=== PATIENT | female | born 1950 | race Caucasian/White ===

== ENCOUNTER 2016-12-12 14:30 | Outpatient (CLI) | payer MEDICARE, OTHER ==
[~2016-12-12] VITALS: Ht 167.6 cm; Wt 96.6 kg
--- NOTE | ~2016-12-12 | HEMODYNAMI ---
PATIENT:ANGELES LEAL MEDICAL RECORD: [id number] : 54 [facility] [id number] ADMISSION DATE: 12/12/16 Generatedon:12/13/201616:30 Patient name: ANGELES LEAL Patient #: [id number] SSN: D OB: 1950 Date of study: 12/13/2016 Page: Of Hemodynamic Procedure Report Patient Data Patient Demographics Procedure consent was obtained First Name: ANGELES Gender: Female Last Name: MEL : 1950 Patient #: [id number] Age: 66 year(s) Race: Additional ID: [id number] Contact details [address]: [address] [place] [address] State: [place] City: [place] Zip code: [address] Past Medical History History of disease Date Diagnosis Comments CAD Allergies Allergen Reaction Date Comments Reported Other allergy 10/17/2015 LIDOCAINE PRAVACHOL CETACAINE BENZOCAINE Tetracycline 12/13/2016 Other allergy 12/13/2016 PRAVASTATIN, BENZOCAINE, BUTAMBEN Other allergy 12/13/2016 LIDOCAINE Admission Admission Data Admission Date: 12/12/2016 Admission Time: 14:44 Room #: 2115 Weight (lbs.): 229.28 Weight (kg.): 104 Lab Results Lab Result Date: 12/13/2016 Lab Result Time: 0:00 Biochemistry Name Units Result Min Max BUN mg/dl 20 --(----)*- 7 18 Creatinine mg/dl 0.9 --(-*--)-- 0.6 1.3 CBC Name Units Result Min Max Hemoglobin g/dl 14.6 --(-*--)-- 13.5 17.5 Procedure Procedure Types Cath Procedure Diagnostic Procedure LHC LHC w/Coronaries w/Grafts PCI Procedure SVG-BMS/ALVINO Initial Miscellaneous Procedures Moderate Sedation up to 45 minutes Procedure Description Procedure Date Procedure Date: 12/13/2016 Procedure Start Time: 15:49 Procedure End Time: 16:26 Procedure Staff Name Function Ector Vera MD Performing Physician Abbey López RN Nurse Laurent Sanches RT Monitor Shabbir Sorenson RT Scrub Procedure Data Cath Procedure Fluoroscopy Diagnostic fluoroscopy Total fluoroscopy Time: time: 15.3 min 15.3 min Diagnostic fluoroscopy Total fluoroscopy dose: dose: 1255 mGy 1255 mGy Contrast Material Contrast Material Type Amount (ml) Isovue 300 212 Entry Location Entry Primary Successful Side Size Upsize Upsize Entry Closure Succes sful Closure Location (Fr) 1 (Fr) 2 (Fr) Remarks Device Remarks Femoral Right 5 Fr 6 Fr Vascade artery Short Closure System Diagnostic catheters Device Type Used For End Catheter Placement Cordis 5Fr Pigtail LV Angiography Catheter (MP) Cordis 5Fr JL 4.0 Left Coronary Catheter (MP) Angiography Cordis 5Fr 3DRC Catheter SVG Angiography (MP) Diagnostic Infinity 5Fr SVG Angiography AR 2 MOD catheter Procedure Complications No complications Procedure Medications Medication Administration Route Dosage Oxygen NC 2 l/min Heparin Flush Bag added to field 2 bags (1000units/500ml NS) Versed I.V. 1 mg Fentanyl I.V. 50 mcg Versed I.V. 1 mg Fentanyl I.V. 50 mcg Fentanyl I.V. 25 mcg Versed I.V. 0.5 mg Fentanyl I.V. 25 mcg Versed I.V. 0.5 mg Heparin Bolus I.V. 4000 units Fentanyl I.V. 25 mcg Versed I.V. 0.5 mg Fentanyl I.V. 25 mcg Versed I.V. 0.5 mg Plavix P.O. 75 mg Hemodynamics Rest HGB: 14.6 (g/dl) Heart Rate: 58 (bpm) Snapshots Pre Cath Intra NCS Post Cath Vital Signs Time Heart Resp SPO2 etCO2 PN3dwel NIBP (mmHg) Rhythm Pain Sedation Rate (ipm) (%) (mmHg) (mmHg) Status Level (bpm) 15:35:11 61 15 100 0 0 158/84(109) NSR 0 (11) 10(A) , No pain 15:39:35 58 16 96 0 0 160/76(132) NSR 0 (11) 10(A) , No pain 15:44:01 56 15 96 0 0 148/68(115) NSR 0 (11) 10(A) , No pain 15:48:23 55 16 98 0 0 134/66(103) NSR 0 (11) 10(A) , No pain 15:52:40 59 15 100 0 0 148/70(121) NSR 0 (11) 10(A) , No pain 15:57:02 57 16 99 0 0 141/67(117) NSR 0 (11) 9(A) , No pain 16:01:22 61 16 98 0 0 123/63(100) NSR 0 (11) 9(A) , No pain 16:05:36 60 16 98 0 0 119/61(92) NSR 0 (11) 9(A) , No pain 16:09:50 60 16 97 0 0 109/60(80) NSR 0 (11) 9(A) , No pain 16:13:57 60 16 98 0 0 129/67(105) NSR 0 (11) 9(A) , No pain 16:18:11 60 16 98 0 0 135/69(104) NSR 0 (11) 9(A) , No pain 16:22:28 59 16 99 0 0 125/70(101) NSR 0 (11) 9(A) , No pain 16:24:39 59 16 98 0 0 142/70(122) NSR 0 (11) 9(A) , No pain Medications Time Medication Route Dose Verified Delivered Reason Notes Effectiveness by by 15:35:25 Oxygen NC 2 Ector Abbey Per physician l/min Jody López RN 15:35:32 Heparin Flush added 2 Ector Abbey used for Bag to bags Jody López RN procedure (1000units/500ml field NS) 15:41:27 Versed I.V. 1 mg Ector Abbey for sedation Jody López RN 15:41:34 Fentanyl I.V. 50 Ector Abbey for sedation mcg Jody López RN 15:45:56 Versed I.V. 1 mg Ector Abbey for sedation Jody López RN 15:45:59 Fentanyl I.V. 50 Ector Abbey for sedation mcg Jody López RN 15:47:17 Fentanyl I.V. 25 Ector Abbey for sedation mcg Jody López RN 15:47:21 Versed I.V. 0.5 Ector Abbey for sedation mg Jody López RN 15:50:20 Fentanyl I.V. 25 Ector Abbey for sedation mcg Jody López RN 15:50:29 Versed I.V. 0.5 Ector Abbey for sedation mg Jody López RN 15:52:05 Fentanyl I.V. 25 Ector Abbey for sedation mcg Jody López RN 15:52:36 Versed I.V. 0.5 Ector Abbey for sedation mg Jody López RN 15:56:11 Heparin Bolus I.V. 4000 Ector Abbey for verifi ed units Jody López RN anticoagulation with dr vera 16:00:05 Fentanyl I.V. 25 Ector Abbey for sedation mcg Jody López RN 16:00:23 Versed I.V. 0.5 Ector Abbey for sedation mg Jody López RN 16:23:49 Plavix P.O. 75 mg Ector Abbey for Jody López RN antiplatelet therapy Procedure Log Time Note 14:59:32 Time tracking: Regular hours 14:59:37 Plan of Care:Hemodynamics will remain stable., Cardiac rhythm will remain stable., Comfort level will be maintained., Respiratory function will remain adequate., Patient/ family verbilizes understanding of procedure., Procedure tolerated without complication., Recovers from procedure without complications.. 15:00:38 Laurent Sanches RT(R) sent for patient. Start room use. 15:31:35 Patient received from PCU to CCL 1 Alert and oriented. Tansferred to table in Supine position. 15:31:36 Warm blankets applied, and estela hugger turned on for patient comfort. 15:31:36 Correct patient and procedure confirmed by team. 15:31:38 Signed procedure consent form obtained from patient. 15:31:38 ECG and BP/O2 sat monitors applied to patient. 15:33:57 Vital chart was started 15:35:25 Oxygen 2 l/min NC was given by Abbey López RN; Per physician; 15:35:32 Heparin Flush Bag (1000units/500ml NS) 2 bags added to field was given by Abbey López RN; used for procedure; 15:35:41 ACC Patient presents with Unstable Angina CCS Anginal Class 3--Marked limitation of physical activity, angina occurs with ordinary activity.. 15:35:43 Diagnostic Cath status Urgent 15:36:40 Baseline sample Acquired. 15:36:44 Rhythm: sinus rhythm 15:36:46 Full Disclosure recording started 15:36:50 H&P Date Dictated: 12/13/2016 Within 30 days and on chart.. 15:36:51 Pre-procedure instructions explained to patient. 15:36:51 Pre-op teaching completed and patient verbalized understanding. 15:36:54 Family in patients room. 15:36:59 Patient NPO since Midnight. 15:37:21 Patient allergic to Tetracycline 15:37:48 Patient allergic to Other allergyPRAVASTATIN, BENZOCAINE, BUTAMBEN 15:37:50 Is the patient allergic to Iodine/contrast media? No. 15:37:54 Is patient on blood thinner?Yes 15:37:57 ACC The patient was administered the following blood thiners within the last 24 hours: ACCPlavix 15:38:09 Patient diabetic? Yes. 15:38:10 If diabetic: On Metformin? Yes 15:38:15 If on Metformin: Last Dose? 12/12/2016 15:38:17 ----Pre-sedation anethsthesia assessment.---- 15:38:19 Previous problem with sedation/anesthesia? No ? 15:38:23 Snore? Yes 15:38:25 Sleep apnea? Yes 15:38:26 Deviated septum? No 15:38:27 Opens mouth fully? Yes 15:38:28 Sticks out tongue? Yes 15:38:47 Airway obstruction? Yes BRONCHITIS 15:38:53 Dentures? No ? 15:38:55 Pre procedure: right dorsailis pedis pulse 1+ Palpable, but thready & weak; easily obliterated 15:38:59 Patient pain scale 0/10 ?. 15:39:03 IV patent on arrival in left forearm with 0.9% NaCl at 10ml/hr. 15:40:01 Lab Result : BUN 20 mg/dl 15:40:01 Lab Result : Creatinine 0.9 mg/dl 15:40:01 Lab Result : Hemoglobin 14.6 g/dl 15:40:15 Lab results completed and on chart. 15:40:19 Right groin area was prepped with chlora-prep and draped in sterile fashion 15:40:20 Alarms reviewed by R. N. 15:40:20 Sharps counted by scrub and verified by R.N. 15:40:21 --------ALL STOP TIME OUT------ 15:40:21 Final Timeout: patient, procedure, and site verified with staff and physician. All members of the team are in agreement. 15:40:27 Right groin site verified by team. 15:40:32 Physical assessment completed. ASA score P 2 - A patient with mild systemic disease as per Ector Vera MD. 15:40:36 Sedation plan: IV Moderate Sedation Versed, Fentanyl 15:41:06 Use device set Femoral Dx 15:41:08 Acist Syringe opened to sterile field. 15:41:08 Bag Decanter opened to sterile field. 15:41:08 Medline Cath Pack opened to sterile field. 15:41:09 Terumo 5Fr Waban Sheath opened to sterile field. 15:41:09 St Christiano 260cm J .035 wire opened to sterile field. 15:41:10 Acist Hand Control opened to sterile field. 15:41:11 Acist Manifold opened to sterile field. 15:41:11 Diagnostic Infinity 5Fr Multipack catheter opened to sterile field. 15:41:11 Tegaderm 4 x 4 opened to sterile field. 15:41:27 Versed 1 mg I.V. was given by Abbey López RN; for sedation; 15:41:34 Fentanyl 50 mcg I.V. was given by Abbey López RN; for sedation; 15:42:00 Patient Weight : 229.28 lbs 15:42:41 Patient allergic to Other allergyLIDOCAINE 15:45:56 Versed 1 mg I.V. was given by Abbey López RN; for sedation; 15:45:59 Fentanyl 50 mcg I.V. was given by Abbey López RN; for sedation; 15:47:17 Fentanyl 25 mcg I.V. was given by Abbey López RN; for sedation; 15:47:21 Versed 0.5 mg I.V. was given by Abbey López RN; for sedation; 15:49:50 Procedure started. 15:50:20 Fentanyl 25 mcg I.V. was given by Abbey López RN; for sedation; 15:50:21 A 5 Fr sheath was inserted into the Right Femoral artery 15:50:29 Versed 0.5 mg I.V. was given by Abbey López RN; for sedation; 15:50:29 A Cordis 5Fr Pigtail Catheter (MP) was advanced over the wire and used for LV Angiography. 15:50:59 LV angiography performed. 15:51:03 EF : 60 % 15:51:05 LV gram done using JAUREGUI 15:51:08 Catheter removed. 15:51:51 A Cordis 5Fr JL 4.0 Catheter (MP) was advanced over the wire and used for Left Coronary Angiography. 15:51:55 LCA angiography performed. 15:52:05 Fentanyl 25 mcg I.V. was given by Abbey López RN; for sedation; 15:52:13 Catheter removed. 15:52:20 A Cordis 5Fr 3DRC Catheter (MP) was advanced over the wire and used for SVG Angiography. 15:52:25 RCA angiography performed. 15:52:36 Versed 0.5 mg I.V. was given by Abbey López RN; for sedation; 15:52:39 DUMONT to LAD angiography performed. 15:52:48 ACCDominant side:Co-Dominant 15:52:53 RCA angiography performed. 15:52:57 Catheter removed. 15:53:04 A Diagnostic Infinity 5Fr AR 2 MOD catheter was advanced over the wire and used for SVG Angiography. 15:53:49 SVG to OM angiography performed. 15:53:53 SVG to RCA angiography performed. 15:54:51 Catheter removed. 15:56:03 Terumo 6Fr Waban Sheath opened to sterile field. 15:56:03 Wasabi 3D BasixCompak Inflation Kit opened to sterile field. 15:56:04 Cantu Whisper J 300cm 0.014 guide wire opened to sterile field. 15:56:04 Spayeetronic Launcher 6Fr MB 1 guide catheter opened to sterile field. 15:56:11 Heparin Bolus 4000 units I.V. was given by Abbey López RN; for anticoagulation; verified with dr vera 15:56:12 Sheath upsized to a 6 Fr Short. 15:56:20 6 Fr MB 1 guide catheter was inserted over the wire 15:57:58 Guide catheter removed. 15:58:20 Medtronic Launcher 6Fr AR 2.0 guide catheter opened to sterile field. 15:58:27 6 Fr AR 2 guide catheter was inserted over the wire 15:59:13 ACC PCI Site: dRCA has 80% stenosis. 15:59:15 ACC Pre-intervention RUSTAM Flow is 3. 15:59:26 WHISPER wire advanced. 16:00:05 Fentanyl 25 mcg I.V. was given by Abbey López RN; for sedation; 16:00:23 Versed 0.5 mg I.V. was given by Abbey López RN; for sedation; 16:01:00 The Spayeetronic Integrity 2.25 X 14 stent was advanced then removed because of failure to cross lesion 16:01:03 Stent catheter was removed intact over wire. 16:01:04 Wire removed. 16:01:04 Guide catheter removed. 16:01:13 Medtronic Launcher 6Fr MB 2 guide catheter opened to sterile field. 16:01:26 6 Fr MB 2 guide catheter was inserted over the wire 16:02:44 Catheter removed. unable to cannulate vessel. 16:04:52 Medtronic Launcher 6Fr VICKI 90 guide catheter opened to sterile field. 16:05:16 6 Fr 90CM VICKI guide catheter was inserted over the wire 16:06:50 Catheter removed. unable to cannulate vessel. 16:07:04 Medtronic Launcher 6Fr RCB guide catheter opened to sterile field. 16:07:16 6 Fr RCB guide catheter was inserted over the wire 16:07:22 WHISPER wire advanced. 16:10:59 Wire removed. 16:11:04 Guide Catheter removed. unable to cannulate vessel. 16:11:29 Cantu MedWhatisper J 300cm 0.014 guide wire opened to sterile field. 16:11:31 Medtronic Launcher 6Fr AR 1.0 guide catheter opened to sterile field. 16:11:37 6 Fr AR 1 guide catheter was inserted over the wire 16:11:51 Catheter removed. unable to cannulate vessel. 16:14:44 Medtronic Launcher 6Fr MB 1 guide catheter opened to sterile field. 16:15:55 Guide Catheter removed. unable to cannulate vessel. 16:16:05 Medtronic Launcher 6Fr MB 2 guide catheter opened to sterile field. 16:17:48 6 Fr MB 2 guide catheter was inserted over the wire 16:17:51 Guide Catheter removed. unable to cannulate vessel. 16:17:57 Medtronic Launcher 6Fr AL 1.0 guide catheter opened to sterile field. 16:18:08 6 Fr AL 1 guide catheter was inserted over the wire 16:19:40 NEW WHISPER wire advanced. 16:21:38 Inflation Number: 1 A Spayeetronic Integrity 2.25 X 14 stent was prepped and advanced across the Aorta Right -> Dist RCA. The stent was deployed at 13 HEMANTH for 0:10 (min:sec). 16:22:08 Inflation number: 2 The stent balloon was then re-inflated across the Aorta Right -> Dist RCA to 19 HEMANTH for 0:10 (min:sec). 16:22:21 Stent catheter was removed intact over wire. 16:22:22 Wire removed. 16:22:23 Guide catheter removed. 16:22:29 Contrast amount:Isovue 300 212ml. 16:22:39 Sheath removed intact; hemostasis achieved with Vascade Closure System to the Right Femoral artery. 16:22:47 Vascade 6/7 Fr Closure Device opened to sterile field. 16:22:52 Procedure ended.(Physican Out) 16:23:38 Procedure type changed to Cath procedure, Diagnostic procedure, LHC, LHC w/Coronaries w/Grafts, PCI procedure, SVG-BMS/ALVINO Initial, Miscellaneous Procedures, Moderate Sedation up to 45 minutes 16:23:49 Plavix 75 mg P.O. was given by Abbey López RN; for antiplatelet therapy; 16:24:14 Fluoroscopy time 15.30 minutes. 16:24:24 Flurop Dose total: 1255 16:24:24 Fluoroscopy dose: 1255 mGy 16:24:31 Sharps counted by scrub and verified by R.N. 16:24:34 Insertion/operative site no bleeding no hematoma. 16:24:45 Post-op/insertion site Right Femoral artery dressed using a 4 x 4 and Tegaderm. 16:24:48 Post right femoral artery:stable 16:24:52 Post Procedure Pulses reassessed and unchanged 16:24:55 Post procedure: right dorsailis pedis pulse 1+ Palpable, but thready & weak; easily obliterated. 16:24:58 Post procedure rhythm: sinus rhythm 16:25:00 Post procedure instruction explained to patient.Patient verbalizes understanding. 16:25:56 Procedure and supply charges have been captured, reviewed, submitted and are correct. 16:26:00 Procedure Complication : No complications 16:26:32 Vital chart was stopped 16:26:33 See physician's report for complete and final results. 16::37 Report given to PCU. 16::40 Patient transfered to PCU with Bed. 16:26:41 Procedure ended. 16:26:41 Full Disclosure recording stopped 16:26:51 ACC-PCI Only Patient was given prescriptions, or instructed by Ector Vera MD to start/continue the following medications upon discharge: Plavix 16:26:52 End room use (Document Last) Intervention Summary Intervention Notes Time ActionType Lesion and Equipment Action# Pressure Duration Attributes Used 16:01:00 Discard Medtronic Stent Integrity 2.25 X 14 stent 16:21:38 Place stent Aorta Right Medtronic 1 13 00:10 -> Dist RCA Integrity 2.25 X 14 stent 16:22:08 Reinflate Aorta Right Medtronic 2 19 00:10 stent -> Dist RCA Integrity balloon 2.25 X 14 stent Device Usage Item Name Manufacture Quantity Catalog Hospital Part Current Minima l Lot# / Number Charge Number Stock Stock Serial# Code Acist Acist 1 08149 570489 961864 019606 20 Syringe Medical Systems [employer] Pvt Bag Microtek 1 2002S 995621 66632 494050 5 PeeplePass Inc. Medline Cardinal 1 [id number] 789586 33115 707523 5 Cath Pack BuyItRideIt Terumo 5Fr Terumo 1 [id number] 089243 827892 475517 [address] Christian[address] St Christiano 1 473267 206760 461626 779757 30 260cm J .035 wire Acist Hand Acist 1 23900 928747 534905 861215 5 TradeHero Medical Systems Inc Acist Acist 1 87951 947665 845021 613757 5 TripMark Medical Systems Inc Diagnostic Cardinal 1 [id number] 594115 04287 629546 30 Retellity 5Fr Multipack catheter Tegaderm 4 3M 1 1626W 903743 492771 920193 5 x 4 Cordis 5Fr Cardinal 1 678298 5 Pigtail Health Catheter (MP) Cordis 5Fr Cardinal 1 301872 5 JL 4.0 Health Catheter (MP) Cordis 5Fr Cardinal 1 015590 5 3DRC Health Catheter (MP) Diagnostic Cardinal 1 [id number] 671128 456011 364733 20 Infinity Health 5Fr AR 2 MOD catheter Terumo 6Fr Terumo 1 [id number] 581990 370329 223840 40 Waban Sheath Merit Merit 1 VA8108 730017 645141 110716 15 Britely Medical Inflation Kit Cantu Cantu 2 [id number] 687284 358024 250539 5 Whisper J Vascular 300cm 0.014 guide wire Medtronic Medtronic 2 [id number] 489209 28438 363969 1 Launcher 6Fr MB 1 guide catheter Medtronic Medtronic 1 [id number] 353682 74494 750955 1 Launcher 6Fr AR 2.0 guide catheter Medtronic Medtronic 1 [id number] 046748 406794 071378 8 [id number] Integrity 2.25 X 14 stent Medtronic Medtronic 2 [id number] 173332 54245 319666 1 Launcher 6Fr MB 2 guide catheter Medtronic Medtronic 1 [id number] 624112 76877 291550 1 Launcher 6Fr VICKI 90 guide catheter Medtronic Medtronic 1 [id number] 041430 73272 747472 1 Launcher 6Fr RCB guide catheter Medtronic Medtronic 1 [id number] 111693 94740 304717 1 Launcher 6Fr AR 1.0 guide catheter Medtronic Medtronic 1 [id number] 425092 96385 932095 1 Launcher 6Fr AL 1.0 guide catheter Vascade 6/7 Cardiva 1 [id number] 838572 719270 937763 5 Fr Closure Medical, Device Inc. Signature Audit [place] Stage Time Signature Unsigned Intra-Procedure 12/13/2016 Shabbir Sorenson 4:30:49 PM RT(R) Signatures Monitor : Laurent Sanches RT Signature : Date : Time : [facility] [address] [place] [address]
[2016-12-12 13:36] LABS: BASOPHILS 0.3 % (0.0-2.0); EOSINOPHILS 1.7 % (0-7); HEMOGLOBIN 14.6 g/dL (12-16); IMMATURE GRANULOCYTES 0.1 % (0-5); LYMPHOCYTES 22.4 % (15-50); MCH 33.8 pg (26.0-34.0); MCV 99.5 fL (80.0-100.0); MEAN PLATELET VOLUME 9.9 fL (7.4-10.4); MONOCYTES 9.1 % (2-11); NEUTROPHILS 66.4 % (40-80); PLATELET COUNT 229 10x3/uL (130-400); RBC 4.32 10x6/uL (4.00-5.40); RDW 12.5 % (11.5-14.5); WBC 7.1 10x3/uL (4.8-10.8)
[2016-12-12 13:52] LABS: ALBUMIN 3.8 g/dL (3.4-5.0); ALKALINE PHOSPHATASE 118 U/L (46-116); ALT (SGPT) 27 U/L (10-68); BILIRUBIN - TOTAL 0.52 mg/dL (0.2-1.3); CALC OSMOLALITY 280 mosm/kg (275-300); CALCIUM 9.4 mg/dL (8.5-10.1); CARBON DIOXIDE 25.4 mmol/L (21.0-32.0); CHLORIDE - SERUM 103 mmol/L (98-107); CREATININE - SERUM 0.9 mg/dL (0.6-1.3); GLUCOSE 93 mg/dL (74-106); POTASSIUM - SERUM 4.9 mmol/L (3.5-5.1); PROTEIN - SERUM 7.4 g/dL (6.4-8.2); SODIUM 139 mmol/L (136-145); UREA NITROGEN 20 mg/dL (7-18); eGFR NON AFRICAN AMERICAN 67 mL/min (90-120)
[2016-12-12 14:04] LABS: CHOL - HDL RATIO 4.9 ratio (2.3-4.1); CHOLESTEROL, TOTAL 265 mg/dL (0-200); CKMB 3.1 U/L (0.0-3.6); CREATINE KINASE 212 UL (21-215); HDL CHOLESTEROL 54 mg/dL (32-96); PRO BNP 493 pg/mL (0-125); TRIGLYCERIDE 439 mg/dL (30-200)
[2016-12-12 14:05] LABS: TROPONIN-I < 0.017 ng/mL (0.000-0.060)
[~2016-12-12 14:30] MED LIST: ACTOS30 MG PO; ADVAIR 250/501 DISK INH; AMITIZA24 MCG PO; APAP325 MG PO; ASPIRIN325 MG PO; BETADINE TP; CARAFATE1 G PO; CHRONULAC30 ML PO; CLEOCIN HCL300 MG PO; DIABETA5 MG PO; DULCOLAX10 MG/SUPP RC; FLAXSEED OIL1000 MG PO; GLUCOPHAGE1000 MG PO; GLUCOPHAGE500 MG PO; HEMOCYTE PLUS1 CAP PO; HUMALOG 30100 UNITS/; HUMULIN N100 U/ML SC; HUMULIN N3 ML SQ; HYDROCODONE-APA1 TAB PO; JANUVIA100 MG PO; K-DUR20 MEQ PO; LAC-HYDRIN 5226 ML TP; LASIX20 MG PO; LEVAQUIN500 MG PO; LISINOPRIL10 MG PO; LISINOPRIL5 MG PO; LOPRESSOR25 MG PO; MILK OF MAGNESI30 ML PO; MIRALAX17 GM PO; MOBIC7.5 MG PO; MULTI-DAY VITAM1 TAB PO; NEOSPORIN OINTM15 GM TP; NEURONTIN 300300 MG PO; NEURONTIN600 MG PO; NIASPAN500 MG PO; NITROSTAT0.4 MG SL; NORCO 5/325 TAB1 TA1 PO; ONDANSETRON4 MG/2 M3 IV; OYSTER SHELL C1 EAC1 PO; POVIDONE-IODINE30 GM TP; PRAVACHOL40 MG PO; PRAVACHOL80 MG PO; PRILOSEC20 MG PO; PROVENTIL/2.5 MG/3 M NEB; REGLAN10 MG PO; ROBAXIN500 MG PO; SENNA-C8.6 MG PO; SINGULAIR10 MG PO; TOPAMAX25 MG PO; TRIPLE ANTIB28.35 GM TP; ULTRAM50 MG PO; VENTOLIN HFA18 GM INH; ZOCOR20 MG PO
--- NOTE | 2016-12-12 15:36 | NUR ---
TRANSFER FROM ER BY W/C. TAOINTED TO ROOM. CALL LIGHT IN REACH. WILL CONT. PLAN OF CARE.
[2016-12-12] MEDS ORDERED: LIPITOR10 MG PO (15:48)
[2016-12-12] MEDS ORDERED: OMEPRAZOLE40 MG PO (15:51)
[2016-12-12] MEDS ORDERED: MOBIC7.5 MG PO (15:52)
[2016-12-12] MEDS ORDERED: PROAIR HFA8.5 GM INH (15:55)
[2016-12-12] MEDS ORDERED: MYSOLINE 50 MG50 MG PO (15:56)
[2016-12-12] MEDS ORDERED: TOPAMAX50 MG PO (15:57)
[2016-12-12] MEDS ORDERED: CARAFATE1 G PO (15:57)
[2016-12-12] MEDS ORDERED: NAPROSYN500 MG PO (16:01)
[2016-12-12] MEDS ORDERED: ZANTAC150 MG PO (16:02)
[2016-12-12] MEDS ORDERED: BACLOFEN10 MG PO (16:02)
[2016-12-12 16:24] VITALS: BP 156/73; BMI 34.4
--- NOTE | 2016-12-12 16:38 | NUR ---
CONSENTS SIGNED FOR [facility]. WILL CONT. PLAN OF CARE.
[2016-12-12 19:07] LABS: CKMB 2.2 U/L (0.0-3.6); CREATINE KINASE 118 UL (21-215)
[2016-12-12 19:08] LABS: TROPONIN-I < 0.017 ng/mL (0.000-0.060)
[2016-12-12 20:00] VITALS: BP 109/72
[2016-12-13] VITALS: BP 104/65
[2016-12-13 01:22] LABS: CKMB 2.3 U/L (0.0-3.6); CREATINE KINASE 113 UL (21-215); TROPONIN-I < 0.017 ng/mL (0.000-0.060)
--- NOTE | 2016-12-13 03:32 | NUR ---
ENGRAVER AUTOMATIC AT BEDSIDE TO OBTAIN VITALS, CALL LIGHT IN REACH. WILL CONTINUE WITH PLAN OF CARE.
[2016-12-13 04:00] VITALS: BP 135/79
--- NOTE | 2016-12-13 07:34 | NUR ---
RESTING QUIETLY AAOX4 DENIES ANY NEEDS OR DISCOMFORT RESP UNLABORED NAD NOTED
[2016-12-13 07:35] LABS: CKMB 2.4 U/L (0.0-3.6); CREATINE KINASE 112 UL (21-215); TROPONIN-I < 0.017 ng/mL (0.000-0.060)
--- NOTE | 2016-12-13 07:48 | NUR ---
ASSESSMENT COMPLETED. TELEMERTY SHOWS SR WITH A BUNDLE BRANCH BLOCK WITH A RATE OF 53. IV TO LEFT FLETCHER ELKINS FOR CATH. WILL MONITOR
[2016-12-13 08:07] VITALS: BP 125/56
[2016-12-13 11:23] VITALS: BP 143/76
[2016-12-13 12:18] VITALS: Ht 167.6 cm; Wt 96.6 kg
--- NOTE | 2016-12-13 12:20 | NUR ---
LYING QUIETLY. DENIES ANY NEEDS. AWAITING CATH. [facility] SHOWS SR
--- NOTE | 2016-12-13 15:30 | NUR ---
TO COAT HANGER SHAPER MACHINE OPERATOR PER BED
--- NOTE | 2016-12-13 16:30 | NUR ---
RECIEVED FROM YOUTH MANAGER. V/S STAVLE TELEMERTY SHOWS SR.RIGHT GROIN SOFT WITH DRSG DRY AND INTACT. PPP. CALL LIGHT IN REACH WITH SR UP
--- NOTE | 2016-12-13 18:05 | NUR ---
LYING QUIETLY. FAMILY AT BEDSIDE. RIGHT GROIN SOFT WITH DRSG DRY AND INTACT. PPP. AWAKENS EASILY. V/S STABLE. WILL MONITOR
--- NOTE | 2016-12-13 20:12 | NUR ---
4 HOUR LAY COMPLETE. R.GROIN DRSG CDI NO S/S OF BLEEDING OR HEMATOMA NOTED. PERIPHERAL PULSES INTACT. VSS. PT IS READY TO BE DISCHARGED. DISCHARGE INSTRUCTIONS COMPLETED AND PAPERS SIGNED. SCRIPT GIVEN FOR PLAVIX. REMOVED PTS L.HAND PIV WITH CATHETER TIP FULLY INTACT. BELONGINGS COLLECTED. WHEELED PT TO LOBBY WHERE FAMILY WAS WAITING TRANSPORTATION. NO FURTHER NEEDS.
--- NOTE | 2016-12-23 10:08 | DS ---
PATIENT:ANGELES SPANGLER :54 MEDICAL RECORD: [id number] DISCHARGE SUMMARY ADMISSION DATE: 12/12/16 DISCHARGE DATE: 12/13/16 DISCHARGE DIAGNOSES: 1. Percutaneous transluminal coronary angioplasty stent right coronary artery this admission. 2. Angina. 3. Coronary artery disease. 4. Status post coronary bypass graft surgery. 5. Hypertension. 6. Hyperlipidemia. HOSPITAL COURSE: Mrs. Spangler presents with anginal symptomatology, found to have significant disease to the RCA after the patent vein graft, underwent successful PTCA stent of this territory. She had an uneventful postop course. She was discharged home with the addition of aspirin and Plavix to her medical regimen. We will follow up with [facility] in 1 month. TRANSINT:[id number] Voice Confirmation ID: [id number] DOCUMENT ID: [id number] REMA BRITT MD at 1008 CC: [id number] DICTATION DATE: 12/13/16 1626 SVP GROUP DIRECTOR: 12/14/16 0302 DEP CLI 12/13/16 [id number] [place] [address]
--- NOTE | 2016-12-23 10:08 | HP ---
PATIENT: ANGELES SPANGLER MEDICAL RECORD: [id number] ACCOUNT: [id number] LOCATION:ANGEL : 54 ADMISSION DATE: 12/12/16 HISTORY AND PHYSICAL EXAMINATION ADMITTING DIAGNOSES: 1. Unstable angina. 2. Coronary artery disease. 3. Status post coronary bypass graft surgery. 4. Chronic obstructive pulmonary disease. 5. Smoking history. 6. Hyperlipidemia. HISTORY OF PRESENT ILLNESS: Mrs. Spangler presents with 4 days of increasing episodes of chest pain, chest discomfort compatible with angina. Her EKG has T-wave inversions anteriorly. Troponin is normal, but she continues to have episodes of chest pain. PHYSICAL EXAMINATION: GENERAL APPEARANCE: Well-nourished, well-developed, appears stated age. Level of distress, comfortable. PSYCHIATRIC: Mental status, alert, normal affect. Orientation, oriented to time, place and person. EYES: Lids and conjunctiva, noninjected. No discharge, no pallor. ENT: Lips, teeth, gums, normal dentition. Oropharynx, no cyanosis, no pallor. NECK: Carotid arteries, bilateral normal upstroke, no bruits, no thrills. JUGULAR VEINS: No jugular venous pressure or distention. CERVICAL LYMPH NODES: Nontender, nonenlarged. THYROID: Not enlarged. Nontender. No nodules. LUNGS: Respiratory effort, unlabored. CHEST: Normal curvature. No thoracic deformity. No chest wall tenderness. Percussion, resonant. Auscultation, clear. No wheezes, no rales, no rhonchi. CARDIOVASCULAR: Precordial exam, nondisplaced. No heaves or pericardial thrills. Rate and rhythm, regular. Heart sounds, normal S1, normal S2. No S3, no gallop, no rub. Systolic murmur, not heard. Diastolic murmur, not heard. EXTREMITIES: No cyanosis, no edema. Peripheral pulses, full and equal in all extremities, except as noted. No bruits appreciated. ABDOMEN: Soft, nondistended. Normal aorta. No bruit. Nontender. No masses. Liver, nontender, no hepatomegaly. Spleen, nontender, no splenomegaly. MUSCULOSKELETAL: No joint tenderness. No joint swelling. No erythema. NEUROLOGICAL: Normal gait, normal strength, normal tone. SKIN: Warm and dry. REVIEW OF SYSTEMS: The patient reports easy bruising but reports no swollen glands. The patient reports no fever, no night sweats, no significant weight gain, no significant weight loss. No significant exercise tolerance. The patient reports no dry eyes, no irritation, no vision change. Patient reports no difficulty hearing and no ear pain. Patient reports no frequent nose bleeds or nose and sinus problems. Patient reports on arm pain on exertion. No shortness of breath while lying down. No history of heart murmur. Patient reports no cough, no wheezing or coughing up blood. Patient reports no abdominal pain, no vomiting. Normal appetite. No diarrhea and not vomiting blood. No nausea and no constipation. Patient reports no incontinence. No difficulty urinating. No hematuria. No increased frequency. Patient reports no muscle aches. No weakness, no arthralgias, no back pain. No swelling of the HISTORY AND PHYSICAL [id number] MEL,ANGELES extremities. Patient reports no abnormal mole, no jaundice, no rashes. Reports no loss of consciousness. No weakness and no numbness. No seizures, dizziness, or headaches. The patient reports no depression, no sleep disturbance, feeling safe in a relationship and no alcohol abuse. Patient reports on fatigue. Reports no runny nose or sinus pressure. No itching, no hives, and no frequent sneezing. OVERALL IMPRESSION: Chest pain compatible with angina with a past history of coronary artery disease. Most likely, she has recurrent hemodynamically significant coronary artery disease, especially with the abnormal ECG. We will proceed with coronary angiography in the a.m. Further care depends upon findings of the angiography. TRANSINT:[id number] Voice Confirmation ID: [id number] DOCUMENT ID: [id number] REMA BRITT MD at 1008 CC: [id number] DICTATION DATE: 12/12/16 1550 GUITAR INSTRUCTOR: 12/12/16 1818 DEP CLI 12/13/16 [id number] [place] [address]
--- NOTE | 2016-12-23 10:08 | OP ---
PATIENT NAME: ANGELES LEAL MEDICAL RECORD: [id number] :54 LOCATION:D.OPS ADMISSION DATE: SURGEON: REMA BRITT MD DATE OF OPERATION: 12/13/2016 PROCEDURES: 1. PTCA stent, RCA through vein graft. 2. Left heart catheterization. 3. Selective coronary angiography. 4. Vein graft angiography. 5. DUMONT angiography. 6. Left ventriculogram. INDICATIONS: Angina and coronary artery disease. PROCEDURE IN DETAIL: After informed consent was obtained and after a detailed explanation of the risks, benefits as well as alternative therapies, the patient elected to proceed with angiogram and angioplasty. The right femoral area was prepped and draped in normal sterile fashion. The right femoral artery was cannulated via modified Seldinger technique with placement of 6-Georgian sheath. All catheters exchanged through this sheath. FINDINGS: Left ventriculogram was performed in standard 30-degree JAUREGUI view, reveals good cardiac wall motion, ejection fraction 50%. SELECTIVE CORONARY ANGIOGRAPHY: 1. Left main is with no significant angiographic disease. 2. Left anterior descending is totally occluded in the mid vessel. 3. DUMONT to the LAD is widely patent. 4. Left circumflex has a total occlusion in the mid vessel. 5. Vein graft to the circumflex is widely patent. 6. Right coronary is totally occluded in the mid vessel. 7. Vein graft to the right coronary is patent; however, the distal right coronary has an 80% stenosis after the vein graft. PTCA STENT OF THE DISTAL RCA THROUGH THE VEIN GRAFT: The stent used is a 2.25 x 14 mm Integrity. Result was 0% residual stenosis. OVERALL IMPRESSION: Successful percutaneous transluminal coronary angioplasty stent of the RCA through the vein graft going from 80% initial stenosis to 0% residual. TRANSINT:[id number] Voice Confirmation ID: [id number] DOCUMENT ID: [id number] REMA BRITT MD at 1008 CC: [id number] DICTATION DATE: 12/13/16 1628 THIRD MILLER: 12/13/16 2207 DEP CLI 12/13/16 [place] [address]
== END 2016-12-13 20:14 | disposition home or self-care (01) ==
LOC: OBSVTIME → D.OPS 14:30 → OBSVTIME 14:44 → D.M2 14:44 → D.ER 14:44 → D.M2 14:44 → EDSTATUS 12-13 08:00 → D.M2 12-13 20:14 → D.OPS 12-13 20:14 → D.M2 12-13 20:14
PROVIDERS: Emergency Medicine
DX: I25.110 Atherosclerotic heart disease of native coronary artery with unstable angina pectoris (principal); J44.9 Chronic obstructive pulmonary disease, unspecified; E78.5 Hyperlipidemia, unspecified; Z95.1 Presence of aortocoronary bypass graft; Z87.891 Personal history of nicotine dependence

== ENCOUNTER → 2017-01-06 08:18 | Outpatient (CLI) | payer MEDICARE, OTHER ==
[2016-12-13 12:18] VITALS: BMI 34.3
[~2017-01-06 08:18] MED LIST changes: +BACLOFEN10 MG PO; +LIPITOR10 MG PO; +MYSOLINE 50 MG50 MG PO; +NAPROSYN500 MG PO; +OMEPRAZOLE40 MG PO; +PROAIR HFA8.5 GM INH; +TOPAMAX50 MG PO; +ZANTAC150 MG PO
== END | disposition home or self-care (01) ==
LOC: D.MRI 08:18
DX: M47.812 Spondylosis without myelopathy or radiculopathy, cervical region (principal); R55 Syncope and collapse

== ENCOUNTER 2017-03-10 14:53 | Observation (INO) | payer MEDICARE, OTHER ==
[~2017-03-10] VITALS: Ht 167.6 cm; Wt 88.6 kg
--- NOTE | ~2017-03-10 | HEMODYNAMI ---
PATIENT:ANGELES LEAL MEDICAL RECORD: [id number] : 54 [id number] ADMISSION DATE: 03/10/17 Generatedon:03/11/201712:03 Patient name: ANGELES LEAL Patient #: [id number] SSN: [id number] : 1950 Date of study: 03/11/2017 Page: Of Hemodynamic Procedure Report Patient Data Patient Demographics Procedure consent was obtained First Name: ANGELES Gender: Female Last Name: MEL : 1950 [facility] Initial: K Age: 66 year(s) Patient #: [id number] Race: SSN: [id number] Additional ID: [id number] Contact details [address]: [address] [place] [address] State: [place] City: [place] Zip code: [address] Past Medical History History of disease Date Diagnosis Comments CAD Allergies Allergen Reaction Date Comments Reported Other allergy 10/17/2015 LIDOCAINE PRAVACHOL CETACAINE BENZOCAINE Tetracycline 12/13/2016 Other allergy 12/13/2016 PRAVASTATIN, BENZOCAINE, BUTAMBEN Other allergy 12/13/2016 LIDOCAINE Other allergy 03/11/2017 Lidocaine(can't tolerate in mouth) Pravastatin, Cetacine Admission Admission Data Admission Date: 03/10/2017 Admission Time: 18:00 Room #: D.2120 Lab Results Lab Result Date: 03/11/2017 Lab Result Time: 0:00 Biochemistry Name Units Result Min Max BUN mg/dl 17 --(---*)-- 7 18 CK-MB ng/ml 2.5 --(--*-)-- 0 3.6 Creatinine mg/dl 1.1 --(--*-)-- 0.6 1.3 Creatinine l 135 --(--*-)-- 21 215 Kinase Troponin l ng/ml 0.017 --(-*--)-- 0 0.06 CBC Name Units Result Min Max Hemoglobin g/dl 13.8 --(*---)-- 13.5 17.5 Procedure Procedure Types Cath Procedure Diagnostic Procedure [facility] w/Coronaries PCI Procedure Coronary Stent Initial Miscellaneous Procedures Moderate Sedation up to 15 minutes Peripheral Cath Diagnostic Procedure Abd/Extremity Renal Bilat Renal Arteriogram Procedure Description Procedure Date Procedure Date: 03/11/2017 Procedure Start Time: 11:31 Procedure End Time: 11:59 Procedure Staff Name Function Ector Vera MD Performing Physician Zunilda Pan RT Scrub Anibal Kam RN Nurse Smiley Koehler RT Monitor Procedure Data Cath Procedure Fluoroscopy Diagnostic fluoroscopy Total fluoroscopy Time: time: 11.8 min 11.8 min Diagnostic fluoroscopy Total fluoroscopy dose: dose: 578.9 mGy 578.9 mGy Contrast Material Contrast Material Type Amount (ml) Isovue 300 152 Entry Location Entry Primary Successful Side Size Upsize Upsize Entry Closure Succes sful Closure Location (Fr) 1 (Fr) 2 (Fr) Remarks Device Remarks Femoral Right 5 Fr 6 Fr Exoseal artery Short Estimated blood loss: 10 ml Diagnostic catheters Device Type Used For End Catheter Placement Cordis 5Fr Pigtail LV Angiography Catheter (MP) Cordis 5Fr JL 4.0 Left Coronary Catheter (MP) Angiography Diagnostic Infinity 5Fr Right Coronary AR 2 MOD catheter Angiography Diagnostic Infinity 5Fr SVG Angiography AR 2 MOD catheter Cordis 5Fr 3DRC Catheter Procedure (MP) Diagnostic Infinity 5Fr Procedure AL 1 catheter Diagnostic Infinity 5Fr Procedure MPA-2 catheter Procedure Complications No complications Procedure Medications Medication Administration Route Dosage Oxygen NC 2 l/min Heparin Flush Bag added to field 2 bags (1000units/500ml NS) Lidocaine 2% added to field 20 0.9% NaCl I.V. 100 ml/hr Versed I.V. 1 mg Fentanyl I.V. 50 mcg Versed I.V. 1 mg Fentanyl I.V. 50 mcg Versed I.V. 1 mg Fentanyl I.V. 50 mcg Heparin Bolus I.V. 4000 units Integrilin (Bolus I.V. 7.9 ml 2mg/ml) Plavix P.O. 600 mg Hemodynamics Rest HGB: 13.8 (g/dl) Heart Rate: 48 (bpm) Snapshots Pre Cath Intra NCS Post Cath Vital Signs Time Heart Resp SPO2 NIBP (mmHg) Rhythm Pain Sedation Rate (ipm) (%) Status Level (bpm) 11:08:43 50 17 100 191/82(162) NSR 0 (11) 10(A) , No pain 11:13:42 47 16 98 Measuring NSR 0 (11) 10(A) , No pain 11:14:19 47 13 100 170/77(134) NSR 0 (11) 10(A) , No pain 11:18:45 46 16 100 149/71(119) NSR 0 (11) 10(A) , No pain 11:23:09 50 15 93 112/65(87) NSR 0 (11) 10(A) , No pain 11:27:23 51 15 97 113/63(86) NSR 0 (11) 10(A) , No pain 11:31:37 51 16 98 119/65(105) NSR 0 (11) 9(A) , No pain 11:35:51 50 16 98 106/57(80) NSR 0 (11) 9(A) , No pain 11:40:05 49 15 98 102/57(70) NSR 0 (11) 9(A) , No pain 11:44:17 50 15 98 98/58(71) NSR 0 (11) 9(A) , No pain 11:48:27 50 17 99 102/62(91) NSR 0 (11) 9(A) , No pain 11:52:39 49 17 98 99/55(76) NSR 0 (11) 9(A) , No pain 11:57:38 52 19 99 128/68(95) NSR 0 (11) 10(A) , No pain Medications Time Medication Route Dose Verified Delivered Reason Notes Effectiveness by by 11:07:30 Oxygen NC 2 Buffie Buffie used for l/min Negin Kam white kid buffer 11:07:39 Heparin Flush added 2 Buffie Buffie used for Bag to bags Negin Kam white kid buffer (1000units/500ml field NS) 11:07:50 Lidocaine 2% added 20ml Buffie Buffie used for to vial Negin Kam white kid buffer field 11:08:07 0.9% NaCl I.V. 100 Buffie Buffie used for ml/hr Negin Kam RN procedure 11:28:45 Versed I.V. 1 mg Buffie Buffie for sedation Kam RN Kam RN 11:28:54 Fentanyl I.V. 50 Uniqueie Uniqueie for sedation mcg Negin Kam RN 11:32:07 Versed I.V. 1 mg Anibal Calhounie for sedation Negin Kam RN 11:32:12 Fentanyl I.V. 50 Buffie Buffie for sedation mcg Negin Kam RN 11:36:34 Versed I.V. 1 mg Uniqueie Uniqueie for sedation Negin Kam RN 11:36:39 Fentanyl I.V. 50 Uniqueie Uniqueie for sedation mcg Negin Kam RN 11:47:06 Heparin Bolus I.V. 4000 Ector Barnett for verifi ed units Jody Kam RN anticoagulation with dr vera 11:47:40 Integrilin I.V. 7.9 Ector Barnett Per physician 2.1ml (Bolus 2mg/ml) ml Jody Kam RN wasted 12:00:14 Plavix P.O. 600 Ector Barnett for mg Jody Kam RN antiplatelet therapy Procedure Log Time Note 10:47:11 Informed consent obtained and on chart 10:47:16 Diagnostic Cath Status : Elective 10:47:35 Anibal Kam RN sent for patient. Start room use. 10:47:36 Time tracking: Regular hours 10:47:40 Plan of Care:Hemodynamics will remain stable., Cardiac rhythm will remain stable., Comfort level will be maintained., Respiratory function will remain adequate., Patient/ family verbilizes understanding of procedure., Procedure tolerated without complication., Recovers from procedure without complications.. 11:00:52 Patient received from Med II to [facility] 3 Alert and oriented. Tansferred to table in Supine position. 11:00:53 Warm blankets applied, and estela hugger turned on for patient comfort. 11:00:53 Correct patient and procedure confirmed by team. 11:00:54 ECG and BP/O2 sat monitors applied to patient. 11:07:17 Vital chart was started 11:07:30 Oxygen 2 l/min NC was administered by nAibal Kam RN; used for procedure; 11:07:39 Heparin Flush Bag (1000units/500ml NS) 2 bags added to field was administered by Anibal Kam RN; used for procedure; 11:07:50 Lidocaine 2% 20ml vial added to field was administered by Anibal Kam RN; used for procedure; 11:08:07 0.9% NaCl 100 ml/hr I.V. was administered by Anibal Kam RN; used for procedure; 11:13:17 Baseline sample Acquired. 11:13:25 Baseline sample Acquired. 11:13:32 Rhythm: sinus rhythm 11:13:35 Full Disclosure recording started 11:13:39 H&P Date Dictated: 03/11/2017 Within 30 days and on chart.. 11:13:41 Pre-procedure instructions explained to patient. 11:13:44 Family in waiting room. 11:13:46 Patient NPO since Midnight. 11:13:56 Is the patient allergic to Iodine/contrast media? No. 11:14:05 Is patient on blood thinner?No 11:14:14 Patient diabetic? Yes. 11:14:16 If diabetic: On Metformin? Yes 11:14:20 If on Metformin: Last Dose? 03/10/2017 11:14:32 Previous problem with sedation/anesthesia? No ? 11:14:41 Snore? No 11:14:46 Sleep apnea? Yes 11:15:00 Airway obstruction? No childhood asthma 11:15:05 Dentures? No ? 11:15:14 Patient pain scale 0/10 ?. 11:15:25 IV patent on arrival in left hand with 0.9% NaCl at [facility]. 11:17:22 Lab Result : BUN 17 mg/dl 11:17:22 Lab Result : CK-MB 2.5 ng/ml 11:17:22 Lab Result : Creatinine 1.1 mg/dl 11:17:22 Lab Result : Troponin l 0.017 ng/ml 11:17:22 Lab Result : Creatinine Kinase 135 l 11:17:22 Lab Result : Hemoglobin 13.8 g/dl 11:17:27 Lab results completed and on chart. 11:17:31 Right groin area was prepped with chlora-prep and draped in sterile fashion 11:17:47 tummy taped. 11:17:50 Alarms reviewed by R. N. 11:17:51 Sharps counted by scrub and verified by R.N. 11:19:05 Patient allergic to Other allergyLidocaine(can't tolerate in mouth) Pravastatin, Cetacine 11:19:18 Physician paged 11:28:00 Physician arrived 11:28:09 --------ALL STOP TIME OUT------ 11:28:12 Final Timeout: patient, procedure, and site verified with staff and physician. All members of the team are in agreement. 11:28:15 Right groin site verified by team. 11:28:19 Physical assessment completed. ASA score P 2 - A patient with mild systemic disease as per Ector Vera MD. 11::23 Sedation plan: IV Moderate Sedation Versed, Fentanyl 11::45 Versed 1 mg I.V. was administered by Anibal Kam RN; for sedation; 11::54 Fentanyl 50 mcg I.V. was administered by Anibal Kam RN; for sedation; 11::23 Use device set Femoral Dx 11:31:24 Acist Syringe opened to sterile field. 11:31:24 Bag Decanter opened to sterile field. 11:31:25 Medline Cath Pack opened to sterile field. 11:31:25 Terumo 5Fr [place] Sheath opened to sterile field. 11:31:26 St Christiano 260cm J .035 wire opened to sterile field. 11:31:27 Acist Hand Control opened to sterile field. 11:31:27 Acist Manifold opened to sterile field. 11:31:28 Diagnostic Infinity 5Fr Multipack catheter opened to sterile field. 11:31:28 Tegaderm 4 x 4 opened to sterile field. 11:31:32 Procedure started. 11:31:43 Local anesthetic to right femoral artery with Lidocaine 2% by Ector Vera MD.INITIAL ACCESS ONLY 11:31:55 A 5 Fr sheath was inserted into the Right Femoral artery 11:32:07 Versed 1 mg I.V. was administered by Anibal Kam RN; for sedation; 11:32:08 A Cordis 5Fr Pigtail Catheter (MP) was advanced over the wire and used for LV Angiography. 11:32:12 Fentanyl 50 mcg I.V. was administered by Anibal Kam RN; for sedation; 11:33:04 EF : 60 % 11:33:13 Catheter removed. 11:33:32 A Cordis 5Fr JL 4.0 Catheter (MP) was advanced over the wire and used for Left Coronary Angiography. 11:33:40 LCA angiography performed. 11:33:42 Catheter removed. 11:35:04 A Diagnostic Infinity 5Fr AR 2 MOD catheter was advanced over the wire and used for Right Coronary Angiography. 11:36:34 Versed 1 mg I.V. was administered by Anibal Kam RN; for sedation; 11:36:39 Fentanyl 50 mcg I.V. was administered by Anibal Kam RN; for sedation; 11:37:42 A Diagnostic Infinity 5Fr AR 2 MOD catheter was advanced over the wire and used for SVG Angiography. 11:37:50 SVG to Circ angiography performed. 11:38:41 Catheter removed. 11:38:49 A Cordis 5Fr 3DRC Catheter (MP) was advanced over the wire and used for Procedure. 11:39:23 DUMONT to LAD angiography performed. 11:40:22 Bilateral renal angiography performed. 11:41:09 Catheter removed. 11:41:22 A Diagnostic Infinity 5Fr AL 1 catheter was advanced over the wire and used for Procedure. 11:42:05 Catheter removed. 11:43:27 A Diagnostic Infinity 5Fr MPA-2 catheter was advanced over the wire and used for Procedure. 11:44:54 SVG to RCA angiography performed. 11:45:29 Catheter removed. 11:45:48 Terumo 6Fr [place] Sheath opened to sterile field. 11:45:49 Cantu Whisper J 300cm 0.014 guide wire opened to sterile field. 11:45:50 [facility] BasixCompak Inflation Kit opened to sterile field. 11:45:52 Proceeding to intervention. 11:46:06 Sheath upsized to a 6 Fr Short. 11:46:21 ACC PCI Site: dRCA has 80% stenosis. 11:47:06 Heparin Bolus 4000 units I.V. was administered by Anibal Kam RN; for anticoagulation; verified with dr vera 11:47:09 GuideWalltronic Launcher 6Fr MB 2 guide catheter opened to sterile field. 11:47:18 6 Fr MB2 guide catheter was inserted over the wire 11:47:25 Whisper wire advanced. 11:47:40 Integrilin (Bolus 2mg/ml) 7.9 ml I.V. was administered by Anibal Kam RN; Per physician; 2.1ml wasted 11:51:28 Guide catheter removed. 11:51:45 GuideWalltronic Launcher 6Fr MB 1 guide catheter opened to sterile field. 11:51:58 Street[employer] Choice PT Extra Support J 300cm .014 gu opened to sterile field. 11:52:10 6 Fr MB 1 guide catheter was inserted over the wire 11:52:18 choice PT wire advanced. 11:52:19 Wire advanced across lesion. 11:55:14 Inflation Number: 1 A Medtronic Resolute 2.5 X 14 stent was prepped and advanced across the Dist RCA. The stent was deployed at 13 HEMANTH for 0:08 (min:sec). 11:55:59 Wire removed. 11:56:00 Guide catheter removed. 11:56:07 Cordis 6Fr Exoseal opened to sterile field. 11:56:25 Sheath removed intact; hemostasis achieved with Exoseal to the Right Femoral artery. 11:56:29 Procedure ended.(Physican Out) 11:56:54 Fluoroscopy time 11.80 minutes. 11:57:34 Flurop Dose total: 578.9 11:57:34 Fluoroscopy dose: 578.9 mGy 11:57:42 Contrast amount:Isovue 300 152ml. 11:57:44 Sharps counted by scrub and verified by R.N. 11:57:49 Insertion/operative site no bleeding no hematoma. 11:57:54 Post-op/insertion site Right Femoral artery dressed using a 4 x 4 and Tegaderm. 11:57:58 Post Procedure Pulses reassessed and unchanged 11:58:07 Post-procedure physical assessment completed. ASA score P 2 - A patient with mild systemic disease as per Ector Vera MD. 11:58:12 Post procedure rhythm: unchanged. 11:58:16 Estimated blood loss: 10 ml 11:58:18 Post procedure instruction explained to patient.Patient verbalizes understanding. 11:59:08 Procedure type changed to Cath procedure, Diagnostic procedure, LHC, LHC w/Coronaries, PCI procedure, Coronary Stent Initial, Miscellaneous Procedures, Moderate Sedation up to 15 minutes, Peripheral Cath Diagnostic Procedure, Abd/Extremity, Renal, Bilat Renal Arteriogram 11:59:10 Procedure and supply charges have been captured, reviewed, submitted and are correct. 11:59:17 Procedure Complication : No complications 11:59:20 Vital chart was stopped 11:59:21 See physician's report for complete and final results. 11:59:23 Report given to Pre/Post Procedure Room. 11:59:31 Patient transfered to [facility] with Bed. 11:59:34 Procedure ended. 11:59:34 Full Disclosure recording stopped 11:59:50 End room use (Document Last) 12:00:14 Plavix 600 mg P.O. was administered by Anibal Kam RN; for antiplatelet therapy; 12:01:44 ACC-PCI Only Patient was given prescriptions, or instructed by Ector Vera MD to start/continue the following medications upon discharge: Plavix Intervention Summary Intervention Notes Time ActionType Lesion and Equipment Action# Pressure Duration Attributes Used 11:55:14 Place stent Dist RCA Medtronic 1 13 00:08 Resolute 2.5 X 14 stent Device Usage Item Name Manufacture Quantity Catalog Number Hospital Part Current Minim al Lot# / Charge Number Stock Stock Serial# Code Acist Acist 1 [id number] [id number] 078749 233581 20 Syringe Medical Systems Inc Bag Microtek 1 2002S 856699 07885 267698 5 Dectwidox Medical Inc. Medline Cardinal 1 [id number] 494384 67056 616054 5 Cath Pack Health Terumo 5Fr Terumo 1 [id number] 939517 444357 597205 [address] St Christiano 1 675897 963379 552593 188384 30 260cm J .035 wire Acist Hand Acist 1 12983 648786 149040 869062 5 NextPotential Medical Systems Inc Acist Acist 1 62500 802652 222374 811554 5 Telecom Transport Management Medical Systems Inc Diagnostic Cardinal 1 [id number] 344904 20247 149920 30 [facility] 5Fr Multipack catheter Tegaderm 4 3M 1 1626W 332472 593364 339137 5 x 4 Cordis 5Fr Cardinal 1 762164 5 Pigtail Health Catheter (MP) Cordis 5Fr Cardinal 1 502687 5 JL 4.0 Health Catheter (MP) Diagnostic Cardinal 1 [id number] 620450 295102 136051 20 [facility] 5Fr AR 2 MOD catheter Cordis 5Fr Cardinal 1 107293 5 3DRC Health Catheter (MP) Diagnostic Cardinal 1 [id number] 730093 252178 758408 15 [facility] 5Fr AL 1 catheter Diagnostic Cardinal 1 [id number] 678986 515345 418231 5 [facility] 5Fr MPA-2 catheter Terumo 6Fr Terumo 1 [id number] 996127 381590 723205 40 [place] Sheath Cantu Cantu 1 [id number] 631012 221783 066249 5 Whisper J Vascular 300cm 0.014 guide wire Merit Merit 1 [id number] 604650 957049 246226 15 BasixComlak Medical Inflation Kit Medtronic Medtronic 1 [id number] 798516 31988 565475 1 Launcher 6Fr MB 2 guide catheter Medtronic Medtronic 1 [id number] 544967 43975 485859 1 Launcher 6Fr MB 1 guide catheter [employer] [place] 1 [id number] 967950 765869 792924 5 Choice PT Scientific Extra Support J 300cm .014 gu Medtronic Medtronic 1 [id number] 499920 132694 7 [id number] Resolute 2.5 X 14 stent Cordis 6Fr Cardinal 1 EX600 192273 102523 409709 10 [facility] LapSpace Signature Audit Drumright Stage Time Signature Unsigned Intra-Procedure 03/11/2017 Smiley Koehler 12:03:21 PM RT(R) Signatures Monitor : Smiley Koehler Signature : RT Date : Time : [address] [place] [address]
[2017-03-10 15:30] LABS: BASOPHILS 0.4 % (0-2); HEMATOCRIT 40.3 % (36.0-48.0); HEMOGLOBIN 13.8 g/dL (12-16); MCH 32.5 pg (26.0-34.0); MCHC 34.2 g/dL (31.0-37.0); MONOCYTES 6.7 % (2-11); NEUTROPHILS 71.9 % (40-80); PLATELET COUNT 212 10x3/uL (130-400); RBC 4.24 10x6/uL (4.00-5.40); RDW 12.5 % (11.5-14.5); WBC 7.2 10x3/uL (4.8-10.8)
[2017-03-10 15:50] LABS: ALBUMIN 3.3 g/dL (3.4-5.0); ALKALINE PHOSPHATASE 102 U/L (46-116); ALT (SGPT) 22 U/L (10-68); BILIRUBIN - TOTAL 0.27 mg/dL (0.2-1.3); CALC OSMOLALITY 279 mosm/kg (275-300); CALCIUM 9.1 mg/dL (8.5-10.1); CARBON DIOXIDE 22.9 mmol/L (21.0-32.0); CHLORIDE - SERUM 104 mmol/L (98-107); CREATININE - SERUM 1.1 mg/dL (0.6-1.3); GLUCOSE 102 mg/dL (74-106); POTASSIUM - SERUM 3.6 mmol/L (3.5-5.1); PROTEIN - SERUM 6.9 g/dL (6.4-8.2); SODIUM 139 mmol/L (136-145); UREA NITROGEN 17 mg/dL (7-18); eGFR NON AFRICAN AMERICAN 53 mL/min (90-120)
[2017-03-10 16:24] LABS: CREATINE KINASE 135 UL (21-215); PRO BNP 652 pg/mL (0-125)
[2017-03-10 16:42] LABS: TROPONIN-I < 0.017 ng/mL (0.000-0.060)
[2017-03-10 16:43] LABS: CKMB 2.5 U/L (0.0-3.6)
[2017-03-10] MEDS ORDERED: AMOXICILLIN500 M1 PO (18:24)
[2017-03-10] MEDS ORDERED: BAYER CHEWABLE81 MG PO (18:24)
[2017-03-10] MEDS ORDERED: KLONOPIN0.5 MG PO (18:27)
[2017-03-10] MEDS ORDERED: IPRAT-ALBUT 0.5-3 ML UPD (18:33)
[2017-03-10] MEDS ORDERED: LISINOPRIL10 MG PO (18:33)
[2017-03-10] MEDS ORDERED: MECLIZINE HCL25 MG PO (18:34)
[2017-03-10] MEDS ORDERED: ULTRAM50 MG PO (18:39)
[2017-03-10 19:45] VITALS: BP 113/52
[2017-03-10 23:38] VITALS: BP 162/69
[2017-03-11 03:48] VITALS: BP 119/53
[2017-03-11 06:06] VITALS: Ht 167.6 cm; Wt 88.6 kg
[2017-03-11 08:19] VITALS: BP 125/68
[2017-03-11 09:48] LABS: BASOPHILS 0.2 % (0-2); EOSINOPHILS 1.3 % (0-7); HEMATOCRIT 40.3 % (36.0-48.0); HEMOGLOBIN 13.7 g/dL (12-16); MCH 32.7 pg (26.0-34.0); MCV 96.2 fL (80.0-100.0); MEAN PLATELET VOLUME 9.2 fL (7.4-10.4); MONOCYTES 8.8 % (2-11); NEUTROPHILS 63.7 % (40-80); PLATELET COUNT 195 10x3/uL (130-400); RBC 4.19 10x6/uL (4.00-5.40); RDW 12.7 % (11.5-14.5)
[2017-03-11 09:49] LABS: WBC 4.6 10x3/uL (4.8-10.8)
[2017-03-11 10:14] LABS: ANION GAP 12.4 mmol/L (8-16); CARBON DIOXIDE 24.5 mmol/L (21.0-32.0); POTASSIUM - SERUM 3.9 mmol/L (3.5-5.1)
[2017-03-11] MEDS ORDERED: NORVASC5 MG PO (14:12)
[2017-03-11] MEDS ORDERED: TOPROL XL50 MG PO (14:13)
[2017-03-11] MEDS ORDERED: PLAVIX75 MG PO (15:10)
[2017-03-11 16:05] VITALS: BP 126/70
--- NOTE | 2017-03-12 11:31 | OP ---
PATIENT NAME: ANGELES LEAL MEDICAL RECORD: [id number] :54 LOCATION:D.M2 D.2120 ADMISSION DATE:03/10/17 SURGEON: REMA BRITT MD DATE OF OPERATION: 03/11/2017 PROCEDURES: 1. PTCA stent RCA through patent vein graft. 2. Left heart catheterization. 3. Selective coronary angiography. 4. Vein graft angiography. 5. DUMONT angiography. 6. Left ventriculogram. INDICATION: Unstable angina. PROCEDURE IN DETAIL: After informed consent was obtained and after detailed explanation of risks, benefits as well as alternative therapies, the patient elected to proceed with angiogram and angioplasty. The right femoral area was prepped and draped in normal sterile fashion. The right femoral artery was cannulated via modified Seldinger technique with placement of 6-Belarusian sheath. All catheters exchanged through this sheath. FINDINGS: Left ventriculogram was performed in standard 30-degree JAUREGUI view, reveals good cardiac wall motion, ejection fraction 50%. SELECTIVE CORONARY ANGIOGRAPHY: 1. Left main showed no significant angiographic disease. 2. Left anterior descending is totally occluded. 3. Left circumflex is totally occluded. 4. Right coronary is totally occluded. 5. DUMONT to the LAD is widely patent. Distal LAD is widely patent. 6. Vein graft to the circumflex is widely patent. Distal circumflex is widely patent. 7. Vein graft to the right coronary is patent. Distal right coronary, however, has 90% stenosis at the site of the previously placed stent. PTCA STENT OF THE RCA THROUGH THE PATENT VEIN GRAFT: The stent used was a 2.5 x 15 mm Resolute. Result was 0% residual stenosis. OVERALL IMPRESSION: Successful percutaneous transluminal coronary angioplasty stent of the right coronary artery through the patent vein graft going from 90% initial stenosis to 0% residual. TRANSINT:[id number] Voice Confirmation ID: [id number] DOCUMENT ID: [id number] REMA BRITT MD at 1131 CC: [id number] DICTATION DATE: 03/11/17 1205 AIRCRAFT TOOL MAKER: 03/11/17 1605 DIS IN 03/11/17 [place] [address]
== END 2017-03-11 16:29 | disposition home or self-care (01) ==
LOC: D.ER 14:53 → D.M2 18:00 → OBSVTIME 03-11 12:01 → D.M2 03-11 16:29
PROVIDERS: Emergency Medicine; Internal Medicine Interventional Cardiology; ADMIT Family Medicine
DX: I25.110 Atherosclerotic heart disease of native coronary artery with unstable angina pectoris (principal); I10 Essential (primary) hypertension; Z95.5 Presence of coronary angioplasty implant and graft; Z95.1 Presence of aortocoronary bypass graft; Z87.891 Personal history of nicotine dependence; E11.9 Type 2 diabetes mellitus without complications; J44.9 Chronic obstructive pulmonary disease, unspecified; E78.5 Hyperlipidemia, unspecified
CPT/HCPCS: 93459; C9600

== ENCOUNTER → 2017-05-08 09:12 | Outpatient (CLI) | payer MEDICARE, OTHER ==
[~2017-05-08] VITALS: Ht 167.6 cm; Wt 91.8 kg
--- NOTE | ~2017-05-08 | HEMODYNAMI ---
PATIENT:ZITA LEAL MEDICAL RECORD: [id number] : 54 LOCATION:[facility] ADMISSION DATE: 05/08/17 Generatedon:05/08/201714:36 Patient name: ZITA LEAL Patient #: [id number] SSN: [id number] : 1950 Date of study: 05/08/2017 Page: Of Hemodynamic Procedure Report Patient Data Patient Demographics Procedure consent was obtained First Name: ZITA Gender: Female Last Name: MEL : 1950 Middle Initial: K Age: 67 year(s) Patient #: [id number] Race: SSN: [id number] Additional ID: [id number] Contact details [address]: [address] [place] [address] State: [place] City: [place] Zip code: [address] Past Medical History History of disease Date Diagnosis Comments CAD Allergies Allergen Reaction Date Comments Reported Other allergy 10/17/2015 LIDOCAINE PRAVACHOL CETACAINE BENZOCAINE Tetracycline 12/13/2016 Other allergy 12/13/2016 PRAVASTATIN, BENZOCAINE, BUTAMBEN Other allergy 12/13/2016 LIDOCAINE Other allergy 03/11/2017 Lidocaine(can't tolerate in mouth) Pravastatin, Cetacine Other allergy 05/08/2017 all cains, provachal, statins, Admission Admission Data Admission Date: 05/08/2017 Admission Time: 9:12 Lab Results Lab Result Date: 05/08/2017 Lab Result Time: 0:00 Biochemistry Name Units Result Min Max BUN mg/dl 20 --(----)*- 7 18 Creatinine mg/dl 1 --(--*-)-- 0.6 1.3 CBC Name Units Result Min Max Hemoglobin g/dl 12.8 -*(----)-- 13.5 17.5 Procedure Procedure Types Cath Procedure Diagnostic Procedure LHC LHC w/Coronaries w/Grafts MAURA Miscellaneous Procedures Moderate Sedation up to 30 minutes Procedure Description Procedure Date Procedure Date: 05/08/2017 Procedure Start Time: 13:50 Procedure End Time: 14:31 Procedure Staff Name Function Binh Truong MD Performing Physician Anibal Kam RN Nurse Shabbir Sorenson RT Monitor Laurent Sanches RT Scrub Danny Bryan MD Additional personnel Procedure Data Cath Procedure Fluoroscopy Diagnostic fluoroscopy Total fluoroscopy Time: 7.3 time: 7.3 min min Diagnostic fluoroscopy Total fluoroscopy dose: 369 dose: 369 mGy mGy Contrast Material Contrast Material Type Amount (ml) Isovue 300 147 Entry Location Entry Primary Successful Side Size Upsize Upsize Entry Closure Succes sful Closure Location (Fr) 1 (Fr) 2 (Fr) Remarks Device Remarks Femoral Right 5 Fr Exoseal artery Diagnostic catheters Device Type Used For End Catheter Placement Cordis 5Fr JL 4.0 Left Coronary Catheter (MP) Angiography Cordis 5Fr 3DRC Catheter Right Coronary (MP) Angiography Diagnostic Infinity 5Fr SVG Angiography MPA-2 catheter Cordis 5Fr Pigtail LV Angiography Catheter (MP) Procedure Complications No complications Procedure Medications Medication Administration Route Dosage Oxygen NC 2 l/min Refer to Anesthesia Notes for Sedation Medications 0.9% NaCl I.V. 100 ml/hr Heparin Flush Bag added to field 2 bags (1000units/500ml NS) Versed I.V. 1 mg Fentanyl I.V. 50 mcg Versed I.V. 1 mg Fentanyl I.V. 50 mcg Hemodynamics Rest HGB: 12.8 (g/dl) Heart Rate: 58 (bpm) Pressure Samples Time Site Value (mmHg) Purpose Heart Use Rate(bpm) 14:25 LV 120/25,31 EDP 52 Gradients Valve Time Site Site Mean SEP/DFP Peak To Heart Use 1 2 (mmHg) (sec/min) Peak Rate (mmHg) (bpm) Aortic 14:26 LV AO 50 Snapshots Pre Cath Intra NCS Post Cath Vital Signs Time Heart Resp SPO2 NIBP (mmHg) Rhythm Pain Sedation Rate (ipm) (%) Status Level (bpm) 13:39:01 56 16 99 161/80(136) NSR 0 (11) 10(A) , No pain 13:43:26 55 15 100 150/68(126) NSR 0 (11) 10(A) , No pain 13:47:58 53 15 96 119/62(98) NSR 0 (11) 9(A) , No pain 13:53:13 64 14 100 149/70(121) NSR 0 (11) 9(A) , No pain 14:04:07 60 15 100 153/72(119) NSR 0 (11) 9(A) , No pain 14:08:41 52 14 100 124/66(102) NSR 0 (11) 10(A) , No pain 14:13:46 52 17 100 128/63(103) NSR 0 (11) 9(A) , No pain 14:18:02 50 15 100 111/64(81) NSR 0 (11) 9(A) , No pain 14:22:18 52 16 100 101/63(87) NSR 0 (11) 9(A) , No pain 14:26:30 51 16 100 112/58(88) NSR 0 (11) 10(A) , No pain 14:30:42 53 7 100 123/68(97) NSR 0 (11) 10(A) , No pain Medications Time Medication Route Dose Verified Delivered Reason Notes Effec tiveness by by 13:35:12 Oxygen NC 2 Binh Buffie used for l/min [facility] Donavon Kam RN procedure MD 13:45:18 Refer to Binh Delgado Anesthesia Notes [facility] Donavon Bryan MD for Sedation MD Medications 14:09:01 0.9% NaCl I.V. 100 Binh Buffie Per ml/hr [facility] Donavon Kam RN physician 14:09:13 Heparin Flush added 2 Binh Binh used for Bag to bags DionneJeannie Truong procedure (1000units/500ml field MD ONOFRE NS) 14:09:20 Versed I.V. 1 mg Binh [address] for [facility] Donavon Kam RN sedation 14:09:36 Fentanyl I.V. 50 Binh Uniqueie for mcg [facility] Donavon Kam RN sedation 14:19:24 Versed I.V. 1 mg Binh Buffie for [facility] Donavon Kam RN sedation 14:19:29 Fentanyl I.V. 50 Binh [place]ie for mcg [facility] Donavon Kam RN sedation Procedure Log Time Note 13:15:03 Shabbir Sorenson RT(R) sent for patient. Start room use. 13:27:06 Time tracking: Regular hours 13:27:10 Plan of Care:Hemodynamics will remain stable., Cardiac rhythm will remain stable., Comfort level will be maintained., Respiratory function will remain adequate., Patient/ family verbilizes understanding of procedure., Procedure tolerated without complication., Recovers from procedure without complications.. 13:27:36 Josh Claudio Internal Grinding Machine Operator present for MAURA. 13:31:24 Patient arrived from Pre/Post Procedure Room to CCL 3. Patient remains on bed/stretcher for procedure. 13:31:27 Warm blankets applied, and estela hugger turned on for patient comfort. 13:31:28 Correct patient and procedure confirmed by team. 13:31:29 Signed procedure consent form obtained from patient. 13:31:29 ECG and BP/O2 sat monitors applied to patient. 13:35:12 Oxygen 2 l/min NC was administered by Anibal Kam RN; used for procedure; 13:37:41 Baseline sample Acquired. 13:37:41 Vital chart was started 13:37:44 Rhythm: sinus rhythm 13:37:49 Full Disclosure recording started 13:37:59 H&P Date Dictated: 05/06/2017 Within 30 days and on chart.. 13:38:00 Pre-procedure instructions explained to patient. 13:38:00 Pre-op teaching completed and patient verbalized understanding. 13:38:02 Family in patients room. 13:38:04 Patient NPO since Midnight. 13:38:57 Patient allergic to Other allergyall cains, provachal, statins, 13:38:59 Is the patient allergic to Iodine/contrast media? No. 13:39:11 Is patient on blood thinner?Yes 13:39:14 ACC The patient was administered the following blood thiners within the last 24 hours: ACCPlavix 13:39:55 Patient diabetic? Yes. 13:39:57 If diabetic: On Metformin? Yes 13:40:00 If on Metformin: Last Dose? 05/06/2017 13:40:02 ----Pre-sedation anethsthesia assessment.---- 13:40:04 Snore? Yes 13:40:08 Previous problem with sedation/anesthesia? No ? 13:40:12 Sleep apnea? No 13:40:13 Deviated septum? No 13:40:14 Opens mouth fully? Yes 13:40:15 Sticks out tongue? Yes 13:40:22 Airway obstruction? Yes asthma, 13:41:45 Dentures? No ? 13:41:52 Pre procedure: right dorsailis pedis pulse 1+ Palpable, but thready & weak; easily obliterated 13:41:56 Patient pain scale 0/10 ?. 13:42:04 IV patent on arrival in left hand with 0.9% NaCl at 10ml/hr. 13:42:44 Lab Result : BUN 20 mg/dl 13:42:44 Lab Result : Creatinine 1 mg/dl 13:42:44 Lab Result : Hemoglobin 12.8 g/dl 13:42:52 Lab results completed and on chart. 13:42:56 Alarms reviewed by R. N. 13:42:56 Sharps counted by scrub and verified by R.N. 13:43:07 DR BRYAN present and monitoring patient for TIVA. 13:43:40 --------ALL STOP TIME OUT------ 13:43:41 Final Timeout: patient, procedure, and site verified with staff and physician. All members of the team are in agreement. 13:43:46 Right groin site verified by team. 13:44:23 Physical assessment completed. ASA score P 2 - A patient with mild systemic disease as per Binh Truong MD. 13:44:26 Sedation plan: IV Moderate Sedation Propofol 13:45:18 Refer to Anesthesia Notes for Sedation Medications was administered by Danny Bryan MD; ; 13:50:07 Procedure started. 13:50:09 MAURA started. 13:56:12 MAURA completed. 13:57:05 Use device set Femoral Dx 13:57:06 Acist Syringe opened to sterile field. 13:57:06 Bag Decanter opened to sterile field. 13:57:07 Medline Cath Pack opened to sterile field. 13:57:07 Terumo 5Fr [place] Sheath opened to sterile field. 13:57:07 St Christiano 260cm J .035 wire opened to sterile field. 13:57:13 Acist Hand Control opened to sterile field. 13:57:13 Acist Manifold opened to sterile field. 13:57:13 Diagnostic Infinity 5Fr Multipack catheter opened to sterile field. 13:57:14 Tegaderm 4 x 4 opened to sterile field. 14:04:04 After MAURA completed, pt transferred to Cath table for procedure. 14:09:01 0.9% NaCl 100 ml/hr I.V. was administered by Anibal Kam RN; Per physician; 14:09:13 Heparin Flush Bag (1000units/500ml NS) 2 bags added to field was administered by Binh Truong MD; used for procedure; 14:09:20 Versed 1 mg I.V. was administered by Anibal Kam RN; for sedation; 14:09:36 Fentanyl 50 mcg I.V. was administered by Anibal Kam RN; for sedation; 14:10:50 Right groin site verified by team. 14:10:58 Alarms reviewed by R. N. 14:10:58 Sharps counted by scrub and verified by R.N. 14:11:02 Right groin area was prepped with chlora-prep and draped in sterile fashion 14:14:28 no local anesthetic used because of allergys 14:14:35 A 5 Fr sheath was inserted into the Right Femoral artery 14:14:49 A Cordis 5Fr JL 4.0 Catheter (MP) was advanced over the wire and used for Left Coronary Angiography. 14:14:55 Zero performed for pressure channel P1 14:15:23 LCA angiography performed. 14:15:53 Catheter removed. 14:16:07 A Cordis 5Fr 3DRC Catheter (MP) was advanced over the wire and used for Right Coronary Angiography. 14:16:20 RCA angiography performed. 14:16:59 SVG to Circ angiography performed. 14:17:53 Procedure type changed to Cath procedure, Diagnostic procedure, LHC, LHC w/Coronaries w/Grafts, MAURA, Miscellaneous Procedures, Moderate Sedation up to 30 minutes 14:18:16 DUMONT to LAD angiography performed. 14:19:04 Catheter removed. 14:19:24 Versed 1 mg I.V. was administered by Anibal Kam RN; for sedation; 14:19:29 Fentanyl 50 mcg I.V. was administered by Anibal Kam RN; for sedation; 14:19:29 A Diagnostic Infinity 5Fr MPA-2 catheter was advanced over the wire and used for SVG Angiography. 14:24:05 SVG to RCA angiography performed. 14:24:41 Catheter removed. 14:24:46 A Cordis 5Fr Pigtail Catheter (MP) was advanced over the wire and used for LV Angiography. 14:24:49 LV angiography performed. 14:24:55 LV gram done using JAUREGUI 14:24:57 LV hemodynamics recorded. 14:25:06 Injector settings: Ml/sec: 10, Volume: 20, 14:26:48 EF : 55 % 14:26:50 Catheter removed. 14:27:02 Sheath removed intact; hemostasis achieved with Exoseal to the Right Femoral artery. 14:27:54 Procedure ended.(Physican Out) 14:27:58 Contrast amount:Isovue 300 147ml. 14:28:10 Fluoroscopy time 07.30 minutes. 14:28:27 Flurop Dose total: 369 14:: Fluoroscopy dose: 369 mGy 14:28:31 Sharps counted by scrub and verified by R.N. 14:28:32 Insertion/operative site no bleeding no hematoma. 14:28:35 Post-op/insertion site Right Femoral artery dressed using a 4 x 4 and Tegaderm. 14:28:38 Post right femoral artery:stable 14:28:39 Post Procedure Pulses reassessed and unchanged 14:28:42 Post procedure: right dorsailis pedis pulse 2+ Normal; easily identifiable; not easily obliterated. 14:28:51 Post procedure rhythm: sinus rhythm 14:28:52 Post procedure instruction explained to patient.Patient verbalizes understanding. 14:29:14 Procedure and supply charges have been captured, reviewed, submitted and are correct. 14:30:36 Procedure Complication : No complications 14:31:14 Vital chart was stopped 14:31:14 See physician's report for complete and final results. 14:31:16 Report given to Pre/Post Procedure Room. 14:31:19 Patient transfered to Pre/Post Procedure Room with Stretcher. 14:31:32 Procedure ended. 14:31:32 Full Disclosure recording stopped 14:31:57 ACC-PCI Only Patient was given prescriptions, or instructed by Binh Truong MD to start/continue the following medications upon discharge: Plavix 14:31:57 End room use (Document Last) Device Usage Item Name Manufacture Quantity Catalog Hospital Part Current Minimal Lo t# / Number Charge Number Stock Stock Serial# Code Acist Acist 1 [id number] 150230 293475 20 Syringe Medical Tailored Fit Inc Bag Microtek 1 2002S 322763 61654 887487 5 [employer]. Medline Cardinal 1 [id number] 039534 98880 793711 5 Cath Pack Health Terumo 5Fr Terumo 1 [id number] 788446 739252 487947 [address] [facility] St Christiano 1 178091 937228 848936 990032 30 260cm J .035 wire Acist Hand Acist 1 56722 274148 885354 705979 5 Control Medical Systems Inc Acist Acist 1 92001 553137 172401 393978 5 Manifold Medical Systems Inc Diagnostic Cardinal 1 [id number] 911643 55376 711881 30 Infinity Health 5Fr Multipack catheter Tegaderm 4 3M 1 1626W 269548 515086 215810 5 x 4 Cordis 5Fr Cardinal 1 437874 5 JL 4.0 Health Catheter (MP) Cordis 5Fr Cardinal 1 925589 5 3DRC Health Catheter (MP) Diagnostic Cardinal 1 [id number] 640652 183090 304536 5 Infinity Health 5Fr MPA-2 catheter Cordis 5Fr Cardinal 1 342705 5 Pigtail Health Catheter (MP) Signature Audit Wilburn Stage Time Signature Unsigned Intra-Procedure 05/08/2017 Shabbir Sorenson 2:36:03 PM RT(R) Signatures Monitor : Shabbir Sorenson RT Signature : Date : Time : [facility] [address] [place] [address]
[~2017-05-08 09:12] MED LIST changes: +AMOXICILLIN500 M1 PO; +BAYER CHEWABLE81 MG PO; +IPRAT-ALBUT 0.5-3 ML UPD; +ISOSORBIDE MONO30 M1 PO; +KLONOPIN0.5 MG PO; +MECLIZINE HCL25 MG PO; +NORVASC5 MG PO; +PLAVIX75 MG PO; +TOPROL XL50 MG PO
[2017-05-08 10:18] VITALS: BP 111/69; Ht 167.6 cm; Wt 91.8 kg
[2017-05-08 10:45] LABS: BASOPHILS 0.5 % (0-2); EOSINOPHILS 1.6 % (0-7); HEMOGLOBIN 12.8 g/dL (12-16); IMMATURE GRANULOCYTES 0.2 % (0-5); LYMPHOCYTES 25.8 % (15-50); MCH 32.7 pg (26.0-34.0); MCHC 33.7 g/dL (31.0-37.0); MCV 97.2 fL (80.0-100.0); MEAN PLATELET VOLUME 9.4 fL (7.4-10.4); MONOCYTES 8.8 % (2-11); NEUTROPHILS 63.1 % (40-80); PLATELET COUNT 224 10x3/uL (130-400); RBC 3.91 10x6/uL (4.00-5.40); RDW 13.4 % (11.5-14.5); WBC 5.8 10x3/uL (4.8-10.8)
[2017-05-08 10:47] LABS: ANION GAP 12.8 mmol/L (8-16); CALCIUM 8.7 mg/dL (8.5-10.1); CARBON DIOXIDE 26.4 mmol/L (21.0-32.0); POTASSIUM - SERUM 4.2 mmol/L (3.5-5.1)
--- NOTE | 2017-05-08 14:45 | NUR ---
4110 RECIEVED TO ROOM VIA STRETCHER FROM MACHINE FINISHER WITH REPORTS OF A CLEAN CATH. 5 FR EXOSEAL R/GROIN CDI NO BLEEDING NO HEMATOMA NOTED. VSS WITH CHEST PAIN DENIED INSTRUCTED PATIENT TO KEEP HEAD FLAT ON PILLOW WITH RLE STRAIGHT
--- NOTE | 2017-05-08 14:58 | NUR ---
VSS WITH CHEST PAIN DENIED. 5 FR EXOSEAL R/GROIN CDI NO BLEEDING NO HEMATOMA NOTED.
--- NOTE | 2017-05-08 15:22 | NUR ---
R/GROIN CDI NO BLEEDING NO HEMATOMA NOTED. NAUSEA DENIED. VSS WITH FAMILY AT SIDE
--- NOTE | 2017-05-08 15:54 | NUR ---
REPOSITIONED TO SITTING WITH HOB UP 30 DEGREES. 5 FR EXOSEAL R/GROIN CDI NO BLEEDING NO HEMATOMA NOTED
--- NOTE | 2017-05-08 16:19 | NUR ---
PIV REMOVED WITH DRESSING APPLIED. PATIENT DENIED CHEST PAIN. R/GROIN CDI NO BLEEDING NO HEMATOMA NOTED UP TO GET DRESSED FOR DISCHARGE
--- NOTE | 2017-05-08 16:31 | NUR ---
VERBAL AND WRITTEN DISCHARGE GONE OVER WITH PATIENT AND FAMILY. R/GROIN REMAINS CDI NO BLEEDING NOTED. 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
--- NOTE | 2017-05-11 10:26 | OP ---
PATIENT NAME: ZITA LEAL MEDICAL RECORD: [id number] :54 LOCATION:D.CAT ADMISSION DATE: SURGEON: ANA MCINTOSH MD DATE OF OPERATION: 05/08/2017 PROCEDURES: Left heart catheterization, selective coronary angiography, right femoral approach. CATHETERS: A 5-Turkmen sheath, 5/4 left and right James, 5/4 pig. The procedure was well tolerated. The patient returned to the teran, sheath removed. ExoSeal device was placed. FINDINGS: Left ventriculography in the 30-degree JAUREGUI view: Normal wall motion, normal systolic function. CORONARY ANATOMY: LEFT MAIN: Left main fills for a short period of time and is totally occluded. There is no flow in the LAD and circumflex. RIGHT CORONARY ARTERY: Again, is totally occluded in its proximal portion. BYPASS GRAFTS: 1. DUMONT to the LAD widely patent throughout its course without evidence of post-anastomotic stenosis. 2. Saphenous vein graft circumflex is widely patent throughout its course without evidence of post-anastomotic stenosis. 3. Right coronary artery is widely patent throughout its course without evidence of post-anastomotic stenosis. IMPRESSION: Normal systolic function, widely patent grafts. No cardiac etiology of chest pain. TRANSINT:[id number] Voice Confirmation ID: [id number] DOCUMENT ID: [id number] ANA MCINTOSH MD at 1026 CC: [id number] DICTATION DATE: 05/08/17 1430 INDEPENDENT BEAUTY CONSULTANT: 05/08/17 2211 DEP CLI 05/08/17 [id number] [place] [address]
--- NOTE | 2017-05-11 10:26 | TEE ---
PATIENT:ZITA LEAL MEDICAL RECORD: [id number] LOCATION:D.[facility] AGE OF PATIENT: 67 ADMISSION DATE: 05/08/17 SEX: F REFERRING PHYSICIAN: INTERPRETING PHYSICIAN: ANA MCINTOSH MD TRANSESOPHAGEAL ECHOCARDIOGRAM MAURA CHARGE Y INDICATIONS: ANGINA/CAD/ ASSESS FOR VEGATATIONS DUE TO LESSIONS ON HANDS. PREMEDICATIONS: PATIENT'S RESPONSE PROCEDURE DOPPLER MEASUREMENTS: LVIT LA PA RA LVOT RVOT Asc. Ao AV Gradient Peak AV Mean AV Area MV Gradient Peak MV Mean MV Area INTERPRETATION: Doppler: 2-D: EF 55% PLUS NO VEGS NOTED COLOR FLOW DOPPLER TRACE MILD TR, TRACE MR TRACE AI (CENTRALIZED JET: NORMAL SALINE STUDY: MISCELLANOUS: DIAGNOSIS: PLAN: Pathology Laboratory Technologist:3 Dr. Truong Home Health Aide: Thaddeus FLORES COMMENTS: DATE OF SERVICE: 05/08/2017 Transesophageal Note PROCEDURE: After general sedation via anesthesia via TIVA, transesophageal Omniplane probe was placed into the distal esophagus and proximal stomach without difficulty. TRANSESOPHAGEAL ECHOCARDIOGRAM REPORT [id number] DE LEAL FINDINGS: LVH present. LV internal dimensions are normal. Wall motion is normal. EF is greater than 55%. Aortic valve is tricuspid with good valve excursion, mild centrally located jet of AI by color flow imaging. Left atrium is normal. Mitral valve appears mildly thickened with only mild MR. Left atrium appears normal. Left atrial appendage is well visualized with good contractility. Right-sided chambers appear grossly normal. No more than mild TR by color flow imaging. At the end of the procedure, the transesophageal Omniplane probe was turned posteriorly and this showed minimal atherosclerotic debris in the descending aorta. IMPRESSION: No focus for embolic event from a cardiovascular standpoint. TRANSINT:[id number] Voice Confirmation ID: [id number] DOCUMENT ID: [id number] at 1026 CC: [id number] DICTATION DATE: 05/08/17 1401 TRACER LATHE SET UP OPERATOR: 05/09/17 0251 DEP CLI 05/08/17 [facility] [address] [place] [address]
== END | disposition home or self-care (01) ==
LOC: D.CATH 09:12
PROVIDERS: Internal Medicine Interventional Cardiology
DX: R07.89 Other chest pain (principal); I25.10 Atherosclerotic heart disease of native coronary artery without angina pectoris; Z95.1 Presence of aortocoronary bypass graft; I34.0 Nonrheumatic mitral (valve) insufficiency; I07.1 Rheumatic tricuspid insufficiency; Z01.812 Encounter for preprocedural laboratory examination

== ENCOUNTER 2017-08-04 05:04 | Day surgery (SDC) | payer MEDICARE, MEDICAID ==
[2017-08-01 14:42] LABS: HEMATOCRIT 41.3 % (36.0-48.0); HEMOGLOBIN 13.7 g/dL (12-16); MCH 32.5 pg (26.0-34.0); MCHC 33.2 g/dL (31.0-37.0); MCV 98.1 fL (80.0-100.0); MEAN PLATELET VOLUME 9.1 fL (7.4-10.4); RBC 4.21 10x6/uL (4.00-5.40); RDW 12.4 % (11.5-14.5); WBC 10.1 10x3/uL (4.8-10.8)
[2017-08-01 14:51] LABS: ANION GAP 15.8 mmol/L (8-16); CALCIUM 9.3 mg/dL (8.5-10.1); CARBON DIOXIDE 24.7 mmol/L (21.0-32.0); CREATININE - SERUM 1.3 mg/dL (0.6-1.3); POTASSIUM - SERUM 5.5 mmol/L (3.5-5.1)
[2017-08-04 07:20] VITALS: BP 114/65; BMI 32.2
--- NOTE | 2017-08-04 09:58 | NUR ---
PRE OP O2 SAT WAS 91%
--- NOTE | 2017-08-04 12:44 | OP ---
PATIENT NAME: ANGELES LEAL MEDICAL RECORD: [id number] :54 LOCATION:D.OPS ADMISSION DATE: SURGEON: ARIANE HE MD DATE OF OPERATION: 08/04/2017 SURGEON: Ariane He MD PREOPERATIVE DIAGNOSES: 1. Temporal headaches. 2. Coronary artery disease. 3. Granulomatous pneumonia. 4. Diabetes. POSTOPERATIVE DIAGNOSES: 1. Temporal headaches. 2. Coronary artery disease. 3. Granulomatous pneumonia. 4. Diabetes. PROCEDURE PERFORMED: Ligation of the left temporal artery. ANESTHESIA: General. COMPLICATIONS: None. SPECIMENS: Three cm of left temporal artery. ESTIMATED BLOOD LOSS: 5 cc. Case was clean. OPERATIVE COURSE: After consent was obtained, the patient was taken to the operating room and placed in the supine position on the operating table. Next, general anesthesia was given via endotracheal intubation after the timeout was taken to confirm the correct patient and procedure. The left zoroastrianism was prepped and draped in typical sterile fashion. Then, 2 cc of local anesthetic were injected. Temporal artery was identified by Doppler. The skin was marked and incision was then made with a 15-blade scalpel. Dissection continued with sharp dissection until the left temporal artery was identified, approximately 4 cm of left temporal artery were mobilized proximal and distal. Hemostats were placed in the artery. The artery was transected with Metzenbaum scissors and sent for permanent pathology. The ends were then tied off with 3-0 silk suture. The wound was irrigated with normal saline. Hemostasis was obtained with electrocautery. The incision was closed with 3-0 Vicryl suture and Dermabond. At the end of procedure, all needle and instrument counts were correct. No complications occurred. The patient was extubated and transferred to the PACU in stable condition. TRANSINT:[id number] Voice Confirmation ID: [id number] DOCUMENT ID: [id number] OPERATIVE REPORT [id number] ANGELES LEAL ARIANE HE MD at 1244 CC: [id number] DICTATION DATE: 08/04/17 0938 THREAD CUTTER TENDER: 08/04/17 [address] [place] [address]
== END 2017-08-04 11:24 | disposition home or self-care (01) ==
LOC: D.PAN → D.OPS 05:04 → D.PAN 10:45 → D.OPS 10:45
PROVIDERS: Anesthesiology
DX: G44.1 Vascular headache, not elsewhere classified (principal); I25.10 Atherosclerotic heart disease of native coronary artery without angina pectoris; J18.8 Other pneumonia, unspecified organism; E11.9 Type 2 diabetes mellitus without complications; Z01.812 Encounter for preprocedural laboratory examination

== ENCOUNTER 2017-09-05 11:24 | Inpatient (IN) | payer MEDICARE, OTHER ==
[~2017-09-05] VITALS: Ht 165.1 cm; Wt 91.2 kg
[2017-09-05 13:45] LABS: HEMATOCRIT 33.3 % (36.0-48.0); HEMOGLOBIN 10.8 g/dL (12-16); MCHC 32.4 g/dL (31.0-37.0); MCV 95.7 fL (80.0-100.0); MEAN PLATELET VOLUME 8.9 fL (7.4-10.4); PLATELET COUNT 265 10x3/uL (130-400); RBC 3.48 10x6/uL (4.00-5.40); RDW 12.8 % (11.5-14.5); WBC 21.1 10x3/uL (4.8-10.8)
[2017-09-05 13:51] LABS: ALBUMIN 2.6 g/dL (3.4-5.0); ANION GAP 16.7 mmol/L (8-16); BILIRUBIN - TOTAL 0.5 mg/dL (0.2-1.3); CALCIUM 9.1 mg/dL (8.5-10.1); CARBON DIOXIDE 22.3 mmol/L (21.0-32.0); CREATININE - SERUM 1.4 mg/dL (0.6-1.3); PROTEIN - SERUM 6.8 g/dL (6.4-8.2)
[2017-09-05 14:29] LABS: LYMPHOCYTES 5 % (15-50); MONOCYTES 1 % (2-11); NEUTROPHILS 93 % (40-80); PLATELET ESTIMATE NORMAL
--- NOTE | 2017-09-05 15:00 | NUR ---
RECEIVED TO ROOM 2207 VIA WC FROM ER. A/O X3. UP TO BR WITH SBA. VOIDED WITHOUT DIFFICULTY, CLEAR YELLOW URINE. SKIN IS INTACT WITHOUT REDNESS EXCEPT WOUND TO 3RD TOE ON RIGHT FOOT.
[2017-09-05 15:12] VITALS: Ht 165.1 cm; Wt 91.2 kg
[2017-09-05 15:27] VITALS: BP 123/61
[2017-09-05] MEDS ORDERED: NITROSTAT0.4 MG SL (15:48)
[2017-09-05] MEDS ORDERED: PREDNISONE20 MG PO (15:49)
[2017-09-05] MEDS ORDERED: ADVAIR 250/501 DISK INH (15:50)
[2017-09-05] MEDS ORDERED: PROAIR HFA8.5 GM INH (15:51)
--- NOTE | 2017-09-05 19:00 | NUR ---
REPORT RECEIVED AND CARE OF PT ASSUMED. PT LYING IN SEMI BROOKS'S POSITION SLEEPING WITH UNLABORED BREATHING. WILL MONITOR FOR NEEDS.
[2017-09-05 20:00] VITALS: BP 114/60
[2017-09-06] VITALS: BP 131/67
--- NOTE | 2017-09-06 01:21 | NUR ---
PT SLEEPING IN SEMI BROOKS'S POSITION WITH EASY RESPIRATIONS. IV PATENT. WILL CONTINUE TO MONITOR FOR NEEDS.
[2017-09-06 04:00] VITALS: BP 128/77
[2017-09-06 04:33] LABS: BASOPHILS 0.1 % (0-2); EOSINOPHILS 0.2 % (0-7); HEMATOCRIT 36.7 % (36.0-48.0); HEMOGLOBIN 11.8 g/dL (12-16); IMMATURE GRANULOCYTES 0.3 % (0-5); LYMPHOCYTES 10.2 % (15-50); MCH 30.8 pg (26.0-34.0); MCHC 32.2 g/dL (31.0-37.0); MCV 95.8 fL (80.0-100.0); MEAN PLATELET VOLUME 8.8 fL (7.4-10.4); MONOCYTES 7.4 % (2-11); NEUTROPHILS 81.8 % (40-80); PLATELET COUNT 281 10x3/uL (130-400); RBC 3.83 10x6/uL (4.00-5.40); RDW 12.7 % (11.5-14.5); WBC 16.2 10x3/uL (4.8-10.8)
[2017-09-06 04:43] LABS: ANION GAP 15.7 mmol/L (8-16); CALCIUM 8.9 mg/dL (8.5-10.1); CARBON DIOXIDE 23.2 mmol/L (21.0-32.0); CREATININE - SERUM 1.3 mg/dL (0.6-1.3)
[2017-09-06 04:47] LABS: POTASSIUM - SERUM 3.9 mmol/L (3.5-5.1)
--- NOTE | 2017-09-06 07:45 | NUR ---
PT AOX4 RESP EVEN AND NONLABORED PT DENIES NEEDS AT THIS TIME IV TO RIGHT HAND PATENT AND INTACT AT THIS TIME SRX2 BED AT LOWEST SETTING CALL LIGHT WITHIN REACH WILL CONTINUE TO MONITOR
[2017-09-06 08:50] VITALS: BP 124/72
[2017-09-06 12:55] VITALS: BP 152/74
[2017-09-06 14:27] VITALS: BP 107/53
--- NOTE | 2017-09-06 14:32 | NUR ---
PT AOX4 HERE FROM RECOVERY DENIES PAIN AT THIS TIME SRX2 BED AT LOWEST SETTING CALL LIGHT WITHIN REACH WILL CONTINUE TO MONITOR
[2017-09-06 20:00] VITALS: BP 137/63
[2017-09-07] VITALS: BP 120/65
[2017-09-07 04:00] VITALS: BP 148/69
[2017-09-07 05:52] LABS: BASOPHILS 0.2 % (0-2); EOSINOPHILS 0.5 % (0-7); IMMATURE GRANULOCYTES 0.3 % (0-5); LYMPHOCYTES 11.9 % (15-50); MCHC 32.1 g/dL (31.0-37.0); MCV 96.7 fL (80.0-100.0); MEAN PLATELET VOLUME 8.8 fL (7.4-10.4); MONOCYTES 9.6 % (2-11); NEUTROPHILS 77.5 % (40-80); PLATELET COUNT 240 10x3/uL (130-400); RDW 12.8 % (11.5-14.5)
[2017-09-07 05:53] LABS: HEMOGLOBIN 9.3 g/dL (12-16); WBC 9.6 10x3/uL (4.8-10.8)
[2017-09-07 06:21] LABS: ANION GAP 10.9 mmol/L (8-16); CALCIUM 8.4 mg/dL (8.5-10.1); CARBON DIOXIDE 25.4 mmol/L (21.0-32.0); CREATININE - SERUM 1.1 mg/dL (0.6-1.3); POTASSIUM - SERUM 4.3 mmol/L (3.5-5.1)
--- NOTE | 2017-09-07 07:58 | NUR ---
PT AOX4 RESP EVEN AND NONLABORED PT DENIES NEEDS AT THIS TIME IV TO RIGHT FOREARM PATENT AND INTACT AT THIS TIME SRX2 BED AT LOWEST SETTING CALL LIGHT WITHIN REACH WILL CONTINUE TO MONITOR
[2017-09-07 08:42] VITALS: BP 130/70
--- NOTE | 2017-09-07 19:00 | NUR ---
REPORT RECEIVED AND CARE OF PT ASSUMED. PT LYING IN HIGH BROOKS'S POSITION WITH EYES CLOSED AND UNLABORED BREATHING. IV IN RIGHT FA PATENT WITH NS INFUSING AT 150 ML / HR. TELEMETRY IN PLACE AND READING 66 SR AT THIS ASSESSMENT. DRESSING ON RIGHT FOOT CLEAN AND DRY. WILL MONITOR CLOSLEY FOR NEEDS.
--- NOTE | 2017-09-07 19:18 | OP ---
PATIENT NAME: ANGELES LEAL MEDICAL RECORD: [id number] :54 LOCATION:D.MS [id number] ADMISSION DATE:09/05/17 SURGEON: JACQUELYN MATHEW DO DATE OF OPERATION: 09/06/2017 PROCEDURE PERFORMED: Right third toe amputation. PREOPERATIVE DIAGNOSIS: Right third toe wet gangrene. POSTOPERATIVE DIAGNOSIS: Right third toe wet gangrene. INDICATIONS: Ms. 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 She has had a fourth toe amputation for infection in the third toe approximately a week ago. She started to get redness and swelling in the third toe, she noticed and washed for about a week and came to the ER. In the ER, it was seen that she had an infection, it was red at that point. She was given IV clindamycin in the ER, and then switched to vancomycin and Zosyn on the floor. I was asked to see the patient. Once I saw the patient, said we would see with IV antibiotics. Said she had 24 hours of it and did not improve. In fact, the necrotic area of the third toe increased and she started to have purulent drainage. Once this was seen, we decided to do a third toe amputation. The patient was consented for such. SURGEON: Jacquelyn Mathew DO BLOOD LOSS: Minimal. TOURNIQUET: There was no tourniquet. COMPLICATIONS: None. DESCRIPTION OF PROCEDURE: The patient was taken to the operative suite, laid in supine position. The right foot was prepped with Betadine and then draped. A timeout was performed, it was agreed to correct side, site, and patient. Once this was done, an elliptical incision was made around the third toe and full thickness flaps and incision were made and an elliptical incision around the toe. Purulence was encountered upon making an incision in the third toe itself. The proximal and distal phalanx and the toe was removed at the MTP joint and then the third metatarsal was rongeured back to remove the cartilage off the third metatarsal. The wound was thoroughly irrigated and any or necrotic or purulent tissue was removed with a rongeur. Once this was done and thoroughly irrigated, the wound was then closed in a modified Donati fashion with 2-0 Prolene and with horizontal mattresses with a 3-0 nylon closure and then a Xeroform, 4 x 4's, Kerlix were then placed on the foot, and an Herson wrap was placed over that. The patient was awakened and taken to recovery in stable condition. TRANSINT:[id number] Voice Confirmation ID: [id number] DOCUMENT ID: [id number] OPERATIVE REPORT [id number] ANGELES LEAL MICHAEL D, DO at 1918 CC: [id number] DICTATION DATE: 09/06/17 1332 MARINE ELECTRONICS TECHNICIAN: 09/06/17 1819 ADM IN [facility] [address] [id number]
[2017-09-07 20:00] VITALS: BP 102/52
--- NOTE | 2017-09-07 20:15 | NUR ---
RE-WRAPPED NEW ALLYSON BANDAGE ON RIGHT FOOT, OTHER WAS SOILED WITH BLOOD AND HAD COME LOOSE. ELEVATED FOOT ON PILLOW. WILL CONTINUE TO MONITOR FOR NEEDS.
--- NOTE | 2017-09-07 20:21 | NUR ---
HS MEDICATIONS GIVEN TO INCLUDE NORCO PO PER PT REQUEST FOR PAIN. WILL MONITOR FOR EFFECTIVENESS. SIDE RAILS UP X2 FOR SAFETY.
[2017-09-08] VITALS: BP 99/55
--- NOTE | 2017-09-08 02:29 | NUR ---
PT RESTING QUIETLY IN HIGH BROOKS'S POSITION WITH EYES CLOSED AND UNLABORED BREATHING. WILL CONTINUE TO MONITOR FOR NEEDS. CALL LIGHT WITHIN REACH.
[2017-09-08 04:00] VITALS: BP 114/58
[2017-09-08 05:01] LABS: BASOPHILS 0.3 % (0-2); EOSINOPHILS 1.9 % (0-7); HEMATOCRIT 28.7 % (36.0-48.0); HEMOGLOBIN 9.1 g/dL (12-16); IMMATURE GRANULOCYTES 0.4 % (0-5); LYMPHOCYTES 14.6 % (15-50); MCH 30.4 pg (26.0-34.0); MCHC 31.7 g/dL (31.0-37.0); MEAN PLATELET VOLUME 8.8 fL (7.4-10.4); MONOCYTES 10.2 % (2-11); NEUTROPHILS 72.6 % (40-80); PLATELET COUNT 215 10x3/uL (130-400); RBC 2.99 10x6/uL (4.00-5.40); RDW 12.8 % (11.5-14.5); WBC 7.4 10x3/uL (4.8-10.8)
[2017-09-08 05:25] LABS: ALBUMIN 2.1 g/dL (3.4-5.0); ANION GAP 14.7 mmol/L (8-16); BILIRUBIN - TOTAL 0.4 mg/dL (0.2-1.3); CALCIUM 8.3 mg/dL (8.5-10.1); CARBON DIOXIDE 22.2 mmol/L (21.0-32.0); CREATININE - SERUM 1.2 mg/dL (0.6-1.3); POTASSIUM - SERUM 3.9 mmol/L (3.5-5.1); PROTEIN - SERUM 5.9 g/dL (6.4-8.2)
--- NOTE | 2017-09-08 05:55 | NUR ---
BLOOD SUGAR 157 THIS AM...NO COVERAGE DUE TO TIME TILL BREAKFAST. WILL CONTINUE TO MONITOR FOR NEEDS.
--- NOTE | 2017-09-08 07:00 | NUR ---
REPORT RECIEVED ASSUMED CARE. PATIENT IN BED WITH IV INTACT. NO COMPLAINTS AT THIS TIME. CALL LIGHT WITHIN REACH.
[2017-09-08 07:39] VITALS: BP 94/49
--- NOTE | 2017-09-08 09:42 | NUR ---
Patient Name: ANGELES LEAL Admission Status: ER Accout number: [id number] Admission Date: 09-05-2017 : 1950 Admission Diagnosis: Attending: ROGER RIVERA Current LOS: 3 Anticipated DC Date: Planned Disposition: Home with Home Health Primary Insurance: MEDICARE A & B Discharge Planning Comments: CM met with patient to assess discharge planning needs. Patient lived independently at home where she plans to return. She stated that her nephew, Len Murray will be the one to drive her home. She does not have any stairs to enter in her home & stated that she is safe to return home. Patient is blind. She has a Walker, WC, Potty chair, hospital bed, home o2, cane. She stated that she is current with [facility]. Patient denies any needs from CM at this time. Cm will continue to follow and assist with discharge planning needs as needed. PCP: Rodney Loredo;melinda [facility] Len Murray (nephew) Dry Pan Charger: Rut Cannon * Is the patient Alert and Oriented? Yes 0 * How many steps to enter\exit or inside your home? 0 0 * PCP Rodney 0 * Pharm[facility] 0 * Preadmission Environment Home Alone 0 * ADLs Partial Dependent 0 * Partial ADLs (Assistance needed) Medication Management 0 * Equipment Bedside Commode Cane Elevated Toliet Seat Glucometer Oxygen Rolling Walker Shower Chair Tub Bench Walker Wheelchair 0 * List name and contact numbers for known caregivers / representatives who currently or will assist patient after discharge: Len Murray 0 * Community resources currently utilized Home Health 0 * Please name any agencies selected above. [facility] 0 * Additional services required to return to the preadmission environment? No 0 * Can the patient safely return to the preadmission environment? Yes 0 * Has this patient been hospitalized within the prior 30 days at any hospital? No 0 Grand Total: 0
[2017-09-08] MEDS ORDERED: FLORAJEN3 CAPS460 MG PO (10:25)
[2017-09-08] MEDS ORDERED: DOXYCYCLINE HY100 M2 PO (10:26)
[2017-09-08] MEDS ORDERED: HYDROCODON-ACE1 EAC7 PO (10:27)
--- NOTE | 2017-09-08 11:18 | NUR ---
Ordered Vancomycin trough on 09-09 at 0400.
--- NOTE | 2017-09-08 13:58 | NUR ---
PATIENT RECIEVED DISCHARGE INSTRUCTIONS. VERBALIZED UNDERSTANDING. NO COMPLAINTS AT THIS TIME. CALL LIGHT WITHIN REACH.
--- NOTE | 2017-09-08 14:01 | NUR ---
SPOKE WITH DR. MATHEW ABOUT DRESSING CHANGES. STATED CHANGES COULD BE EVERY OTHER DAY, JUST TO KEEP INCISION CLEAN AND DRY. WROTE ON PATIENT DISCHARGE INSTRUCTIONS FOR HOME HEALTH.
--- NOTE | 2017-09-08 14:38 | NUR ---
IV REMOVED WITH CATH TIP INTACT. DRESSING TO FOOT CLEAN AND DRY. CHANGED EARLIER BY DR. MATHEW.
== END 2017-09-08 14:39 | disposition home health service (06) | DRG 256 ==
LOC: D.ER 11:24 → D.MS 13:59
PROVIDERS: Family Medicine; Orthopaedic Surgery; Physician Assistant; ADMIT Family Medicine Adult Medicine
PROC: 0Y6T0Z0 Detachment at Right 3rd Toe, Complete, Open Approach (ICD-10-PCS; principal; 2017-09-06 11:30)
DX: E11.52 Type 2 diabetes mellitus with diabetic peripheral angiopathy with gangrene (principal); I96 Gangrene, not elsewhere classified; E11.65 Type 2 diabetes mellitus with hyperglycemia; Z79.4 Long term (current) use of insulin; E11.40 Type 2 diabetes mellitus with diabetic neuropathy, unspecified; E78.5 Hyperlipidemia, unspecified; I25.10 Atherosclerotic heart disease of native coronary artery without angina pectoris; J44.9 Chronic obstructive pulmonary disease, unspecified; Z95.1 Presence of aortocoronary bypass graft

== ENCOUNTER 2018-02-11 09:15 | Outpatient (CLI) | payer MEDICARE, OTHER ==
[~2018-02-11] VITALS: Ht 165.1 cm; Wt 90.9 kg
--- NOTE | ~2018-02-11 | OP ---
PATIENT NAME: ANGELES LEAL MEDICAL RECORD: [id number] :52 LOCATION:D.CAT ADMISSION DATE: SURGEON: ANA MCINTOSH MD DATE OF OPERATION: 02/11/2018 PROCEDURE: Left heart catheterization, selective coronary angiography, right femoral artery approach. CATHETERS: A 5-Urdu sheath, 5/4 left and right James, 5/4 pig as well as multipurpose catheter. The procedure was well tolerated. The patient returned to teran and sheath removed. ExoSeal device placed. FINDINGS: Left ventriculography in 30 degrees JAUREGUI view: Normal wall motion, normal systolic function. CORONARY ANATOMY: LEFT MAIN: Left main is free of disease. LAD: Fills for a short period of time, is totally occluded and can be seen filling competitive flow via the DUMONT. CIRCUMFLEX: Fills for a short period of time and is totally occluded. RIGHT CORONARY ARTERY: 1. Mid portion is totally occluded. 2. Saphenous vein graft to the right is widely patent throughout its course without evidence of post-anastomotic stenosis. 3. Saphenous vein graft to the circumflex, widely patent throughout its course without evidence of post-anastomotic stenosis. 4. DUMONT to LAD widely patent throughout its course, no evidence of post-anastomotic stenosis. TRANSINT:[id number] Voice Confirmation ID: [id number] DOCUMENT ID: [id number] ANA MCINTOSH MD at 0804 CC: [id number] DICTATION DATE: 02/11/18 1454 CLIENT SERVICES SPECIALIST: 02/11/18 1534 DEP CLI 02/11/18 [address] [place] [id number]
--- NOTE | ~2018-02-11 | HEMODYNAMI ---
PATIENT:ANGELES LEAL MEDICAL RECORD: [id number] : 54 LOCATION:MARTHA ADMISSION DATE: 02/11/18 Generatedon:02/11/201814:56 Patient name: ANGELES LEAL Patient #: [id number] SSN: [id number] : 1950 Date of study: 02/11/2018 Page: Of Hemodynamic Procedure Report Patient Data Patient Demographics Procedure consent was obtained First Name: ANGELES Gender: Female Last Name: MEL : 1950 Middle Initial: K Age: 67 year(s) Patient #: [id number] Race: SSN: [id number] Additional ID: [id number] Contact details Address: [address] [place] [address] [place] State: [place] City: [place] Zip code: [address] Past Medical History History of disease Date Diagnosis Comments CAD Allergies Allergen Reaction Date Comments Reported Other allergy 10/17/2015 LIDOCAINE PRAVACHOL CETACAINE BENZOCAINE Tetracycline 12/13/2016 Other allergy 12/13/2016 PRAVASTATIN, BENZOCAINE, BUTAMBEN Other allergy 12/13/2016 LIDOCAINE Other allergy 03/11/2017 Lidocaine(can't tolerate in mouth) Pravastatin, Cetacine Other allergy 05/08/2017 all cains, provachal, statins, Other allergy 02/11/2018 Blessing, Statins Admission Admission Data Admission Date: 02/11/2018 Admission Time: 9:15 Lab Results Lab Result Date: 02/11/2018 Lab Result Time: 11:00 Biochemistry Name Units Result Min Max BUN mg/dl 24 --(----)-* 7 18 Creatinine mg/dl 1 --(--*-)-- 0.6 1.3 CBC Name Units Result Min Max Hematocrit % 32.8 *-(----)-- 42 54 Hemoglobin g/dl 10.1 *-(----)-- 13.5 17.5 Procedure Procedure Types Cath Procedure Diagnostic Procedure [facility] w/Coronaries w/Grafts Procedure Description Procedure Date Procedure Date: 02/11/2018 Procedure Start Time: 14:42 Procedure End Time: 14:52 Procedure Staff Name Function Binh Stewart MD Performing Physician Evgeny Salmeron RT Monitor Alphonso De Jesus RN Nurse Charlette Yoo RT Scrub Procedure Data Cath Procedure Fluoroscopy Diagnostic fluoroscopy Total fluoroscopy Time: 2.2 time: 2.2 min min Diagnostic fluoroscopy Total fluoroscopy dose: 484 dose: 484 mGy mGy Contrast Material Contrast Material Type Amount (ml) Isovue 300 71 Entry Location Entry Primary Successful Side Size Upsize Upsize Entry Closure Succes sful Closure Location (Fr) 1 (Fr) 2 (Fr) Remarks Device Remarks Femoral Right 5 Fr Exoseal artery Estimated blood loss: 5 ml Diagnostic catheters Device Type Used For End Catheter Placement MULTIPACK JL 4.0 5Fr Procedure catheter MULTIPACK 3DRC 5Fr Procedure catheter MULTIPACK Pigtail 5 Fr Procedure catheter DIAGNOSTIC MPA-2 5Fr Procedure catheter ([id number]) Procedure Complications No complications Procedure Medications Medication Administration Route Dosage Oxygen etCO2 Nasal cannula 2 l/min Heparin Flush Bag added to field 2 bags (1000units/500ml NS) 0.9% NaCl I.V. 100 ml/hr Fentanyl I.V. 50 mcg Versed I.V. 1 mg Fentanyl I.V. 50 mcg Versed I.V. 1 mg Hemodynamics Rest HGB: 10.1 (g/dl) Heart Rate: 67 (bpm) Pressure Samples Time Site Value (mmHg) Purpose Heart Use Rate(bpm) 14:47 LV 181/33,21 Snapshot 96 14:48 AO 170/80(117) Pullback 61 14:48 LV 170/13,22 Pullback 61 Gradients Valve Time Site 1 Site 2 Mean SEP/DFP Peak To Heart Use (mmHg) (sec/min) Peak Rate (mmHg) (bpm) Aortic 14:48 LV AO 16 14 0 61 170/13,22 170/80(117) Calculations Valve P-P Mean Valve Index Valve Source Name Gradient Area Flow (cm2) Aortic 0 16 0 16 Snapshots Pre Cath Intra NCS Post Cath Vital Signs Time Heart Resp SPO2 etCO2 NIBP (mmHg) Rhythm Pain Sedation Rate (ipm) (%) (mmHg) Status Level (bpm) 14:00:55 64 17 97 183/94(150) NSR 0 (11) 10(A) , No pain 14:05:46 66 17 94 40.6 190/96(149) NSR 0 (11) 10(A) , No pain 14:10:39 61 17 94 42.8 168/86(133) NSR 0 (11) 10(A) , No pain 14:15:23 59 17 100 42.1 150/81(120) NSR 0 (11) 10(A) , No pain 14:20:47 59 17 99 39.8 128/83(111) NSR 0 (11) 10(A) , No pain 14:25:30 58 16 100 39.8 124/75(98) NSR 0 (11) 10(A) , No pain 14:30:57 59 16 100 39.8 149/83(110) NSR 0 (11) 10(A) , No pain 14:35:44 61 16 99 40.5 140/93(123) NSR 0 (11) 10(A) , No pain 14:40:27 61 16 99 39.8 130/84(108) NSR 0 (11) 10(A) , No pain 14:45:56 61 17 100 40.5 169/86(118) NSR 0 (11) 9(A) , No pain 14:52:42 63 15 100 39 182/85(140) NSR 0 (11) 9(A) , No pain Medications Time Medication Route Dose Verified Delivered Reason Notes Effe ctiveness by by 14:00:14 Oxygen etCO2 2 Binh Werner Per Nasal l/min St Donavon De Jesus RN physician cannula 14:00:22 Heparin Flush added 2 Binh Werner used for Bag to bags St Donavon De Jesus RN procedure (1000units/500ml field ONOFRE NS) 14:00:31 0.9% NaCl I.V. 100 Binh Werner Per ml/hr St Donavon De Jesus RN physician 14:41:07 Fentanyl I.V. 50 Binh Werner for [facility] Donavon De Jesus RN sedation 14:41:14 Versed I.V. 1 mg Binh Werner for [facility] Donavon De Jesus RN sedation 14:44:38 Fentanyl I.V. 50 Binh Werner for [facility] Donavon De Jesus RN sedation 14:44:41 Versed I.V. 1 mg Binh Werner for [facility] Donavon De Jesus RN sedation Procedure Log Time Note 13:45: Evgeny Salmeron RT(R) sent for patient. Start room use. : Time tracking: Regular hours (M-F 7:00 - 5:00) 13:45:30 Plan of Care:Hemodynamics will remain stable., Cardiac rhythm will remain stable., Comfort level will be maintained., Respiratory function will remain adequate., Patient/ family verbilizes understanding of procedure., Procedure tolerated without complication., Recovers from procedure without complications.. 13:51:56 Patient received from Pre/Post Procedure Room to CCL 1 Alert and oriented. Tansferred to table in Supine position. 13:51:57 Warm blankets applied, and estela hugger turned on for patient comfort. 13:51:58 Correct patient and procedure confirmed by team. 13:51:59 Signed procedure consent form obtained from patient. 13:52:00 ECG and BP/O2 sat monitors applied to patient. 13:52:01 Full Disclosure recording started 13:59:54 Vital chart was started 14:00:14 Oxygen 2 l/min etCO2 Nasal cannula was administered by Alphonso De Jesus RN; Per physician; 14:00:22 Heparin Flush Bag (1000units/500ml NS) 2 bags added to field was administered by Alphonso De Jesus RN; used for procedure; 14:00:31 0.9% NaCl 100 ml/hr I.V. was administered by Alphonso De Jesus RN; Per physician; 14:04:00 Baseline sample Acquired. 14:04:13 Rhythm: sinus rhythm 14:09:30 H&P Date Dictated: 02/11/2018 New H&P dictated by physician.. 14:09:32 Pre-procedure instructions explained to patient. 14:09:33 Pre-op teaching completed and patient verbalized understanding. 14:09:35 Family unavailable. 14:09:36 Patient NPO since Midnight. 14:09:51 Patient allergic to Other allergyCaines, Statins 14:09:53 Is the patient allergic to Iodine/contrast media? No. 14:09:54 Is patient on blood thinner?Yes 14:09:56 ACC The patient was administered the following blood thiners within the last 24 hours: ACCPlavix 14:09:57 Patient diabetic? Yes. 14:09:59 If diabetic: On Metformin? No 14:10:01 Previous problem with sedation/anesthesia? No ? 14:10:02 Snore? Yes 14:10:04 Sleep apnea? No 14:10:06 Deviated septum? No 14:10:06 Opens mouth fully? Yes 14:10:07 Sticks out tongue? Yes 14:10:08 Airway obstruction? No ? 14:10:10 Dentures? No ? 14:10:12 Pre procedure: right dorsailis pedis pulse 1+ Palpable, but thready & weak; easily obliterated 14:10:14 Patient pain scale 0/10 ?. 14:10:20 IV patent on arrival in left forearm with 0.9% NaCl at [facility]. 14:10:50 Lab Result : BUN 24 mg/dl 14:10:50 Lab Result : Creatinine 1 mg/dl 14:10:50 Lab Result : Hemoglobin 10.1 g/dl 14:10:50 Lab Result : Hematocrit 32.8 % 14:10:52 Lab results completed and on chart. 14:10:55 Right groin area was prepped with chlora-prep and draped in sterile fashion 14:10:56 Alarms reviewed by R. N. 14:10:56 Sharps counted by scrub and verified by R.N. 14:10:58 Use device set Femoral Dx 14:10:59 ACIST Syringe (87675) opened to sterile field. 14:11:00 Bag Decanter (2002S) opened to sterile field. 14:11:00 Medline Cath Pack ([id number]) opened to sterile field. 14:11:02 ACIST Hand Control (72007) opened to sterile field. 14:11:02 ACIST Manifold (44739) opened to sterile field. 14:11:04 Tegaderm 4 x 4 (1626W) opened to sterile field. 14:11:05 PERCUTANEOUS ENTRY 19GA needle opened to sterile field. 14:11:06 SHEATH Prelude 5Fr 0.035 (NUT-2R-33-035) opened to sterile field. 14:11:08 DIAGNOSTIC Multipack 5Fr catheter set (EO0841) opened to sterile field. 14:11:09 DIAGNOSTIC WIRE .035 260cm J wire (491773) opened to sterile field. 14:16:08 Zero performed for pressure channel P1 14:28:15 Physician arrived 14::15 --------ALL STOP TIME OUT------ 14::16 Final Timeout: patient, procedure, and site verified with staff and physician. All members of the team are in agreement. 14:28:18 Right groin site verified by team. 14:28:21 Physical assessment completed. ASA score P 2 - A patient with mild systemic disease as per Binh Stewart MD. 14:28:25 Sedation plan: IV Moderate Sedation Medication:Versed, Fentanyl 14:41:07 Fentanyl 50 mcg I.V. was administered by Alphonso De Jesus RN; for sedation; 14:41:14 Versed 1 mg I.V. was administered by Alphonso De Jesus RN; for sedation; 14:42:27 Procedure started. 14:42:30 Local anesthetic to right femoral artery with Lidocaine 2% by Binh Stewart MD.INITIAL ACCESS ONLY 14:42:36 A 5 Fr sheath was inserted into the Right Femoral artery 14:42:40 A MULTIPACK JL 4.0 5Fr catheter was advanced over the wire and used for Procedure. 14:43:45 LCA angiography performed. 14:43:48 Catheter exchanged over wire. 14:43:55 A MULTIPACK 3DRC 5Fr catheter was advanced over the wire and used for Procedure. 14:44:18 RCA angiography performed. 14:44:38 Fentanyl 50 mcg I.V. was administered by Alphonso De Jesus RN; for sedation; 14:44:41 Versed 1 mg I.V. was administered by Alphonso De Jesus RN; for sedation; 14:45:00 SVG to OM angiography performed. 14:45:22 DUMONT to LAD angiography performed. 14:46:23 Catheter exchanged over wire. 14:47:24 A MULTIPACK Pigtail 5 Fr catheter was advanced over the wire and used for Procedure. 14:47:32 LV hemodynamics recorded. 14:47:33 LV gram done using JAUREGUI 14:47:36 Injector settings: Ml/sec: 10, Volume: 20, 14:47:57 EF : 55 % 14:48:02 Catheter exchanged over wire. 14:48:07 A DIAGNOSTIC MPA-2 5Fr catheter ([id number]) was advanced over the wire and used for Procedure. 14:49:32 SVG to RCA angiography performed. 14:49:48 Catheter removed. 14:49:50 EXOSEAL 5Fr (EX500) opened to sterile field. 14:50:21 Sheath removed intact; hemostasis achieved with Exoseal to the Right Femoral artery. 14:50:22 Procedure ended.(Physican Out) 14:50:47 Fluoroscopy time 02.20 minutes. 14:50:52 Fluoroscopy dose: 484 mGy 14:50:52 Flurop Dose total: 484 14:50:55 Contrast amount:Isovue 300 71ml. 14:50:57 Sharps counted by scrub and verified by R.N. 14:50:58 Insertion/operative site no bleeding no hematoma. 14:51:01 Post-op/insertion site Right Femoral artery dressed using a 4 x 4 and Tegaderm. 14:51:05 Post right femoral artery:stable, soft, clean and dry 14:51:07 Post Procedure Pulses reassessed and unchanged 14:51:09 Post-procedure physical assessment completed. ASA score P 2 - A patient with mild systemic disease as per Binh Stewart MD. 14:51:11 Post procedure rhythm: unchanged. 14:51:14 Estimated blood loss: 5 ml 14:51:15 Post procedure instruction explained to patient.Patient verbalizes understanding. 14:51:16 Patient needs reinforcement of post procedure teaching. 14:51:57 Procedure and supply charges have been captured, reviewed, submitted and are correct. 14:52:00 Procedure Complication : No complications 14:52:06 Vital chart was stopped 14:52:06 See physician's report for complete and final results. 14:52:08 Report given to Pre/Post Procedure Room. 14:52:10 Patient transfered to Pre/Post Procedure Room with Stretcher. 14:52:13 Procedure ended. 14:52:13 Full Disclosure recording stopped 14:52:16 End room use (Document Last) Device Usage Item Name Manufacture Quantity Catalog Number Hospital Part Current M inimal Lot# / Charge Number Stock Stock Serial# Code ACIST Syringe Acist 1 15163 [id number] 039787 383721 2 0 (76296) [employer] Bag Decanter Microtek 1 110360 03780 253305 5 () Medical Inc. Medline Cath Cardinal 1 [id number] 329439 98173 213379 5 Pharminox ([id number]) ACIST Hand Acist 1 58281 717757 271329 070046 5 Control (58440) Medical Systems Inc ACIST Manifold Acist 1 27484 847734 619773 252120 5 (33967) Medical Systems Inc Tegaderm 4 x 4 3M 1 1626W 996713 250578 881588 5 (1626W) PERCUTANEOUS Cook Medical 1 [id number] 836759 822776 5 ENTRY 19GA needle SHEATH Prelude Merit 1 XUO-9O-55-035 183190 199277 227471 5 5Fr 0.035 Medical (WBT-8N-16-035) DIAGNOSTIC Cardinal 1 IK5249 678118 06600 063839 3 0 Multipack 5Fr Health catheter set (SZ6131) DIAGNOSTIC WIRE St Christiano 1 111581 309697 399733 175318 3 0 .035 260cm J wire (309893) MULTIPACK JL Cardinal 1 838187 5 4.0 5Fr Health catheter MULTIPACK 3DRC Cardinal 1 838067 5 5Fr catheter Health MULTIPACK Cardinal 1 525420 5 Pigtail 5 Fr Health catheter DIAGNOSTIC Cardinal 1 [id number] 721412 951906 181467 5 MPA-2 5Fr Health catheter ([id number]) EXOSEAL 5Fr Cardinal 1 EX500 843072 208046 572911 1 0 (EX500) Health Signature Audit [place] Stage Time Signature Unsigned Intra-Procedure 02/11/2018 Evgeny Salmeron 2:56:21 PM RT(R) Signatures Monitor : Evgeny Salmeron RT Signature : Date : Time : [facility] [address] [facility] [place] [address]
--- NOTE | ~2018-02-11 | HP ---
PATIENT: INNA SPANGLER MEDICAL RECORD: [id number] ACCOUNT: [id number] LOCATION:MARTHA : 52 ADMISSION DATE: 02/11/18 HISTORY AND PHYSICAL EXAMINATION HISTORY OF PRESENT ILLNESS: Inna Spangler is a 67-year-old lady well known to me with a history of coronary artery disease, status post bypass grafting. She has been having chest pain, scheduled for lumbar laminectomy. However, underwent Cardiolite stress testing which showed some mild reversibility in the inferior wall. Preoperatively, she is being admitted for diagnostic angiography. PAST MEDICAL HISTORY: Includes: 1. History of hypertension. 2. Dyslipidemia. 3. Coronary artery disease as described above. 4. Gastroesophageal reflux disease. ALLERGIES: None known. SOCIAL HISTORY: Nonsmoker, nondrinker. PHYSICAL EXAMINATION: GENERAL: Pleasant female in no acute distress, appears stated age. VITAL SIGNS: Blood pressure 124/64, pulse 70 and regular. HEENT: Normocephalic, atraumatic. NECK: No JVD or bruit. HEART: Regular. LUNGS: Good air excursion. ABDOMEN: Soft, nontender. EXTREMITIES: Pulses 2+ with no edema. IMPRESSION: Preop laminectomy with positive nuclear stress testing. PLAN: For angiography to exclude ischemic burden. TRANSINT:[id number] Voice Confirmation ID: [id number] DOCUMENT ID: [id number] ANA MCINTOSH MD at 0804 CC: [id number] DICTATION DATE: 02/11/18 1502 CURRICULUM AND INSTRUCTION SPECIALIST: 02/11/18 1527 DEP CLI 02/11/18 [address] [place] [address]
[~2018-02-11 09:15] MED LIST changes: +DOXYCYCLINE HY100 M2 PO; +FLORAJEN3 CAPS460 MG PO; +HYDROCODON-ACE1 EAC7 PO; +PREDNISONE20 MG PO
[2018-02-11] MEDS ORDERED: BREO ELLIPTA 21 EACH (10:51)
[2018-02-11] MEDS ORDERED: CYCLOBENZAPRINE10 MG PO (10:52)
[2018-02-11] MEDS ORDERED: HUMULIN R100 U/ML SC (10:54)
[2018-02-11] MEDS ORDERED: CLARITIN 10 MG10 MG PO (10:56)
[2018-02-11] MEDS ORDERED: VITAMIN D250000 UNIT PO (11:01)
[2018-02-11 11:11] VITALS: BP 132/67; Ht 165.1 cm; Wt 90.9 kg
[2018-02-11 11:19] LABS: BASOPHILS 0.1 % (0-2); EOSINOPHILS 0.1 % (0-7); HEMATOCRIT 32.8 % (36.0-48.0); HEMOGLOBIN 10.1 g/dL (12-16); IMMATURE GRANULOCYTES 0.4 % (0-5); LYMPHOCYTES 10.2 % (15-50); MCH 27.4 pg (26.0-34.0); MCHC 30.8 g/dL (31.0-37.0); MCV 89.1 fL (80.0-100.0); MEAN PLATELET VOLUME 8.3 fL (7.4-10.4); NEUTROPHILS 85.2 % (40-80); RBC 3.68 10x6/uL (4.00-5.40); RDW 15.5 % (11.5-14.5); WBC 9.5 10x3/uL (4.8-10.8)
[2018-02-11 11:32] LABS: ANION GAP 14.7 mmol/L (8-16); CALCIUM 9.3 mg/dL (8.5-10.1); CARBON DIOXIDE 23.9 mmol/L (21.0-32.0); PLATELET COUNT 270 10x3/uL (130-400); POTASSIUM - SERUM 4.6 mmol/L (3.5-5.1)
== END 2018-02-11 18:45 | disposition home or self-care (01) ==
LOC: D.CATH 09:15
PROVIDERS: Internal Medicine Interventional Cardiology
DX: I25.10 Atherosclerotic heart disease of native coronary artery without angina pectoris (principal); Z95.1 Presence of aortocoronary bypass graft; E78.5 Hyperlipidemia, unspecified; I10 Essential (primary) hypertension; K21.9 Gastro-esophageal reflux disease without esophagitis; Z01.812 Encounter for preprocedural laboratory examination

== ENCOUNTER → 2018-03-20 08:10 | Outpatient (CLI) | payer MEDICARE, OTHER ==
[2018-02-11 11:11] VITALS: BMI 33.3
[~2018-03-20 08:10] MED LIST changes: +BREO ELLIPTA 21 EACH; +CILOXAN5 ML LEFT EYE; +CLARITIN 10 MG10 MG PO; +CYCLOBENZAPRINE10 MG PO; +HUMULIN R100 U/ML SC; +NEOMYC-POLYM-GR10 ML LEFT EYE; +VITAMIN D250000 UNIT PO
[2018-03-20 08:45] LABS: BASOPHILS 0.2 % (0-2); EOSINOPHILS 0.8 % (0-7); HEMATOCRIT 34.4 % (36.0-48.0); HEMOGLOBIN 10.5 g/dL (12-16); IMMATURE GRANULOCYTES 0.5 % (0-5); LYMPHOCYTES 23.6 % (15-50); MCH 27.6 pg (26.0-34.0); MCHC 30.5 g/dL (31.0-37.0); MCV 90.5 fL (80.0-100.0); MEAN PLATELET VOLUME 8.9 fL (7.4-10.4); MONOCYTES 10.3 % (2-11); NEUTROPHILS 64.6 % (40-80); PLATELET COUNT 265 10x3/uL (130-400); RDW 16.6 % (11.5-14.5); WBC 8.7 10x3/uL (4.8-10.8)
[2018-03-20 08:54] LABS: INR 0.92 (0.85-1.17)
[2018-03-20 09:01] LABS: ALBUMIN 3.3 g/dL (3.4-5.0); ANION GAP 14.3 mmol/L (8-16); BILIRUBIN - TOTAL 0.26 mg/dL (0.2-1.3); CALCIUM 9.5 mg/dL (8.5-10.1); CARBON DIOXIDE 27.6 mmol/L (21.0-32.0); POTASSIUM - SERUM 3.9 mmol/L (3.5-5.1); PROTEIN - SERUM 7.2 g/dL (6.4-8.2)
== END | disposition home or self-care (01) ==
LOC: D.CT 03-16 08:30 → D.LAB 03-16 09:00 → D.CT 08:10
PROVIDERS: Internal Medicine Gastroenterology
DX: K74.60 Unspecified cirrhosis of liver (principal); E83.119 Hemochromatosis, unspecified

== ENCOUNTER 2018-03-23 05:38 | Day surgery (SDC) | payer MEDICARE, OTHER ==
[~2018-03-23] VITALS: Ht 165.1 cm; Wt 100.0 kg
--- NOTE | ~2018-03-23 | OP ---
PATIENT NAME: ANGELES LEAL MEDICAL RECORD: [id number] :54 [facility] DATE: SURGEON: FRIDA OSBORNE DO DATE OF OPERATION: 03/23/2018 PROCEDURE: EGD with biopsies. INDICATIONS FOR PROCEDURE: Dysphagia, heartburn, epigastric abdominal pain, hemochromatosis with cirrhosis. SCOPE: Olympus video gastroscope. MEDICATIONS: Propofol 250 mg IV per anesthesia. ESTIMATED BLOOD LOSS: Minimal. COMPLICATIONS: None. FINDINGS: Informed consent was given. The patient was made comfortable with the above medication. After reaching an adequate level of sedation by slow IV push, the patient was placed on her left side. The endoscope was advanced under direct visualization through the mouth to the second portion of the duodenum. The upper, middle, and lower thirds of the esophagus appeared normal. There was no evidence of any esophageal varices. 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 Cold forceps biopsies were taken to confirm this diagnosis and to rule out any microscopic dysplasia. The endoscope was advanced beyond the GE junction into the stomach and retroflexed to view the cardia, where a small sliding hiatal hernia was present. The fundus and body of the stomach appeared normal. There was no retained food or significant amount of liquid present within the stomach. In the antrum and prepyloric region, there were very few superficial linear ulcerations which were benign-appearing. This could be related to medications. Random biopsies were taken from the antrum, prepyloric region, and body of the stomach to submit for histology and to rule out the presence of H. pylori. The endoscope was advanced beyond the pylorus into the duodenum where the bulb, first portion, and second portion of the duodenum appeared normal. The endoscope was then withdrawn from the patient. The patient tolerated the procedure well and there were no complications. IMPRESSION: 1. 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 Biopsies were taken to confirm the presence of Ballard's and to rule out microscopic dysplasia. 2. Small sliding hiatal hernia. 3. Few superficial gastric ulcers which were benign-appearing. Random biopsies were taken from the stomach to rule out Helicobacter pylori. PLAN AND RECOMMENDATIONS: 1. Discharge home when recovery parameters are met. 2. GERD diet and reflux precautions. 3. Continue current medications, including omeprazole 40 mg daily, ranitidine 150 mg in the evening and Reglan 5 mg t.i.d. The patient's symptoms sound most consistent with gastroparesis. I have discussed following a gastroparesis diet with her, consisting of multiple smaller frequent meals throughout the day, which are low in fiber and fatty substances. She may benefit from another dose OPERATIVE REPORT [id number] ANGELES LEAL of her Reglan just before bedtime or it could be considered to increase her dose to 10 mg t.i.d., although this raises her risk overall of side effects including tardive dyskinesia. 4. If the patient's dysphagia persists, we can consider a barium esophagram and/or esophageal manometry study as there were no strictures, rings, varices, or other reasons identified today for her dysphagia symptoms. TRANSINT:[id number] Voice Confirmation ID: [id number] DOCUMENT ID: [id number] FRIDA OSBORNE DO at 1212 CC: [id number] DICTATION DATE: 03/23/18812 NARROW FABRIC LOOM FIXER: 03/23/18 1404 [facility] 03/23/18 [facility] [address] [place] [address]
[~2018-03-23 05:38] MED LIST changes: -CILOXAN5 ML LEFT EYE; -NEOMYC-POLYM-GR10 ML LEFT EYE
[2018-03-23 05:57] LABS: BASOPHILS 0.2 % (0-2); EOSINOPHILS 0.4 % (0-7); HEMATOCRIT 33.4 % (36.0-48.0); HEMOGLOBIN 10.4 g/dL (12-16); IMMATURE GRANULOCYTES 0.2 % (0-5); MCH 27.7 pg (26.0-34.0); MCHC 31.1 g/dL (31.0-37.0); MCV 88.8 fL (80.0-100.0); MEAN PLATELET VOLUME 8.5 fL (7.4-10.4); MONOCYTES 9.1 % (2-11); NEUTROPHILS 71.1 % (40-80); PLATELET COUNT 268 10x3/uL (130-400); RBC 3.76 10x6/uL (4.00-5.40); RDW 16.1 % (11.5-14.5); WBC 10.2 10x3/uL (4.8-10.8)
[2018-03-23] MEDS ORDERED: CILOXAN5 ML LEFT EYE (06:31)
[2018-03-23] MEDS ORDERED: NEOMYC-POLYM-GR10 ML LEFT EYE (06:31)
[2018-03-23 06:47] VITALS: BP 142/89; Ht 165.1 cm; Wt 100.0 kg
[2018-03-23 06:54] LABS: APTT 26.5 SECONDS (22.8-39.4); INR 0.94 (0.85-1.17); PROTIME 12.2 SECONDS (11.6-15.0)
[2018-03-23 07:07] LABS: ALBUMIN 3.5 g/dL (3.4-5.0); ANION GAP 14.9 mmol/L (8-16); BILIRUBIN - TOTAL 0.27 mg/dL (0.2-1.3); CALCIUM 9.9 mg/dL (8.5-10.1); CARBON DIOXIDE 28.3 mmol/L (21.0-32.0); POTASSIUM - SERUM 4.2 mmol/L (3.5-5.1); PROTEIN - SERUM 7.1 g/dL (6.4-8.2)
== END 2018-03-23 09:13 | disposition home or self-care (01) ==
LOC: D.OPS 05:38
PROVIDERS: Anesthesiology
DX: K21.0 Gastro-esophageal reflux disease with esophagitis (principal); K44.9 Diaphragmatic hernia without obstruction or gangrene; K25.9 Gastric ulcer, unspecified as acute or chronic, without hemorrhage or perforation; K29.50 Unspecified chronic gastritis without bleeding; E83.119 Hemochromatosis, unspecified; K74.60 Unspecified cirrhosis of liver; Z01.812 Encounter for preprocedural laboratory examination

== ENCOUNTER → 2018-04-03 06:56 | Outpatient (CLI) | payer MEDICARE, OTHER ==
[2018-03-23 06:47] VITALS: BMI 36.6
[~2018-04-03 06:56] MED LIST changes: +CILOXAN5 ML LEFT EYE; +NEOMYC-POLYM-GR10 ML LEFT EYE
== END | disposition home or self-care (01) ==
LOC: D.CT 06:56
DX: R93.5 Abnormal findings on diagnostic imaging of other abdominal regions, including retroperitoneum (principal)

== ENCOUNTER → 2018-09-14 06:52 | Outpatient (CLI) | payer MEDICARE, OTHER ==
[2018-03-23 06:47] VITALS: BMI 36.6
[2018-09-14 07:25] LABS: BASOPHILS 0.5 % (0-2); HEMATOCRIT 39.3 % (36.0-48.0); HEMOGLOBIN 13.1 g/dL (12-16); IMMATURE GRANULOCYTES 0.3 % (0-5); LYMPHOCYTES 24.1 % (15-50); MCH 31.6 pg (26.0-34.0); MCHC 33.3 g/dL (31.0-37.0); MCV 94.7 fL (80.0-100.0); MEAN PLATELET VOLUME 8.9 fL (7.4-10.4); MONOCYTES 10.1 % (2-11); PLATELET COUNT 241 10x3/uL (130-400); RBC 4.15 10x6/uL (4.00-5.40); RDW 16.9 % (11.5-14.5); WBC 6.6 10x3/uL (4.8-10.8)
[2018-09-14 07:40] LABS: ALBUMIN 3.2 g/dL (3.4-5.0); ANION GAP 17.1 mmol/L (8-16); BILIRUBIN - TOTAL 0.19 mg/dL (0.2-1.3); CALCIUM 8.8 mg/dL (8.5-10.1); CARBON DIOXIDE 25.3 mmol/L (21.0-32.0); CREATININE - SERUM 1.3 mg/dL (0.6-1.3); POTASSIUM - SERUM 4.4 mmol/L (3.5-5.1); PROTEIN - SERUM 7.3 g/dL (6.4-8.2)
[2018-09-14 07:53] LABS: PROTIME 12.7 SECONDS (11.6-15.0)
== END | disposition home or self-care (01) ==
LOC: D.CT 06:52
PROVIDERS: Internal Medicine Gastroenterology
DX: K74.60 Unspecified cirrhosis of liver (principal); E83.119 Hemochromatosis, unspecified

== ENCOUNTER 2018-10-08 08:56 | Outpatient (CLI) | payer MEDICARE, OTHER ==
[2018-03-23 06:47] VITALS: BMI 36.6
== END 2018-10-08 10:10 | disposition home or self-care (01) ==
LOC: D.OPS 08:56
DX: M19.019 Primary osteoarthritis, unspecified shoulder (principal); R13.10 Dysphagia, unspecified; E83.119 Hemochromatosis, unspecified; K74.60 Unspecified cirrhosis of liver

== ENCOUNTER → 2019-01-11 09:49 | Outpatient (CLI) | payer MEDICARE, BC ==
[2018-03-23 06:47] VITALS: BMI 36.6
--- NOTE | 2019-01-13 14:51 | EC ---
PATIENT:ZITA LEAL DATE OF SERVICE: 01/11/19 SEX: F MEDICAL RECORD: [id number] DATE OF : 54 LOCATION:[facility] AGE OF PATIENT: 68 ADMISSION DATE: 01/11/19 REFERRING PHYSICIAN: INTERPRETING PHYSICIAN: ANA MCINTOSH MD ECHOCARDIOGRAM REPORT ECHO CHARGES 4 ECHO COMPLETE Date: 01/11/19 CLINICAL DIAGNOSIS: HEART MURMUR ECHOCARDIOGRAPHIC MEASUREMENTS (adult normal given) AC root (d.<3.7cm) 3.5 cm LV Septum d (<1.2 cm> 1.2 cm Valve Excursion 1.3 cm LV Septum (systole) 1.6 cm Left Atria (s.<4.0cm> 3.9 cm LVPW d(<1.2cm) 1.7 cm RV (d.<2.3cm) 3.0 cm LVPW (sytole) 1.8 cm LV diastole(<5.6CM) 4.6 cm MV E-F(>70mm/sec) cm LV systole 3.0 cm LVOT Diameter 1.5 cm MV exc.(>10mm) 1.6 cm Est.ejection fraction (50-75%) % DOPPLER: LVIT cm/sec A 99.0 cm/sec E 76.0 cm/sec LA cm/sec RVSP 31 mmHg LVOT 116 cm/sec AOP1/2T m/s Asc. Ao 250 cm/sec RVOT 86 cm/sec RA cm/sec PA 197 cm/sec AV Gradient Peak 25.05mmHg AV Mean 13.90mmHg AV Area 1.2 cm MV Gradient Peak 5.10 mmHg MV Mean 1.50 mmHg MV Area cm COMMENTS: Ice Sculptor: 2 JOEL FLORES Lumber Scaler: 3 Dr. Truong TAPE# PACS Pericardial Effusion N DATE OF SERVICE: Adequate 2D, color flow, spectral Doppler, and M-Mode. Borderline LVH. LV internal dimensions are normal. Wall motion is normal. EF is greater than or equal to 55%. Aortic valve sclerosis with some restriction of leaflet motion. Peak gradient of 25 mmHg, mildly range. Left atrium is normal. Mitral valve shows no prolapse. Trace MR. Right-sided chambers grossly normal. Trace TR. TRANSINT:[id number] Voice Confirmation ID: [id number] DOCUMENT ID: [id number] ECHOCARDIOGRAM REPORT [id number] ZITA LEAL GREGORY A MD at 1451 CC: [id number] DICTATION DATE: 01/12/19 1416 VINEYARD SUPERVISOR: 01/12/19 1558 DEP CLI 01/11/19 [place] [id number] [place] [address]
== END | disposition home or self-care (01) ==
LOC: D.HCCARDIO 09:49
PROVIDERS: ATTEND Internal Medicine Interventional Cardiology
DX: R01.1 Cardiac murmur, unspecified (principal)

== ENCOUNTER → 2019-03-15 08:18 | Outpatient (CLI) | payer MEDICARE, BC ==
[2018-03-23 06:47] VITALS: BMI 36.6
[2019-03-15 08:58] LABS: ALBUMIN 3.6 g/dL (3.4-5.0); ANION GAP 14.5 mmol/L (8-16); BILIRUBIN - TOTAL 0.35 mg/dL (0.2-1.3); CALCIUM 9.5 mg/dL (8.5-10.1); CREATININE - SERUM 0.9 mg/dL (0.6-1.3); POTASSIUM - SERUM 4.5 mmol/L (3.5-5.1); PROTEIN - SERUM 7.6 g/dL (6.4-8.2)
[2019-03-15 09:16] LABS: INR 1.01 (0.85-1.17); PROTIME 12.8 SECONDS (11.6-15.0)
[2019-03-15 09:26] LABS: BASOPHILS 0.3 % (0-2); EOSINOPHILS 1.3 % (0-7); HEMATOCRIT 40.3 % (36.0-48.0); HEMOGLOBIN 13.8 g/dL (12-16); IMMATURE GRANULOCYTES 0.1 % (0-5); LYMPHOCYTES 20.3 % (15-50); MCH 31.8 pg (26.0-34.0); MCHC 34.2 g/dL (31.0-37.0); MCV 92.9 fL (80.0-100.0); MONOCYTES 8.7 % (2-11); NEUTROPHILS 69.3 % (40-80); RBC 4.34 10x6/uL (4.00-5.40)
[2019-03-15 09:30] LABS: PLATELET COUNT 305 10x3/uL (130-400)
== END | disposition home or self-care (01) ==
LOC: D.OPS 11-19 09:30 → D.LAB 08:00 → D.CT 09:00
PROVIDERS: ATTEND Internal Medicine Gastroenterology
DX: K74.60 Unspecified cirrhosis of liver (principal)

== ENCOUNTER → 2019-09-06 08:28 | Outpatient (CLI) | payer MEDICARE, BC ==
[2018-03-23 06:47] VITALS: BMI 36.6
--- NOTE | 2019-09-13 09:58 | EC ---
PATIENT:ZITA LEAL DATE OF SERVICE: 09/06/19 SEX: F MEDICAL RECORD: [id number] DATE OF : 54 [facility] AGE OF PATIENT: 69 ADMISSION DATE: 09/06/19 REFERRING PHYSICIAN: INTERPRETING PHYSICIAN: ANA MCINTOSH MD ECHOCARDIOGRAM REPORT ECHO CHARGES 4 ECHO COMPLETE Date: 09/06/19 CLINICAL DIAGNOSIS: DYSPNEA/ANGINA/MURMUR H/O HTN/CAD/PVD ECHOCARDIOGRAPHIC MEASUREMENTS (adult normal given) AC root (d.<3.7cm) 3.3 cm LV Septum d (<1.2 cm> 1.1 cm Valve Excursion 0.6 cm LV Septum (systole) 1.5 cm Left Atria (s.<4.0cm> 4.0 cm LVPW d(<1.2cm) 1.1 cm RV (d.<2.3cm) 2.8 cm LVPW (sytole) 1.7 cm LV diastole(<5.6CM) 3.7 cm MV E-F(>70mm/sec) cm LV systole 1.7 cm LVOT Diameter 1.7 cm MV exc.(>10mm) cm Est.ejection fraction (50-75%) % DOPPLER: LVIT cm/sec A 95.0 cm/sec E 64.0 cm/sec LA cm/sec RVSP 22.0 mmHg LVOT 94.0 cm/sec AOP1/2T m/s Asc. Ao 252 cm/sec RVOT 45.0 cm/sec RA cm/sec PA 93.0 cm/sec AV Gradient Peak 26.0 mmHg AV Mean 16.0 mmHg AV Area 0.8 cm MV Gradient Peak 4.4 mmHg MV Mean 1.3 mmHg MV Area cm COMMENTS: OP - HC Welt Maker: 1 TYREL RAZAOE Laundry Attendant: 3 Dr. Truong TAPE# PACS Pericardial Effusion N DATE OF SERVICE: 09/06/2019 Adequate 2D echo, color flow, spectral Doppler, and M-mode. LVH is present. LV internal dimension is normal. Wall motion is normal. EF is greater than or equal to 55%. Aortic valve is calcified with some restriction of leaflet motion. Peak gradient of 26 mmHg putting this in mild range. Left atrium normal at 4.0 cm. Mitral valve shows no prolapse. Trace MR. Right-sided chambers grossly normal. Mild TR. ECHOCARDIOGRAM REPORT [id number] ZITA LEAL TRANSINT:[id number] Voice Confirmation ID: [id number] DOCUMENT ID: [id number] ANA MCINTOSH MD at 0958 CC: [id number] DICTATION DATE: 09/07/191406 PAINTER CHASSIS: 09/07/19 1715 DEP CLI 09/06/19 [address] [id number] [place] [address]
== END | disposition home or self-care (01) ==
LOC: D.HCCECHO 08-16 11:30
PROVIDERS: ATTEND Internal Medicine Interventional Cardiology
DX: I25.10 Atherosclerotic heart disease of native coronary artery without angina pectoris (principal)

== ENCOUNTER → 2019-09-27 09:49 | Outpatient (CLI) | payer MEDICARE, BC ==
[2018-03-23 06:47] VITALS: BMI 36.6
[2019-09-27 10:16] LABS: BASOPHILS 0.5 % (0-2); EOSINOPHILS 0.5 % (0-7); HEMOGLOBIN 14.8 g/dL (12-16); IMMATURE GRANULOCYTES 0.2 % (0-5); LYMPHOCYTES 17.4 % (15-50); MCH 34.6 pg (26.0-34.0); MCHC 35.2 g/dL (31.0-37.0); MCV 98.1 fL (80.0-100.0); MEAN PLATELET VOLUME 8.4 fL (7.4-10.4); MONOCYTES 9.7 % (2-11); NEUTROPHILS 71.7 % (40-80); RBC 4.28 10x6/uL (4.00-5.40); RDW 13.5 % (11.5-14.5); WBC 5.8 10x3/uL (4.8-10.8)
[2019-09-27 10:22] LABS: PLATELET COUNT 208 10x3/uL (130-400)
[2019-09-27 10:36] LABS: ALBUMIN 3.5 g/dL (3.4-5.0); ANION GAP 14.5 mmol/L (8-16); BILIRUBIN - DIRECT 0.1 mg/dL (0.00-0.30); BILIRUBIN - INDIRECT 0.38 mg/dL (0.00-1.00); BILIRUBIN - TOTAL 0.48 mg/dL (0.2-1.3); CALCIUM 9.4 mg/dL (8.5-10.1); CARBON DIOXIDE 23.7 mmol/L (21.0-32.0); INR 1.04 (0.85-1.17); POTASSIUM - SERUM 4.2 mmol/L (3.5-5.1); PROTEIN - SERUM 7.1 g/dL (6.4-8.2); PROTIME 13.1 SECONDS (11.6-15.0)
== END | disposition home or self-care (01) ==
LOC: D.LAB 09:45 → D.US 10:00
PROVIDERS: ATTEND Internal Medicine Gastroenterology
DX: K74.60 Unspecified cirrhosis of liver (principal)

== ENCOUNTER → 2019-10-15 08:58 | Outpatient (CLI) | payer MEDICARE, BC ==
[2018-03-23 06:47] VITALS: BMI 36.6
== END | disposition home or self-care (01) ==
LOC: D.RAD 08:58
PROVIDERS: ATTEND Internal Medicine Gastroenterology
DX: R13.10 Dysphagia, unspecified (principal); K21.9 Gastro-esophageal reflux disease without esophagitis; K22.4 Dyskinesia of esophagus

== ENCOUNTER 2020-01-10 10:17 | Inpatient (IN) | payer MEDICARE, BC ==
[~2020-01-10] VITALS: Ht 160 cm; Wt 65.8 kg
[2020-01-10] MEDS ORDERED: SMZ-TMP DS 800-1 TAB PO (11:01)
[2020-01-10] MEDS ORDERED: OS-CAL500 MG PO (11:02)
[2020-01-10] MEDS ORDERED: COLACE100 MG PO (11:03)
[2020-01-10] MEDS ORDERED: LINZESS145 MCG PO (11:03)
[2020-01-10] MEDS ORDERED: MECLIZINE HCL25 MG PO (11:04)
[2020-01-10 12:16] LABS: HEMOGLOBIN 13.3 g/dL (12-16); MCH 33.9 pg (26.0-34.0); MCV 96.9 fL (80.0-100.0); MEAN PLATELET VOLUME 8.2 fL (7.4-10.4); RBC 3.92 10x6/uL (4.00-5.40); RDW 12.1 % (11.5-14.5); WBC 10.2 10x3/uL (4.8-10.8)
[2020-01-10 12:25] LABS: ANION GAP 12.9 mmol/L (8-16); CALCIUM 8.5 mg/dL (8.5-10.1); CARBON DIOXIDE 22.8 mmol/L (21.0-32.0); CREATININE - SERUM 1.4 mg/dL (0.6-1.3); POTASSIUM - SERUM 4.7 mmol/L (3.5-5.1)
[2020-01-11] MEDS ORDERED: CYANOCOBAL1000 MCG/4 SC (09:37)
[2020-01-11 09:39] VITALS: BP 134/64; Ht 160 cm; Wt 65.8 kg
[2020-01-11] MEDS ORDERED: LIDODERM 5 %1 PATCH TRANSDERM (09:40)
[2020-01-11] MEDS ORDERED: SINGULAIR10 MG PO (09:43)
[2020-01-11] MEDS ORDERED: REGLAN5 MG PO (09:43)
[2020-01-11] MEDS ORDERED: MUPIROCIN15 GM TOPICAL (09:44)
[2020-01-11] MEDS ORDERED: NYSTATIN (09:46)
[2020-01-11] MEDS ORDERED: OXYGEN (09:47)
[2020-01-11] MEDS ORDERED: OCUFLOX 0.3 % OP5 ML LEFT EYE (09:48)
[2020-01-11] MEDS ORDERED: OCUFLOX 0.3 % OP5 ML OP (09:49)
[2020-01-11] MEDS ORDERED: PREDNISONE (09:50)
[2020-01-11] MEDS ORDERED: OPTIVE SENSITI1 EACH EACH EYE (09:51)
[2020-01-11] MEDS ORDERED: TYLENOL ARTHRI650 MG PO (09:52)
[2020-01-11] MEDS ORDERED: VIT D2 (09:53)
[2020-01-11] MEDS ORDERED: VOLTAREN100 GM TOPICAL (09:53)
[2020-01-11] MEDS ORDERED: ZYRTEC10 MG PO (09:54)
[2020-01-11] MEDS ORDERED: HYDROCODON-ACE1 EAC7 PO (14:11)
--- NOTE | 2020-01-11 15:11 | NUR ---
1505 FL ADA DIET SERVED
--- NOTE | 2020-01-12 08:33 | OP ---
PATIENT NAME: ANGELES LEAL MEDICAL RECORD: [id number] :54 LOC[facility] [place] [place] DATE:01/11/20 SURGEON: LEN MATHEW DO DATE OF OPERATION: 01/11/2020 PROCEDURE PERFORMED: Transmetatarsal amputation of the right foot. PREOPERATIVE DIAGNOSIS: Chronic diabetic foot ulcer of the right great toe. POSTOPERATIVE DIAGNOSIS: Chronic diabetic foot ulcer of the right great toe. INDICATIONS: Ms. Leal is a 69-year-old female who has had this right great toe ulcer for years, has been trying local wound care to no avail. It also started to appear to be infected and redness going up her foot. She has very brittle diabetes and cannot see or hear well. I informed her that we do transmetatarsal amputation, she did have an ulcer on her small toe; however, I told her that we would just make it easier for transmetatarsal amputation for her foot function following that. She was okay with that and aware of the risk of infection, need for further amputation, nonhealing wounds and signed the consent. SURGEON: Len Mathew DO DESCRIPTION OF PROCEDURE: The patient was taken to the operative suite, laid in supine position, given gram of vancomycin sedated and LMA was placed. The right lower extremity was then prepped and draped in sterile fashion. Timeout was performed, everyone was agreeance with the correct side, site, patient and procedure. I then began by marking out the incision a fishmouth type pattern on the right foot at the distal metatarsals. I then used a 15-blade scalpel, went down to the metatarsals, cutting the tendons and soft tissue, making a full thickness cut. We then used a saw and cut through the metatarsals and then removed the 2 toes that were left and the distal metatarsal. We then rongeured back any spikes and rasping all the metatarsals to assure there were no sharp pieces. I then brought up a flap from the plantar surface to the dorsal surface and sutured it in place with 2-0 Prolene in a horizontal and vertical mattress fashion. I was assisted by Alejandro Butt, certified surgical physiotherapist's assistant. He assisted with closing, retraction. We did have the tourniquet up and it was up for 13 minutes at 350 mmHg and the right lower extremity leg was exsanguinated prior to inflating it. There were no obvious bleeders upon closing the wounds. She then was dressed with Adaptic, 4 x 4s, ABD, cast padding and Herson wrap, awaken and taken to recovery in stable condition. BLOOD LOSS: Minimal. COMPLICATIONS: None. TRANSINT:[id number] Voice Confirmation ID: [id number] DOCUMENT ID: [id number] OPERATIVE REPORT [id number] ANGELES LEAL MICHAEL D, DO at 0833 CC: [id number] DICTATION DATE: 01/11/20 1418 PATIENT ACCESS: 01/12/20 0129 DIS IN 01/11/20 [facility] [address] [place] [address]
== END 2020-01-11 16:15 | disposition home or self-care (01) | DRG 618 ==
LOC: D.SDCHOLD 01-11 08:45
PROVIDERS: Anesthesiology; ADMIT Orthopaedic Surgery; ATTEND Orthopaedic Surgery
PROC: 0Y6M0ZF Detachment at Right Foot, Partial 5th Ray, Open Approach (ICD-10-PCS; 2020-01-11)
PROC: 0Y6M0Z9 Detachment at Right Foot, Partial 1st Ray, Open Approach (ICD-10-PCS; principal; 2020-01-11 11:40)
DX: E11.621 Type 2 diabetes mellitus with foot ulcer (principal); E55.9 Vitamin D deficiency, unspecified; E78.5 Hyperlipidemia, unspecified; E66.01 Morbid (severe) obesity due to excess calories; E11.40 Type 2 diabetes mellitus with diabetic neuropathy, unspecified; I12.9 Hypertensive chronic kidney disease with stage 1 through stage 4 chronic kidney disease, or unspecified chronic kidney disease; E11.22 Type 2 diabetes mellitus with diabetic chronic kidney disease; N18.3 Chronic kidney disease, stage 3 (moderate); K21.9 Gastro-esophageal reflux disease without esophagitis

== ENCOUNTER → 2020-03-14 08:39 | Outpatient (CLI) | payer MEDICARE, BC ==
[2020-01-11 09:39] VITALS: BMI 25.7
[~2020-03-14 08:39] MED LIST changes: +COLACE100 MG PO; +CYANOCOBAL1000 MCG/4 SC; +LIDODERM 5 %1 PATCH TRANSDERM; +LINZESS145 MCG PO; +MUPIROCIN15 GM TOPICAL; +NYSTATIN; +OCUFLOX 0.3 % OP5 ML LEFT EYE; +OCUFLOX 0.3 % OP5 ML OP; +OPTIVE SENSITI1 EACH EACH EYE; +OS-CAL500 MG PO; +OXYGEN; +PREDNISONE; +REGLAN5 MG PO; +SMZ-TMP DS 800-1 TAB PO; +TYLENOL ARTHRI650 MG PO; +VIT D2; +VOLTAREN100 GM TOPICAL; +ZYRTEC10 MG PO
[2020-03-14 09:09] LABS: BASOPHILS 0.5 % (0-2); EOSINOPHILS 4.2 % (0-7); HEMATOCRIT 38.5 % (36.0-48.0); HEMOGLOBIN 12.9 g/dL (12-16); IMMATURE GRANULOCYTES 0.2 % (0-5); LYMPHOCYTES 27.4 % (15-50); MCH 32.5 pg (26.0-34.0); MCHC 33.5 g/dL (31.0-37.0); MEAN PLATELET VOLUME 8.6 fL (7.4-10.4); MONOCYTES 9.8 % (2-11); NEUTROPHILS 57.9 % (40-80); RBC 3.97 10x6/uL (4.00-5.40); RDW 12.4 % (11.5-14.5); WBC 5.9 10x3/uL (4.8-10.8)
[2020-03-14 09:15] LABS: PLATELET COUNT 240 10x3/uL (130-400)
[2020-03-14 09:37] LABS: INR 1.02 (0.85-1.17); PROTIME 13.4 SECONDS (11.6-15.0)
[2020-03-14 09:43] LABS: ALBUMIN 3.6 g/dL (3.4-5.0); ANION GAP 11.9 mmol/L (8-16); BILIRUBIN - DIRECT 0.07 mg/dL (0.00-0.30); BILIRUBIN - INDIRECT 0.18 mg/dL (0.00-1.00); BILIRUBIN - TOTAL 0.25 mg/dL (0.2-1.3); CREATININE - SERUM 1.2 mg/dL (0.6-1.3); POTASSIUM - SERUM 3.9 mmol/L (3.5-5.1); PROTEIN - SERUM 7.3 g/dL (6.4-8.2)
== END | disposition home or self-care (01) ==
LOC: D.US 08:39
PROVIDERS: ATTEND Internal Medicine Gastroenterology
DX: K74.60 Unspecified cirrhosis of liver (principal)

== ENCOUNTER → 2020-03-17 09:22 | Outpatient (CLI) | payer MEDICARE, BC ==
[2020-01-11 09:39] VITALS: BMI 25.7
== END | disposition home or self-care (01) ==
LOC: D.NM 09:22
PROVIDERS: ATTEND Family Medicine
DX: M79.10 Myalgia, unspecified site (principal); M85.80 Other specified disorders of bone density and structure, unspecified site

== ENCOUNTER → 2020-04-19 11:34 | Outpatient (CLI) | payer MEDICARE, BC ==
[2020-01-11 09:39] VITALS: BMI 25.7
[~2020-04-19 11:34] MED LIST changes: +PEPCID40 MG PO
== END | disposition home or self-care (01) ==
LOC: D.LAB 11:34
PROVIDERS: ATTEND Internal Medicine Pulmonary Disease
DX: Z11.59 Encounter for screening for other viral diseases (principal)

== ENCOUNTER 2020-04-21 12:30 | Day surgery (SDC) | payer MEDICARE, BC ==
[~2020-04-21] VITALS: Ht 160 cm; Wt 65.8 kg
[~2020-04-21 12:30] MED LIST changes: -PEPCID40 MG PO
[2020-04-21 14:25] LABS: HEMATOCRIT 39.6 % (36.0-48.0); HEMOGLOBIN 13.4 g/dL (12-16); LYMPHOCYTES 32.6 % (15-50); MCH 31.8 pg (26.0-34.0); MCHC 33.8 g/dL (31.0-37.0); MCV 93.8 fL (80.0-100.0); MEAN PLATELET VOLUME 8.1 fL (7.4-10.4); NEUTROPHILS 59.1 % (40-80); PLATELET COUNT 238 10x3/uL (130-400); RBC 4.22 10x6/uL (4.00-5.40); RDW 12.5 % (11.5-14.5); WBC 6.5 10x3/uL (4.8-10.8)
[2020-04-21 15:08] LABS: ANION GAP 11.1 mmol/L (8-16); CARBON DIOXIDE 26.9 mmol/L (21.0-32.0); CREATININE - SERUM 1.3 mg/dL (0.6-1.3)
[2020-04-21 15:55] VITALS: BP 135/68; Ht 160 cm; Wt 65.8 kg
[2020-04-21] MEDS ORDERED: PEPCID40 MG PO (16:51)
[2020-04-21] MEDS ORDERED: TOPAMAX50 MG PO (16:52)
[2020-04-21] MEDS ORDERED: OMEPRAZOLE40 MG PO (16:53)
--- NOTE | 2020-04-21 19:15 | NUR ---
1814 MEDICATED FOR PAIN. 1829 IV REMOVED AND INSTRUCTIONS GIVEN. 1839 PT D/C HOME IN W/C
--- NOTE | 2020-04-25 06:42 | OP ---
PATIENT NAME: ANGELES LEAL MEDICAL RECORD: [id number] :54 LOCATION:D.[facility] ADMISSION DATE: SURGEON: JACQUELYN MATHEW DO DATE OF OPERATION: 04/21/2020 PROCEDURE PERFORMED: Right foot I and D with Kerecis application. PREOPERATIVE DIAGNOSIS: Nonhealing wound, right foot. POSTOPERATIVE DIAGNOSIS: Nonhealing wound, right foot. INDICATION FOR PROCEDURE: Ms. Lael is a 70-year-old female who I did a transmetatarsal amputation on the right foot, I think 5 months ago. She healed up somewhat and then had an ulcer on the medial and inferior aspect of the foot just adjacent to the incision. We had been nursing this along for the last few months, has not been progressing or getting better, so decided to put keratosis on it. She was okay with that and is aware of the risks including infection, bleeding, need for further amputation, blood clots, and even and signed the consent. SURGEON: Jacquelyn Mathew DO DESCRIPTION OF PROCEDURE: The patient was taken to operative suite and laid in supine position, given general anesthetic. LMA was placed. The right lower extremity was then prepped and draped in sterile fashion. Time out was performed. Everyone was in agreement with the correct side, site, patient, and procedure. We then began by debriding the wound with a pickup and a knife back to a bleeding surface and then used a curette to debride it further and then put 3 x 3 Kerecis patch cut in half, stuffed in the wound and then put the other half and sutured in with 4-0 Monocryl and dressed it after irrigating prior to putting them in and then wrapped with Adaptic, 4 x 4s, Kerlix, and then a 4-inch Herson wrap. She was awakened and taken to recovery in stable condition. ESTIMATED BLOOD LOSS: Minimal. COMPLICATION: None. TRANSINT:[id number] Voice Confirmation ID: [id number] DOCUMENT ID: [id number] JACQUELYN MATHEW DO at 0642 CC: [id number] DICTATION DATE: 04/21/20 171 MACHINE BOSS: 04/21/202200 [facility] 04/21/20 [id number] [place] [id number]
== END 2020-04-21 18:40 | disposition home or self-care (01) ==
LOC: D.OPS 12:30 → D.RT 12:30 → D.OPS 15:45
PROVIDERS: Anesthesiology; ATTEND Orthopaedic Surgery
DX: T81.89XA Other complications of procedures, not elsewhere classified, initial encounter (principal); E11.40 Type 2 diabetes mellitus with diabetic neuropathy, unspecified; J45.909 Unspecified asthma, uncomplicated; K21.9 Gastro-esophageal reflux disease without esophagitis; I10 Essential (primary) hypertension

== ENCOUNTER → 2020-07-14 09:04 | Outpatient (CLI) | payer MEDICARE, BC ==
[2020-04-21 15:55] VITALS: BMI 25.7
[~2020-07-14 09:04] MED LIST changes: +PEPCID40 MG PO
== END | disposition home or self-care (01) ==
LOC: D.MRI 08:00
PROVIDERS: ATTEND Clinical Nurse Specialist Family Health
DX: M54.12 Radiculopathy, cervical region (principal)

== ENCOUNTER 2020-12-22 09:22 | Inpatient (IN) | payer MEDICARE, BC ==
[~2020-12-22] VITALS: Ht 160 cm; Wt 63.5 kg
[~2020-12-22 09:22] MED LIST changes: +GLUCAGEN IM; +GLUCAGEN SC; +HUMALOG 30100 UNITS/ SC; +NYSTATIN1 PWD TOPICAL; +OXYBUTYNIN CHLOR5 M1 PO; +PRED FORTE5 ML LEFT EYE; -PREDNISONE; +PREDNISONE LEFT EYE; +ROCEPHIN 1 GM/D51 G1 IV; +ZOFRAN INJ IV
[2020-12-22 09:44] VITALS: BP 148/68
[2020-12-22 10:00] LABS: BASOPHILS 0.4 % (0-2); EOSINOPHILS 1.4 % (0-7); HEMATOCRIT 34.9 % (36.0-48.0); HEMOGLOBIN 11.8 g/dL (12-16); IMMATURE GRANULOCYTES 0.3 % (0-5); LYMPHOCYTE ABS# 1.67 10x3/uL (1.18-3.74); LYMPHOCYTES 16.3 % (15-50); MCH 32.4 pg (26.0-34.0); MCHC 33.8 g/dL (31.0-37.0); MCV 95.9 fL (80.0-100.0); MONOCYTES 10.5 % (2-11); NEUTROPHIL ABS# 7.28 10x3/uL (1.56-6.13); NEUTROPHILS 71.1 % (40-80); PLATELET COUNT 189 10x3/uL (130-400); RBC 3.64 10x6/uL (4.00-5.40); WBC 10.2 10x3/uL (4.8-10.8)
[2020-12-22 10:05] LABS: CALC OSMOLALITY 290 mosm/kg (275-300); CALCIUM 8.8 mg/dL (8.5-10.1); CHLORIDE - SERUM 105 mmol/L (98-107); CREATININE - SERUM 1.6 mg/dL (0.6-1.3); GLUCOSE 163 mg/dL (74-106); POTASSIUM - SERUM 4.5 mmol/L (3.5-5.1); SODIUM 139 mmol/L (136-145); UREA NITROGEN 39 mg/dL (7-18); eGFR NON AFRICAN AMERICAN 34 mL/min (90-120)
[2020-12-22 10:10] LABS: INR 1.1 (0.85-1.17); PROTIME 13.2 SECONDS (11.6-15.0)
[2020-12-22 10:23] LABS: ALBUMIN 3.1 g/dL (3.4-5.0); ALKALINE PHOSPHATASE 78 U/L (30-120); ALT (SGPT) 13 U/L (10-68); BILIRUBIN - TOTAL 0.29 mg/dL (0.2-1.3); CKMB 0.7 U/L (0.0-3.6); CREATINE KINASE 57 UL (21-215); PROTEIN - SERUM 6.6 g/dL (6.4-8.2)
[2020-12-22 10:25] LABS: TROPONIN-I < 0.017 ng/mL (0.000-0.060)
[2020-12-22 13:06] VITALS: BP 140/70
--- NOTE | 2020-12-22 13:48 | NUR ---
PT TO ROOM FROM ER VIA WHEELCHAIR. PT WITH SOFT COLLAR ON FROM CERVICAL DISK SURGERY FEW DAYS AGO. STATES SHE IS MOSTLY BLIND. BREATHING OK NOW BUT IF LAYING DOWN IS WORSE AND MORE PAINFUL. STATES MISSING TOES SO WALKING IS BETTER WITH WALKER. INSTRUCTED TO CALL FOR ASSIST TO BATHROOM.
[2020-12-22 14:00] VITALS: BP 137/96
[2020-12-22 14:26] VITALS: Ht 160 cm; Wt 63.5 kg
[2020-12-22 16:38] LABS: CKMB 0.3 U/L (0.0-3.6); CREATINE KINASE 47 UL (21-215)
[2020-12-22 16:40] LABS: TROPONIN-I < 0.017 ng/mL (0.000-0.060)
[2020-12-22 17:20] LABS: BILIRUBIN NEGATIVE (NEGATIVE); KETONE NEGATIVE (NEGATIVE); NITRITE NEGATIVE (NEGATIVE); UROBILINOGEN NORMAL mg/dL (< 2)
[2020-12-22] MEDS ORDERED: ISOSORBIDE MONO60 M1 PO (17:50)
[2020-12-22] MEDS ORDERED: METHOCARBAMOL500 MG PO (17:51)
[2020-12-22] MEDS ORDERED: NORVASC5 MG PO (17:53)
--- NOTE | 2020-12-22 17:54 | NUR ---
PT'S MED REC COMPLETED USING OLD RECORDS. SHE STATES THAT HOME HEALTH COMES AND ORGANIZES WEEKLY MED BINS DUE TO BLINDNESS.
[2020-12-22 20:26] VITALS: BP 127/49
[2020-12-22 23:19] LABS: CKMB 0.4 U/L (0.0-3.6); CREATINE KINASE 39 UL (21-215)
[2020-12-22 23:20] LABS: TROPONIN-I < 0.017 ng/mL (0.000-0.060)
[2020-12-23 03:53] VITALS: BP 154/64
[2020-12-23 04:48] LABS: BASOPHILS 0.1 % (0-2); EOSINOPHILS 0.6 % (0-7); HEMATOCRIT 33.2 % (36.0-48.0); HEMOGLOBIN 11.1 g/dL (12-16); IMMATURE GRANULOCYTES 0.1 % (0-5); LYMPHOCYTE ABS# 1.86 10x3/uL (1.18-3.74); LYMPHOCYTES 22.8 % (15-50); MCH 31.7 pg (26.0-34.0); MCHC 33.4 g/dL (31.0-37.0); MCV 94.9 fL (80.0-100.0); MEAN PLATELET VOLUME 9.2 fL (7.4-10.4); MONOCYTES 8.7 % (2-11); NEUTROPHIL ABS# 5.52 10x3/uL (1.56-6.13); NEUTROPHILS 67.7 % (40-80); PLATELET COUNT 187 10x3/uL (130-400); RDW 12.9 % (11.5-14.5); WBC 8.2 10x3/uL (4.8-10.8)
[2020-12-23 05:17] LABS: ANION GAP 10.6 mmol/L (8-16); CALCIUM 8.5 mg/dL (8.5-10.1); CARBON DIOXIDE 26.8 mmol/L (21.0-32.0); CREATININE - SERUM 1.7 mg/dL (0.6-1.3)
[2020-12-23 05:20] LABS: POTASSIUM - SERUM 3.4 mmol/L (3.5-5.1)
[2020-12-23 07:37] LABS: CKMB 0.7 U/L (0.0-3.6); CREATINE KINASE 36 UL (21-215)
[2020-12-23 07:40] LABS: TROPONIN-I < 0.017 ng/mL (0.000-0.060)
[2020-12-23 08:11] VITALS: BP 166/73
--- NOTE | 2020-12-23 09:31 | NUR ---
PT AWAKE AND OIRENTE,D SITTING UP IN BED EATING BREAKFAST. ABLE TO FEED SELF WITH SET UP ASSIST D/T LEGAL BLINDNESS. TOOK ALL MEDICATIONS WIHTOUT COMPLICATIONS. NO COMPLAINTS OR CONCERNS STATED AT THIS TIME. PT DOES REPORT SHARP PAIN IN CHEST THAT COMES AND GOES SINCE ADMISSION. CURRENTLY NOT PRESENT. CL IN REACH,S RX2.
--- NOTE | 2020-12-23 09:59 | NUR ---
I have reviewed this patient and I concur with the Shift Assessment completed by the Licensed Practical Nurse today this shift.
[2020-12-23 12:03] VITALS: BP 165/54
[2020-12-23 16:38] VITALS: BP 169/75
--- NOTE | 2020-12-23 16:49 | NUR ---
PT ALERT AND ORIENTED, SITTING IN BED WATCHING T/V. SWAPPED OUT CALL LIGHTS HER WAS NOT WORKING FOR SOUND ON THE T/V. CL IN REACH, SRX2.
[2020-12-23 22:19] VITALS: BP 130/76
[2020-12-24 00:30] VITALS: BP 135/56
[2020-12-24 04:30] VITALS: BP 147/75
[2020-12-24 09:05] LABS: ANION GAP 12.9 mmol/L (8-16); CALCIUM 8.7 mg/dL (8.5-10.1); CARBON DIOXIDE 27.2 mmol/L (21.0-32.0); CREATININE - SERUM 1.8 mg/dL (0.6-1.3)
[2020-12-24 09:07] LABS: BASOPHILS 0.3 % (0-2); EOSINOPHILS 2.1 % (0-7); IMMATURE GRANULOCYTES 0.1 % (0-5); LYMPHOCYTE ABS# 1.62 10x3/uL (1.18-3.74); LYMPHOCYTES 21.6 % (15-50); MCH 32.5 pg (26.0-34.0); MCHC 33.9 g/dL (31.0-37.0); MCV 95.9 fL (80.0-100.0); MEAN PLATELET VOLUME 9.2 fL (7.4-10.4); MONOCYTES 10.1 % (2-11); NEUTROPHIL ABS# 4.92 10x3/uL (1.56-6.13); NEUTROPHILS 65.8 % (40-80); PLATELET COUNT 201 10x3/uL (130-400); RBC 4.18 10x6/uL (4.00-5.40); RDW 12.9 % (11.5-14.5); WBC 7.5 10x3/uL (4.8-10.8)
[2020-12-24 09:09] LABS: POTASSIUM - SERUM 4.1 mmol/L (3.5-5.1)
[2020-12-24 09:10] LABS: HEMATOCRIT 40.1 % (36.0-48.0); HEMOGLOBIN 13.6 g/dL (12-16)
[2020-12-24 09:11] LABS: ALBUMIN 3.2 g/dL (3.4-5.0); BILIRUBIN - TOTAL 0.32 mg/dL (0.2-1.3); PROTEIN - SERUM 7.1 g/dL (6.4-8.2)
[2020-12-24 12:49] VITALS: BP 142/68
--- NOTE | 2020-12-24 14:36 | NUR ---
PT AWAKE AND ORIENTED, UP WITH STANDBY ASSIST IN ROOM DUE TO BLINDNESS. HAS TAKEN ALL MEDICATIONS WITH NO REPORTED OR NOTED COMPLICATIONS. PT STATES SHE WILL BE READY TO GO HOME TOMORROW. NOTED INCREASING ANXIETY AND TEARFULLNESS THE DAY PROGRESSES. NO COMPLAINTS OR CONCERNS STATED AT THIS TIME. CL IN REACH, SRX2. BED ALARM ON AND ACTIVE WNL.
--- NOTE | 2020-12-24 17:22 | NUR ---
I have reviewed this patient and I concur with the Shift Assessment completed by the Licensed Practical Nurse today this shift.
[2020-12-24 20:00] VITALS: BP 147/74
[2020-12-25] VITALS: BP 137/69
[2020-12-25 04:00] VITALS: BP 154/72
[2020-12-25 05:59] LABS: BASOPHILS 0.1 % (0-2); EOSINOPHILS 4.4 % (0-7); HEMATOCRIT 38.2 % (36.0-48.0); HEMOGLOBIN 13.3 g/dL (12-16); IMMATURE GRANULOCYTES 0.3 % (0-5); LYMPHOCYTE ABS# 1.97 10x3/uL (1.18-3.74); LYMPHOCYTES 27.9 % (15-50); MCH 32.7 pg (26.0-34.0); MCHC 34.8 g/dL (31.0-37.0); MEAN PLATELET VOLUME 9.1 fL (7.4-10.4); MONOCYTES 10.9 % (2-11); NEUTROPHIL ABS# 3.99 10x3/uL (1.56-6.13); NEUTROPHILS 56.4 % (40-80); PLATELET COUNT 209 10x3/uL (130-400); RBC 4.07 10x6/uL (4.00-5.40); RDW 12.8 % (11.5-14.5); WBC 7.1 10x3/uL (4.8-10.8)
[2020-12-25 06:17] LABS: ALBUMIN 2.9 g/dL (3.4-5.0); ANION GAP 11.8 mmol/L (8-16); BILIRUBIN - TOTAL 0.24 mg/dL (0.2-1.3); CALCIUM 8.4 mg/dL (8.5-10.1); CARBON DIOXIDE 23.6 mmol/L (21.0-32.0); CREATININE - SERUM 1.8 mg/dL (0.6-1.3); MAGNESIUM - SERUM 2.6 mg/dL (1.8-2.4); POTASSIUM - SERUM 3.4 mmol/L (3.5-5.1); PROTEIN - SERUM 6.7 g/dL (6.4-8.2)
[2020-12-25 06:28] LABS: MCV 93.9 fL (80.0-100.0)
[2020-12-25 08:43] VITALS: BP 155/66
--- NOTE | 2020-12-25 11:48 | MORECARE ---
CASE MANAGEMENT DISCHARGE SUMMARY PATIENT: ANGELES LEAL UNIT: [id number] ADM DATE: 12/23/20 AGE: 70 : 52 SEX: F ROOM/BED: D.2127 AUTHOR: TABITHA FRANCISCO PHYSICIAN: REFERRING PHYSICIAN: ROGER BARON MD DATE OF SERVICE: 12/25/20 Discharge Plan Patient Name: ANGELES LEAL Facility: [facility]:[place] : 1950 Planned Disposition: Home with Home Health Anticipated Discharge Date: Discharge Date: Expected LOS: Initial Reviewer: [email or web address] Initial Review Date: 12/25/2020 Generated: 12/25/20 12:47 pm DCPIA - Discharge Planning Initial Assessment Updated by [email or web address]: Olivia Alonso on 12/25/20 11:45 am * Is the patient Alert and Oriented? Yes * PCP Dr. Stevens * Pharmacy [facility] * Preadmission Environment Home Alone * ADLs Partial Dependent * Partial ADLs (Assistance needed) Medication Management * Equipment Other Oxygen Walker Wheelchair * Other Equipment Portable oxygen * List name and contact numbers for known caregivers / representatives who currently or will assist patient after discharge: Rosalba [facility] - [phone] * Verbal permission to speak to the caregivers and representatives has been obtained from the patient. Yes * Community resources currently utilized Home Health * Please name any agencies selected above. [facility] * Additional services required to return to the preadmission environment? No * Can the patient safely return to the preadmission environment? Yes * Has this patient been hospitalized within the prior 30 days at any hospital? No Coverage Notice Reviewer: [email or web address] - Olivia Alonso Notice Issued Date-Time: 12/22/2020 16:35 Notice Type: Medicare Outpatient Observation Notice Notice Delivered To: Patient Relationship to Patient: Self Oracle Sql Developer Name: Delivery Method: HAND - Hand Delivered Aleyda Days: Prior Verbal Notification: Recipient Understood Notice: Yes Recipient Signature: Yes Med Rec Note Co-signed by Attending: Coverage Notice Comment: DOLORES explained, signed, given, copy placed in MR Patient Name: ANGELES LEAL Page [phone] at 1148 All edits/amendments must be made on the electronic document DICTATION DATE: 12/25/201146 SCRAPER TENDER: BRIANA 12/25/201146 RPT#: [id number] DC DATE: STATUS: [facility] [address] [place] [address] END OF REPORT
--- NOTE | 2020-12-25 11:56 | MORECARE ---
CASE MANAGEMENT DISCHARGE SUMMARY PATIENT: ANGELES LEAL UNIT: [id number] ADM DATE: 12/23/20 AGE: 70 : 54 SEX: F ROOM/BED: D.0136 AUTHOR: NOLANDOC PHYSICIAN: REFERRING PHYSICIAN: ROGER BARON MD DATE OF SERVICE: 12/25/20 Discharge Plan Patient Name: ANGELES LEAL Facility: [facility]:[place] : 1950 Planned Disposition: Home with Home Health Anticipated Discharge Date: Discharge Date: Expected LOS: Initial Reviewer: [email or web address] Initial Review Date: 12/25/2020 Generated: 12/25/20 12:56 pm Comments DCP- Discharge Planning Updated by [email or web address]: Olivia Alonso on 12/25/20 9:[address] Patient Name: ANGELES LEAL Admission Status: ER Accout number: [id number] Admission Date: 12-23-2020 : 1950 Admission Diagnosis: Attending: ROGER RIVERA Current LOS: 2 Anticipated DC Date: Planned Disposition: Home with Home Health Primary Insurance: MEDICARE A & B Discharge Planning Comments: CM met with patient to complete initial dc planning assessment. CM educated patient on the CM role and verbal consent given by patient to complete assessment. CM verified patient's address, phone number, and emergency contact phone numbers. Patient lives at home alone. Patient currently has Home Health Services and wishes to resume at discharge. MIGUELITO form signed by patient for resumption of Home Health with [facility]. Signed form placed in chart and signed form given to patient. I spoke with Livan at [facility] and updated clinical and order faxed. At discharge patient plans to return and feels this is a safe discharge. Patient denied further known discharge needs at this time. . Transportation provider at discharge will be her nephew. She states we will need to call her sister, Rosalba. CM will continue to follow and will assist as needed with dc plans/needs. Dope Weigh Operator: Olivia Alonso DCPIA - Discharge Planning Initial Assessment Updated by [email or web address]: Olivia Alonso on 12/25/20 11:45 am * Is the patient Alert and Oriented? Yes * PCP Dr. Stevens * Pharmacy [place] * Preadmission Environment Home Alone * ADLs Partial Dependent * Partial ADLs (Assistance needed) Medication Management * Equipment Other Oxygen Walker Wheelchair * Other Equipment Portable oxygen * List name and contact numbers for known caregivers / representatives who currently or will assist patient after discharge: Rosalba baptiste - [phone] * Verbal permission to speak to the caregivers and representatives has been obtained from the patient. Yes * Community resources currently utilized Home Health * Please name any agencies selected above. [facility] * Additional services required to return to the preadmission environment? No * Can the patient safely return to the preadmission environment? Yes * Has this patient been hospitalized within the prior 30 days at any hospital? No External Providers External Provider: [facility] Next Contact Date: Service Request Date: Service Type: Resolution: Reviewer: Comments: Coverage Notice Reviewer: [email or web address] Alonso Notice Issued Date-Time: 12/22/2020 16:35 Notice Type: Medicare Outpatient Observation Notice Notice Delivered To: Patient Relationship to Patient: Self Comfort Filler Name: Delivery Method: HAND - Hand Delivered Aleyda Days: Prior Verbal Notification: Recipient Understood Notice: Yes Recipient Signature: Yes Med Rec Note Co-signed by Attending: Coverage Notice Comment: BERNAL explained, signed, given, copy placed in MR Reviewer: [email or web address] Alonso Notice Issued Date-Time: 12/25/2020 11:52 Notice Type: Patient Choice Letter Notice Delivered To: Patient Relationship to Patient: Self Comfort Filler Name: Delivery Method: HAND - Hand Delivered Aleyda Days: Prior Verbal Notification: Recipient Understood Notice: Yes Recipient Signature: Yes Med Rec Note Co-signed by Attending: Coverage Notice Comment: [facility] Reviewer: [email or web address] Alonso Notice Issued Date-Time: 12/25/2020 11:52 Notice Type: IM Discharge Notice Notice Delivered To: Patient Relationship to Patient: Self Comfort Filler Name: Delivery Method: HAND - Hand Delivered Aleyda Days: Prior Verbal Notification: Recipient Understood Notice: Yes Recipient Signature: Yes Med Rec Note Co-signed by Attending: Coverage Notice Comment: IMM explained, signed, given, copy placed in MR Last DP export: 12/25/20 9:48 a Patient Name: ANGELES LEAL Page [phone] Electronically Signed by TABITHA [facility] TULSANikolai on 12/25/20 at 1156 All edits/amendments must be made on the electronic document DICTATION DATE: 12/25/20 1156 FOREST NURSERY SUPERVISOR: BRIANA 12/25/20 1156 RPT#: [id number] DC DATE: STATUS: ADM IN [facility] [address] [place] [address] END OF REPORT
[2020-12-25 12:20] VITALS: BP 147/76
--- NOTE | 2020-12-25 12:43 | NUR ---
PT AWAKE AND ORIENTED, LYING IN BED WATCHING T/V. EXPECTS OT D/C TODAY, STATES HER NEPHEW WILL BE PICKING HER UP IF SHE DOES IN FACT D/C. TAKEN ALL MEDICATIONS WIHTOUT COMPLICATIONS, C/O OF BACK PAIN, PROVIDED PRN PAIN MEDICATION. NO COMPLAINTS OR CONCERNS STATED AT THIS TIME. CL IN REACH, SRX2.
--- NOTE | 2020-12-25 13:20 | NUR ---
Nutrition Follow-up: Eating well. Noted plans for possible d/c today. Diet: Cardiac, Carb Consistent PO intake: 75-100% Wt: 140# (12/22) Labs noted: Na 135, K+ 3.4, BUN 37, Cre 1.8, GFR 30, Glu 204, Ca 8.4, Mg 2.6, Alb 2.9 Meds noted: Protonix, Colace, Lasix, electrolyte protocol -RD will follow up within 7 days if pt still admitted.
[2020-12-25] MEDS ORDERED: LASIX20 MG PO (13:43)
--- NOTE | 2020-12-25 14:03 | MORECARE ---
CASE MANAGEMENT DISCHARGE SUMMARY PATIENT: ANGELES LEAL UNIT: [id number] ADM DATE: 12/23/20 AGE: 70 : 54 SEX: F ROOM/BED: D.5439 AUTHOR: NOLAN,DOC PHYSICIAN: REFERRING PHYSICIAN: ROGER BARON MD DATE OF SERVICE: 12/25/20 Discharge Plan Patient Name: ANGELES LEAL Facility: [facility]:[place] : 1950 Planned Disposition: Home with Home Health Anticipated Discharge Date: Discharge Date: Expected LOS: Initial Reviewer: [email or web address] Initial Review Date: 12/25/2020 Generated: 12/25/20 3:02 pm Comments DCP- Discharge Planning Updated by [id number]: Olivia Alonso on 12/25/20 11:[address] DC order received. DC order and med list faxed to [facility]. Home today with home health. DCP- Discharge Planning Updated by [id number]: Olivia Alonso on 12/25/20 9:[address] Patient Name: ANGELES LEAL Admission Status: ER Accout number: [id number] Admission Date: 12-23-2020 : 1950 Admission Diagnosis: Attending: ROGER RIVERA Current LOS: 2 Anticipated DC Date: Planned Disposition: Home with Home Health Primary Insurance: MEDICARE A & B Discharge Planning Comments: CM met with patient to complete initial dc planning assessment. CM educated patient on the CM role and verbal consent given by patient to complete assessment. CM verified patient's address, phone number, and emergency contact phone numbers. Patient lives at home alone. Patient currently has Home Health Services and wishes to resume at discharge. MIGUELITO form signed by patient for resumption of Home Health with [facility]. Signed form placed in chart and signed form given to patient. I spoke with Livan at [facility] and updated clinical and order faxed. At discharge patient plans to return and feels this is a safe discharge. Patient denied further known discharge needs at this time. . Transportation provider at discharge will be her nephew. She states we will need to call her sister, Rosalba. CM will continue to follow and will assist as needed with dc plans/needs. Receiving Associate: Olivia Alonso DCPIA - Discharge Planning Initial Assessment Updated by [id number]: Olivia Alonso on 12/25/20 11:45 am * Is the patient Alert and Oriented? Yes * PCP Dr. Stevens * Pharmacy [place] * Preadmission Environment Home Alone * ADLs Partial Dependent * Partial ADLs (Assistance needed) Medication Management * Equipment Other Oxygen Walker Wheelchair * Other Equipment Portable oxygen * List name and contact numbers for known caregivers / representatives who currently or will assist patient after discharge: Rosalba baptiste - [phone] * Verbal permission to speak to the caregivers and representatives has been obtained from the patient. Yes * Community resources currently utilized Home Health * Please name any agencies selected above. [facility] * Additional services required to return to the preadmission environment? No * Can the patient safely return to the preadmission environment? Yes * Has this patient been hospitalized within the prior 30 days at any hospital? No Coverage Notice Reviewer: [id number] Alonso Notice Issued Date-Time: 12/22/2020 16:35 Notice Type: Medicare Outpatient Observation Notice Notice Delivered To: Patient Relationship to Patient: Self Conveyor [employer] Name: Delivery Method: HAND - Hand Delivered Aleyda Days: Prior Verbal Notification: Recipient Understood Notice: Yes Recipient Signature: Yes Med Rec Note Co-signed by Attending: Coverage Notice Comment: BERNAL explained, signed, given, copy placed in MR Reviewer: [id number] Alonso Notice Issued Date-Time: 12/25/2020 11:52 Notice Type: Patient Choice Letter Notice Delivered To: Patient Relationship to Patient: Self Conveyor [employer] Name: Delivery Method: HAND - Hand Delivered Aleyda Days: Prior Verbal Notification: Recipient Understood Notice: Yes Recipient Signature: Yes Med Rec Note Co-signed by Attending: Coverage Notice Comment: MIGUELITO for [facility] Reviewer: [id number] Alonso Notice Issued Date-Time: 12/25/2020 11:52 Notice Type: IM Discharge Notice Notice Delivered To: Patient Relationship to Patient: Self Conveyor [employer]ender [employer] Name: Delivery Method: HAND - Hand Delivered Aleyda Days: Prior Verbal Notification: Recipient Understood Notice: Yes Recipient Signature: Yes Med Rec Note Co-signed by Attending: Coverage Notice Comment: IMM explained, signed, given, copy placed in MR Last DP export: 12/25/20 9:56 a Patient Name: ANGELES LEAL Page [id number] at 1403 All edits/amendments must be made on the electronic document DICTATION DATE: 12/25/201401 STUNT PERSON: BRIANA 12/25/201401 RPT#: [id number] DC DATE: STATUS: ADM IN [facility] [address] [place] [address] END OF REPORT
--- NOTE | 2020-12-25 14:12 | NUR ---
PAGED PULMONARY AND CARDIOLOGY IN REGARDS TO PT DC HOME. PER DR TOBAR, PATIENT OK TO DC FROM PULMONARY STANDPOINT. FOLLOW UP IN 2-3 WEEKS IN CLINIC.PER APN. Vale DUMAS. OK FROM CARDIOLOGY, PATIENT NEEDS TO FOLLOW UP IN 4 WEEKS IN CLINIC.
--- NOTE | 2020-12-25 16:51 | NUR ---
PT ALERT AND OIRENTED, ESCORTED OUT TO WHEELCHIAR TO POV, SON DRIVING.
--- NOTE | 2020-12-25 23:00 | MORECARE ---
CASE MANAGEMENT DISCHARGE SUMMARY PATIENT: ANGELES LEAL UNIT: [id number] ADM DATE: 12/23/20 AGE: 70 : 54 SEX: F ROOM/BED: D.7412 AUTHOR: NOLAN,DOC PHYSICIAN: REFERRING PHYSICIAN: ROGER BARON MD DATE OF SERVICE: 12/25/20 Discharge Plan Patient Name: ANGELES LEAL Facility: [facility]:[place] : 1950 Planned Disposition: Home with Home Health Anticipated Discharge Date: Discharge Date: 12/25/2020 Expected LOS: Initial Reviewer: [id number] Initial Review Date: 12/25/2020 Generated: 12/25/20 11:59 pm Comments DCP- Discharge Planning Updated by [email or web address]: Olivia Alonso on 12/25/20 11:[address] DC order received. DC order and med list faxed to [facility]. Home today with home health. DCP- Discharge Planning Updated by [email or web address]: Olivia Alonso on 12/25/20 9:[address] Patient Name: ANGELES LEAL Admission Status: ER Accout number: [id number] Admission Date: 12-23-2020 : 1950 Admission Diagnosis: Attending: ROGER RIVERA Current LOS: 2 Anticipated DC Date: Planned Disposition: Home with Home Health Primary Insurance: MEDICARE A & B Discharge Planning Comments: CM met with patient to complete initial dc planning assessment. CM educated patient on the CM role and verbal consent given by patient to complete assessment. CM verified patient's address, phone number, and emergency contact phone numbers. Patient lives at home alone. Patient currently has Home Health Services and wishes to resume at discharge. MIGUELITO form signed by patient for [facility] of [facility]. Signed form placed in chart and signed form given to patient. I spoke with Livan at [facility] and updated clinical and order faxed. At discharge patient plans to return and feels this is a safe discharge. Patient denied further known discharge needs at this time. . Transportation provider at discharge will be her nephew. She states we will need to call her sister, Rosalba. CM will continue to follow and will assist as needed with dc plans/needs. Thermodynamics Professor: Olivia Alonso DCPIA - Discharge Planning Initial Assessment Updated by [id number]: Olivia Alonso on 12/25/20 11:45 am * Is the patient Alert and Oriented? Yes * PCP Dr. Stevens * Pharmacy [place] * Preadmission Environment Home Alone * ADLs Partial Dependent * Partial ADLs (Assistance needed) Medication Management * Equipment Other Oxygen Walker Wheelchair * Other Equipment Portable oxygen * List name and contact numbers for known caregivers / representatives who currently or will assist patient after discharge: Rosalba baptiste - [phone] * Verbal permission to speak to the caregivers and representatives has been obtained from the patient. Yes * Community resources currently utilized Home Health * Please name any agencies selected above. [facility] * Additional services required to return to the preadmission environment? No * Can the patient safely return to the preadmission environment? Yes * Has this patient been hospitalized within the prior 30 days at any hospital? No Coverage Notice Reviewer: [email or web address] James Alonso Notice Issued Date-Time: 12/22/2020 16:35 Notice Type: Medicare Outpatient Observation Notice Notice Delivered To: Patient Relationship to Patient: Self Block Breaker Name: Delivery Method: HAND - Hand Delivered Aleyda Days: Prior Verbal Notification: Recipient Understood Notice: Yes Recipient Signature: Yes Med Rec Note Co-signed by Attending: Coverage Notice Comment: BERNAL explained, signed, given, copy placed in MR Reviewer: [id number] Alonso Notice Issued Date-Time: 12/25/2020 11:52 Notice Type: Patient Choice Letter Notice Delivered To: Patient Relationship to Patient: Self Block Breaker Name: Delivery Method: HAND - Hand Delivered Aleyda Days: Prior Verbal Notification: Recipient Understood Notice: Yes Recipient Signature: Yes Med Rec Note Co-signed by Attending: Coverage Notice Comment: [facility] for [facility] Reviewer: [id number] James Alonso Notice Issued Date-Time: 12/25/2020 11:52 Notice Type: IM Discharge Notice Notice Delivered To: Patient Relationship to Patient: Self Block Breaker Name: Delivery Method: HAND - Hand Delivered Aleyda Days: Prior Verbal Notification: Recipient Understood Notice: Yes Recipient Signature: Yes Med Rec Note Co-signed by Attending: Coverage Notice Comment: IMM explained, signed, given, copy placed in MR Last DP export: 12/25/20 12:03 p Patient Name: ANGELES LEAL Page [id number] at 2300 All edits/amendments must be made on the electronic document DICTATION DATE: 12/25/202258 MICROSCOPIST: BRIANA 12/25/202258 RPT#: [id number] DC DATE:12/25/20 STATUS: DIS IN [facility] [address] [facility] [place] [address] END OF REPORT
== END 2020-12-25 16:52 | disposition home health service (06) | DRG 291 ==
LOC: D.ER 09:22 → D.M2 12:14 → OBSVTIME 12:14 → D.M2 12:14
PROVIDERS: Emergency Medicine; Family Medicine; ADMIT Family Medicine Adult Medicine; ATTEND Family Medicine Adult Medicine
DX: I13.0 Hypertensive heart and chronic kidney disease with heart failure and stage 1 through stage 4 chronic kidney disease, or unspecified chronic kidney disease (principal); I50.31 Acute diastolic (congestive) heart failure; J96.01 Acute respiratory failure with hypoxia; J44.1 Chronic obstructive pulmonary disease with (acute) exacerbation; N18.9 Chronic kidney disease, unspecified; E11.22 Type 2 diabetes mellitus with diabetic chronic kidney disease; Z99.81 Dependence on supplemental oxygen; F41.9 Anxiety disorder, unspecified; K74.60 Unspecified cirrhosis of liver; I35.0 Nonrheumatic aortic (valve) stenosis; E11.51 Type 2 diabetes mellitus with diabetic peripheral angiopathy without gangrene